=== PATIENT | female | born 1955 | race Caucasian/White ===

== ENCOUNTER → 2017-10-17 07:56 | Outpatient (CLI) | payer MEDICARE, SELFPAY ==
[2017-10-17 10:04] LABS: Absolute Lymphocyte Count 1.66 X10^3/ul (0.83-4.51); Basophil# 0.03 X10^3/uL; Basophil% 0.5 % (0-1); Eosinophil# 0.26 X10^3/uL; Eosinophils% 4.7 % (0-5); Hematocrit 38.5 % (37-47); Hemoglobin 12.4 g/dl (12.0-15.0); Lymphocyte # 1.66 X10^3/ul (4.0); Lymphocyte % 29.8 % (19-41); Mean Corp Hgb Conc 32.2 g/gl (32-36); Mean Corpuscular Hgb 28.8 pg (27.0-32.0); Mean Corpuscular Volume 89.3 fL (81-99); Mean Platelet Vol. 10.3 fl (6.2-12.0); Monocyte# 0.65 X10^3/uL; Monocyte% 11.7 % (0-10); Neutrophil # 2.96 X10^3/uL (2.7-7.7); Neutrophil % 53.1 % (47-70); Platelet Count 260 K/mm3 (150-450); RBC Distribution Width CV 13.6 % (11.6-14.6); RBC Distribution Width SD 43.3 fl (35.1-43.9); Red Blood Count 4.31 M/mm3 (4.2-5.4); White Blood Count 5.6 K/mm3 (4.4-11.0)
[2017-10-17 10:06] LABS: POSITIVE COUNT NO; POSITIVE DIFFERENTIAL NO; POSITIVE MORPHOLOGY NO
[2017-10-17 10:30] LABS: ALB/GLOB Ratio 0.7 RATIO (0.9-2.4); AST(SGOT) 23 U/L (15-37); Alanine Aminotransfer ALT/SGPT 29 U/L (13-56); Albumin, Serum 3.2 g/dL (3.2-5.0); Alkaline Phosphatase 82 U/L (45-117); Anion Gap 6 (5-15); BUN 16 mg/dL (7-18); BUN/Creat Ratio 20.6 RATIO (10-20); Calcium,Total 8.9 mg/dL (8.5-10.1); Chloride 108 mmol/L (98-107); Cholesterol 181 mg/dL (200); Creatinine, Serum 0.78 mg/dL (0.55-1.02); EST Glomerular Filtration Rate 80 mL/min (>60); Est Glom Filt Rate - Afr Amer 96 mL/min (>60); Globulin 4.5 g/dL (2.2-4.2); Glucose 78 mg/dL (74-106); High Density Lipoprotein 48 mg/dL; Potassium 4.3 mmol/L (3.5-5.1); Protein, Total 7.7 g/dL (6.4-8.2); Sodium Level 142 mmol/L (136-145); T4 Free Direct 1.19 ng/dL (0.76-1.46); Thyroid Stim Hormone (TSH) 1.05 uIU/mL (0.358-3.74); Triglycerides 152 mg/dL; Very Low Density Lipoprotein 30 mg/dL (5-40)
== END ==
PROVIDERS: Family Provider Family Medicine; PCP Family Medicine; Visit Provider Family Medicine
DX: I10 Essential (primary) hypertension (principal); E03.9 Hypothyroidism, unspecified; E78.5 Hyperlipidemia, unspecified
CPT/HCPCS: 36415; 80053; 80061; 84439; 84443; 85025

== ENCOUNTER → 2019-04-19 07:51 | Outpatient (CLI) | payer MEDICARE, SELFPAY ==
[2019-04-19 10:06] LABS: Erythrocyte Sedimentation Rate 29 mm/hr (0-30)
[2019-04-19 10:08] LABS: Absolute Lymphocyte Count 1.31 X10^3/uL (0.83-4.51); Absolute Neutrophil Count 3.2 X10^3/uL (2.0-7.7); Basophil# 0.04 X10^3/uL; Basophil% 0.8 % (0-1); Eosinophil# 0.15 X10^3/uL; Eosinophils% 2.9 % (0-5); Hematocrit 40.6 % (37-47); Lymphocyte # 1.31 X10^3/ul (4.0); Lymphocyte % 25.3 % (19-41); Mean Corpuscular Hgb 28.7 pg (27.0-32.0); Mean Corpuscular Volume 89.6 fL (81-99); Mean Platelet Vol. 10.2 fl (6.2-12.0); Monocyte% 9.7 % (0-10); NRBC Flagged by Analyzer 0 % (0-5); Neutrophil # 3.17 X10^3/uL (2.7-7.7); Neutrophil % 61.1 % (47-70); Platelet Count 218 K/mm3 (150-450); RBC Distribution Width CV 14.2 % (11.6-14.6); RBC Distribution Width SD 46.4 fl (35.1-43.9); Red Blood Count 4.53 M/mm3 (4.2-5.4); White Blood Count 5.2 K/mm3 (4.4-11.0)
[2019-04-19 10:29] LABS: Vitamin B12 554 pg/mL (211-911)
[2019-04-19 10:32] LABS: Hemoglobin A1c 5.7 % (4.2-6.3)
[2019-04-19 10:52] LABS: ALB/GLOB Ratio 0.8 RATIO (0.9-2.4); AST(SGOT) 19 U/L (15-37); Alanine Aminotransfer ALT/SGPT 28 U/L (13-56); Albumin, Serum 3.5 g/dL (3.2-5.0); Alkaline Phosphatase 79 U/L (45-117); Anion Gap 7 (5-15); BUN 17 mg/dL (7-18); BUN/Creat Ratio 21.1 RATIO (10-20); CPK Total, Creatine Kinase 163 U/L (26-192); Chloride 107 mmol/L (98-107); Cholesterol 210 mg/dL (200); EST Glomerular Filtration Rate 76 mL/min (>60); Est Glom Filt Rate - Afr Amer 92 mL/min (>60); Globulin 4.6 g/dL (2.2-4.2); Glucose 83 mg/dL (74-106); High Density Lipoprotein 55 mg/dL; Potassium 4.2 mmol/L (3.5-5.1); Protein, Total 8.1 g/dL (6.4-8.2); Rheumatoid Factor < 10.0 IU/mL (<15); Sodium Level 142 mmol/L (136-145); T4 Free Direct 1.32 ng/dL (0.76-1.46); Thyroid Stim Hormone (TSH) 0.49 uIU/mL (0.358-3.74); Triglycerides 157 mg/dL; Very Low Density Lipoprotein 31 mg/dL (5-40)
[2019-04-20 15:04] LABS: SJOGREN'S Anti-SS-A test < 0.2 AI (0.0-0.9); SJOGREN'S Anti-SS-B test < 0.2 AI (0.0-0.9)
[2019-04-20 15:08] LABS: ANTINUCLEAR ANTIBODIES DIRECT Negative (Negative)
[2019-04-21 17:36] LABS: Albumin 3.2 g/dL (2.9-4.4); Albumin, Ur 42.5 % (.); Alpha-1-Globulin, Ur 1.8 % (.); Alpha-1-Globulins 0.3 g/dL (0.0-0.4); Alpha-2-Globulins 0.8 g/dL (0.4-1.0); Alpha-2-Globulins, Ur 6.8 % (.); Beta Globulin, Ur 14.7 % (.); Cytoplasmic Ab (C-ANCA) <1:20 titer (Neg:<1:20); Gamma Globulin 1.7 g/dL (0.4-1.8); Gamma Globulin, Ur 34.1 % (.); Immunoglobulin A 367 mg/dL (87-352); Immunoglobulin G 1807 mg/dL (700-1600); Immunoglobulin M 93 mg/dL (26-217); M-Spike, Ur % Not Observed % (Not Observed); PROEL- TOTAL PROTEIN 7.2 g/dL (6.0-8.5); Total Protein, Ur 51.7 mg/dL (Not Estab.)
[2019-04-21 18:11] LABS: Perinuclear Ab (P-ANCA) <1:20 titer (Neg:<1:20)
== END ==
PROVIDERS: Family Provider Family Medicine; PCP Family Medicine; Referring Provider Psychiatry & Neurology Neurology; Visit Provider Psychiatry & Neurology Neurology
DX: E03.9 Hypothyroidism, unspecified (principal); G62.9 Polyneuropathy, unspecified; E78.5 Hyperlipidemia, unspecified; I10 Essential (primary) hypertension
CPT/HCPCS: 36415; 80053; 80061; 82550; 82607; 82784; 83036; 84165; 84166; 84439; 84443; 85025; 85652; 86038; 86235; 86256; 86334; 86335; 86431

== ENCOUNTER → 2019-05-10 | Outpatient (CLI) | payer MEDICARE, SELFPAY ==
[2015-02-27 10:19] VITALS: BMI 23.4
--- NOTE | 2019-05-10 12:20 | RAD_ITS ---
STUDY: X-RAY CHEST REASON FOR EXAM: Female, 63 years old. Scleritis, secondary iridocyclitis TECHNIQUE: PA and lateral views of the chest. COMPARISON: None. FINDINGS: There is no focal consolidation. The lungs are hyperinflated. Normal size heart. There is a moderate-sized hiatal hernia. Normal visualized pulmonary arteries. There is atherosclerotic calcification of the aortic arch with tortuosity. Normal visualized thoracic spine. Normal visualized ribs, clavicles, and shoulders. There are peripheral calcifications of the visualized abdominal aorta. RAD/Chest PA and Lateral IMPRESSION: Hiatal hernia. Hyperinflated lungs. Atherosclerosis. Electronically Signed: Latoya Sands MD at 17:37 EST Tel , Service support ,
[2019-05-10 14:40] LABS: Erythrocyte Sedimentation Rate 50 mm/hr (0-30)
[2019-05-10 14:58] LABS: CRP < 2.90 mg/L (0.0-3.0); Rheumatoid Factor < 10.0 IU/mL (<15)
[2019-05-10 15:27] LABS: Absolute Lymphocyte Count 1.94 X10^3/uL (0.83-4.51); Absolute Neutrophil Count 6.5 X10^3/uL (2.0-7.7); Basophil# 0.01 X10^3/uL; Basophil% 0.1 % (0-1); Hematocrit 36.7 % (37-47); Hemoglobin 11.6 g/dL (12.0-15.0); Lymphocyte # 1.94 X10^3/ul (4.0); Lymphocyte % 21.2 % (19-41); Mean Corp Hgb Conc 31.6 g/dL (32-36); Mean Corpuscular Hgb 28.2 pg (27.0-32.0); Mean Corpuscular Volume 89.1 fL (81-99); Mean Platelet Vol. 10.7 fl (6.2-12.0); Monocyte# 0.66 X10^3/uL; Monocyte% 7.2 % (0-10); NRBC Flagged by Analyzer 0 % (0-5); Neutrophil # 6.54 X10^3/uL (2.7-7.7); Neutrophil % 71.3 % (47-70); Platelet Count 254 K/mm3 (150-450); RBC Distribution Width CV 14.6 % (11.6-14.6); RBC Distribution Width SD 47.3 fl (35.1-43.9); Red Blood Count 4.12 M/mm3 (4.2-5.4); White Blood Count 9.2 K/mm3 (4.4-11.0)
[2019-05-13 02:46] LABS: Rapid Plasmin Reagin (RPR) NONREACTIVE (NONREACTIVE)
[2019-05-13 16:07] LABS: Cytoplasmic Ab (C-ANCA) <1:20 titer (Neg:<1:20); QNTFERON TB Mitogen Value > 10.00 IU/mL (.); QNTFERON TB Nil Value 0.08 IU/mL (.); QNTFERON TB2+ Ag Value 0.11 IU/mL (.)
[2019-05-13 18:50] LABS: Angiotensin Convert Enzyme < 15 U/L (14-82); Perinuclear Ab (P-ANCA) <1:20 titer (Neg:<1:20); QNTIFERON TB Positive Criteria Negative (Negative)
[2019-05-13 18:51] LABS: HLA B27 Negative (.)
== END | disposition home or self-care (01) ==
LOC: MTLAB 12:15
PROVIDERS: Family Provider Family Medicine; PCP Family Medicine; Referring Provider Ophthalmology; Visit Provider Ophthalmology
DX: H15.091 Other scleritis, right eye (principal); H20.041 Secondary noninfectious iridocyclitis, right eye
CPT/HCPCS: 36415; 71046; 81374; 82164; 85025; 85652; 86038; 86140; 86256; 86431; 86480; 86592

== ENCOUNTER 2019-05-12 07:39 | Day surgery (SDC) | payer MEDICARE, SELFPAY ==
[2015-02-27 10:19] VITALS: BMI 23.4
--- NOTE | 2019-05-12 07:46 | H&P.OPEN ---
History of Present Illness Date of Admission: 05/12/19 The patient is a 63 year old F for screening colonoscopy. Patient has never had a previous colonoscopy. Patient's siblings have had multiple polyps?sister had 3 brother had 5, sister has to go back in 3 years brother has go back in 1 year unsure of the sizes, no family history of colon cancer. Patient states she has bowel movements daily and occasionally had some darker blood. Patient denies any reflux symptoms she is on Celebrex currently to taper prednisone. Patient is not on any PPI or H2 inhibitors, but was recommended to be on them. Past Medical/Surgical History - Planned Operation Planned Operative Procedure/s: cscope Date of Operative Procedure: 05/12/19 Permit Signed: No S.O.S: No Is This Patient Having a Total Joint: No - Previous Hospitalizations/Surgeries HX Hospitalizations: No HX of Surgeries: TONSILLECTOMY. 5TH FINGER L HAND 1980. EXP LAP 1982-found that appendix previously ruptured only scar tissue left. 5TH FINGER L HAND 1995. BASAL CELL CANCER R SIDE TEMPAL AREA 2012. right tkr 2014 Any Problems With Anesthesia: Yes - 1982 slow to awaken You/Your Family Experience Fever (Hyperthermia) With Anes: No Cholinesterase deficiency: No - Cardiovascular Hx Chest Pain within Last 2 months: No Hx of Irregular Heartbeat and/or Afib: No Hx Heart Attack: No Hx Congestive Heart Failure: No Hx Rheumatic Fever: No Hx Hypertension: Yes - controlled with med Hx Internal Defibrillator: No Hx Pacemaker: No Hx Cardiac Catheterization: No Hx Cardiac Surgery/Stents/Etc.: No Hx Stress Test: No HX Edema: No Hx Pain in Legs when Walking/Leg Cramps: Yes - d/t hereditary neuropathy disorder (cmt) - Respiratory Chronic Cough: No HX of Shortness of Breath: Yes - slightly sob with 2 flights of stairs Hoarseness: No Hx Chronic Obstructive Pulmonary Disease (COPD): No Hx Asthma: No Hx Emphysema: No Hx Sleep Apnea: No CPAP: No BIPAP: No Hx Oxygen Use at Home: No Hx Respiratory Tract Infection/Cold (presently): No Do You Snore Loudly (louder than talking or can be heard): No Do You Often Feel Tired/ Fatigued/ Sleepy Dring Daytime?: No Has Anyone Observed You Stop Breathing During Sleep?: No Result (for STOP score): Negative Hx Smoking: No Smoking Status: Never smoker - Gastrointestinal Hx Gastroesophageal Reflux: Yes Controlled With Meds: No - diet controlled Hx Gastrointestinal Disorders: No Hx Gastrointestinal Bleed: No Hx Ulcer: Yes - 10 yrs ago Hx Hiatal Hernia: Yes - small Difficulty Chewing/Swallowing: No Recent Onset of Swallowing Problems: No Special diet followed at home: No - . Hx Unplanned Weight Loss of 20#: No HX Unplanned Weight Gain of 20#: No - Neurological Hx Seizures: No HX Syncope/Blackout Spells/Unconsciousness: Yes - syncope from side effects of gabapentin/fall risk/ Hx CVA/Stroke: No Hx Transient Ischemic Attacks (TIA): No Hx Multiple Sclerosis: No Hx Parkinson's Disease: No Hx Head/Neck Injury: No Hx Headaches: No Hx Back Injury/Pain: Yes - arthritis pain/patient had hereditary neuropathy disorder(cmt) Recent Onset of Speech Difficulty: No Restless Legs: Yes Does patient have nerve stimulator: No Patient instructed to have device shut off: No Rep notified?: No - Blood Disorder Hx Leukemia: No Bleeding Tendencies: No Hx Deep Vein Thrombosis: No Hx High Cholesterol: Yes - on med Blood Transmitted Disease: No Hx Hepatitis: No Hx Cirrhosis: No Hx Anemia: Yes - in the past Hx Blood Disorders: No - Reproduction : No Is Patient Lactating: No Hx Hysterectomy: No Hx Tubal Ligation: No Are You Post Menopause: Yes - Genitourinary Hx Renal Disease: No - Musculoskeletal Hx Arthritis: Yes Hx Rheumatoid Arthritis: No Hx Gout: No Recent Onset of an Orthopedic Problem: No - . - Endocrine Hx Diabetes: No Thyroid Disease: Yes - on med Hx Steroid Therapy: Yes - on prednisone currently for eye irritation - Psycho/Social Hx Substance Use: No Hx Alcohol Use: No Hx Anxiety: No Hx Depression: No Mental Illness: No Hx Dementia: No - Miscellaneous Hx Cancer: Yes - BASAL CELL R YARSANI Recent Exposure to Contagious Disease: No Active MRSA: No Hx of C-Diff: No Any Loose Teeth: No Additional information pertinent to anesthesia:: patient has a pessery Allergies acetaminophen [From Percocet] Allergy (Verified 05/10/19 13:34) Hives aloe vera Allergy (Verified 05/10/19 13:31) Hives coconut Allergy (Verified 05/10/19 13:34) Other cocanut milk lanolin Allergy (Verified 05/10/19 13:34) Hives miconazole nitrate [From Monistat 7] Allergy (Verified 05/10/19 13:31) Hives oxycodone [From Percocet] Allergy (Verified 05/10/19 13:34) Hives Penicillins Allergy (Verified 05/10/19 13:31) Hives Sulfa (Sulfonamide Antibiotics) Allergy (Verified 05/10/19 13:31) Hives tioconazole [From Monistat 1] Allergy (Verified 05/10/19 13:31) Hives erythromycin base [Erythromycin Base] Adverse Reaction (Verified 05/10/19 13:31) Upset Stomach gluten Adverse Reaction (Verified 05/10/19 13:31) Other hydromorphone Adverse Reaction (Verified 05/10/19 13:34) confusion oxytocin Adverse Reaction (Verified 05/10/19 13:34) syncope tramadol Adverse Reaction (Verified 05/10/19 13:34) Diarrhea VITAMIN B12 Allergy (Uncoded 05/10/19 13:31) Hives - Discharge Is Pt Admitted From a Shelter, or a Mcfp: No Who Could Help: family Special Equipment Used at Home: cane After D/C, Where Do you Plan to Go: Return Home - From the PAT History Number of Risk Factors: 6 - Physical Exam Vitals/I&O's: Body Mass Index (BMI) 23.4 General: Alert, Oriented x3, Cooperative, No apparent distress HEENT: Atraumatic Lungs: Normal air movement Cardiovascular: Regular rate Abdomen: Soft, Non Tender, Non-Distended Extremities: No clubbing, No cyanosis, No edema Neurological: Cranial nerves II-XII grossly intact Psych/Mental Status: Normal Affect Assessment/Plan 63-year-old female for screening for colon cancer Surgery Risks - Colonoscopy I discussed with the patient the risks of the procedure: Yes Risks Include but are not Limited To: Risks include but are not limited to: Bleeding, perforation requiring further surgery, inability to complete colonoscopy requiring barium enema.
[2019-05-12 08:10] VITALS: BP 151/91; PULSE 76; RESP 16; TEMP 36.7; O2SAT 94; BMI 28.1
[2019-05-12] MEDS: Lactated Ringers 1,000 ML 100 ML IV (08:18)
--- NOTE | 2019-05-12 08:45 | COLBX_PTH ---
PATIENT: ЕЛЕНА GOMEZ LOC: EN U#:[id number] AGE/SX: 63/F ROOM: RE05/12/[address]: Dr. Lisa Gant MD : 1955 BED: DIS: 05/12/2019 SPEC #: [id number] RECD: 05/12/19 10:29 STATUS: CORTNEY RERhoda #: [id number] ALEN: 05/12/19 08:[address]: Lisa Gant DEPT: SURGICAL PATHOLOGY RECD BY: Festus Perez ENTERED: 05/12/19 11:03 SP TYPE: COLON BX OTHR DR: Dr. Juan Pablo Araujo DO Tissues: Descending colon Procedures: Surgery Specimen Level IV HEADER OPERATION: Colonoscopy - open access (MAC) PRE-OP DIAGNOSIS: Screening TISSUE SUBMITTED: Descending colon polyp MICROSCOPIC DIAGNOSIS Descending colon polyp, biopsy: Fragments of tubular adenoma. SJ:prateek 05/13/19 MICROSCOPIC DESCRIPTION Slides are reviewed. GROSS DESCRIPTION Received in fixative is one container labeled with the patient's name and designated descending colon polyp. The specimen consists of multiple irregular fragments of light amor soft tissue that in aggregate measure 1 x 0.3 x 0.1 cm. The specimen is totally submitted in one cassette. / SJ:prateek 05/12/19 TC:5 CPT: 53486
[2019-05-12 09:17] VITALS: BP 136/88; BP 151/91; PULSE 62; RESP 16; TEMP 36.2; O2SAT 96
[2019-05-12 09:20] VITALS: BP 136/83; BP 151/91; PULSE 66; RESP 16; O2SAT 94
--- NOTE | 2019-05-12 09:20 | OP.COLON_ITS ---
Patient Name: Stacia Gamboa Procedure Date: 05/12/2019 8:43 AM Date of : 1955 Age: 63 Procedure: Colonoscopy Indications: Screening for colorectal malignant neoplasm, siblings with colon polyps unsure of size Providers: Lisa Gant MD Referring MD: Juan Pablo Araujo Medicines: Monitored Anesthesia Care Patient Profile: This is a 63 year old female. Last Colonoscopy: none. The patient's first colonoscopy is today. Complications: No immediate complications. Procedure: Pre-Anesthesia Assessment: - Prior to the procedure, a History and Physical was performed, and patient medications and allergies were reviewed. The patient's tolerance of previous anesthesia was also reviewed. The risks and benefits of the procedure and the sedation options and risks were discussed with the patient. All questions were answered, and informed consent was obtained. Prior Anticoagulants: The patient has taken no previous anticoagulant or antiplatelet agents. ASA Grade Assessment: II - A patient with mild systemic disease. After reviewing the risks and benefits, the patient was deemed in satisfactory condition to undergo the procedure. After I obtained informed consent, the scope was passed under direct vision. Throughout the procedure, the patient's blood pressure, pulse, and oxygen saturations were monitored continuously. The pediatric colonoscope was introduced through the anus and advanced to the cecum, identified by the ileocecal valve. The colonoscopy was performed without difficulty. The patient tolerated the procedure well. The quality of the bowel preparation was good. Scope In: 8:56:18 AM Scope Withdrawal Time 0 hours 13 minutes 23 seconds Scope Out: 9:13:37 AM Total Procedure Duration Time 0 hours 17 minutes 19 seconds Findings: The perianal and digital rectal examinations were normal. A less than 5 mm polyp was found in the descending colon. The polyp was sessile. The polyp was removed with a cold biopsy forceps. Resection and retrieval were complete. Multiple small-mouthed diverticula were found in the sigmoid colon. The entire examined colon appeared normal on direct and retroflexion views. Impression: - One less than 5 mm polyp in the descending colon, removed with a cold biopsy forceps. Resected and retrieved. - Diverticulosis in the sigmoid colon. - The entire examined colon is normal on direct and retroflexion views. Recommendation: - Discharge patient to home. - High fiber diet. - Continue present medications. - Await pathology results. - Repeat colonoscopy in 5 years for surveillance based on pathology results. Procedure Code(s): --- Professional --- 98067, Colonoscopy, flexible; with biopsy, single or multiple Diagnosis Code(s): --- Professional --- Z12.11, Encounter for screening for malignant neoplasm of colon D12.4, Benign neoplasm of descending colon K57.30, Diverticulosis of large intestine without perforation or abscess without bleeding CPT copyright 2017 [employer]. All rights reserved. The codes documented in this report are preliminary and upon logistics lead review may be revised to meet current compliance requirements. MD Lisa Blanton MD 05/12/2019 9:20:08 AM This report has been signed electronically. Number of Addenda: 0 Note Initiated On: 05/12/2019 8:43 AM
[2019-05-12 09:25] VITALS: BP 136/85; BP 151/91; PULSE 68; RESP 16; O2SAT 96
[2019-05-12 09:26] VITALS: BP 149/72; BP 151/91; PULSE 68; RESP 16; TEMP 36.2; O2SAT 96
[2019-05-12 10:05] VITALS: BP 151/91
== END 2019-05-12 10:31 | disposition home or self-care (01) ==
LOC: EN 07:40 → AC 07:42
PROVIDERS: Family Provider Family Medicine; PCP Family Medicine; Referring Provider Family Medicine; Visit Provider Surgery
PROC: 0DJD8ZZ Inspection of Lower Intestinal Tract, Via Natural or Artificial Opening Endoscopic (ICD-10-PCS; CPT 45378; principal; 2019-05-12 08:40)
DX: Z12.11 Encounter for screening for malignant neoplasm of colon (principal); D12.4 Benign neoplasm of descending colon; K57.30 Diverticulosis of large intestine without perforation or abscess without bleeding; I10 Essential (primary) hypertension; G60.9 Hereditary and idiopathic neuropathy, unspecified; K21.9 Gastro-esophageal reflux disease without esophagitis; E78.00 Pure hypercholesterolemia, unspecified; E07.9 Disorder of thyroid, unspecified; Z85.828 Personal history of other malignant neoplasm of skin; Z79.52 Long term (current) use of systemic steroids; Z79.899 Other long term (current) drug therapy
CPT/HCPCS: 45380; 88305; J7120

== ENCOUNTER → 2019-06-18 07:48 | Outpatient (CLI) | payer MEDICARE, SELFPAY ==
[2019-06-16 14:01] VITALS: BMI 28.1
--- NOTE | 2019-06-18 07:57 | RAD_ITS ---
STUDY: AIR-CONTRAST UPPER GI SERIES. REASON FOR EXAM: Female, 63 years old. Food getting stuck upper and distal since APR 2019 FLUOROSCOPY TIME (if supplied): ( 48 seconds ) minutes/seconds. 16 images were obtained. TECHNIQUE: The patient ingested barium. Multiple images of the esophagus, stomach and duodenum were obtained. COMPARISON: None. FINDINGS: There is evidence of a large sliding hiatal hernia with gastroesophageal reflux. The remainder of the stomach and duodenum is unremarkable. No evidence of ulceration. IMPRESSION: Large hiatal hernia with gastroesophageal reflux. Electronically Signed: Isaias Langley, at 10:35 EST , Service support , STUDY: X-RAY - ESOPHAGUS (BARIUM SWALLOW) WITH FLUOROSCOPY REASON FOR EXAM: Female, 63 years old. Food getting stuck upper and distal since APR 2019 TECHNIQUE: 11 view(s) of the esophagus were obtained following swallowing of barium. FLUOROSCOPY TIME (if supplied): (0:48) minutes/seconds COMPARISON: None. FINDINGS: There is no demonstrated esophageal foreign body. There is no demonstrated stricture or mucosal abnormality. There is a large hiatal hernia with intrathoracic herniation of the fundus of the stomach. Gastroesophageal reflux. The patient ingested a 12 mm tablet of barium without any difficulty. Normal visualized aortic arch and descending thoracic aorta. Normal visualized pulmonary parenchyma. Normal visualized osseous structures of the thorax. RAD/Upper GI w/BA Swallow IMPRESSION: Large hiatal hernia with gastroesophageal reflux. Electronically Signed: Isaias Langley, at 10:37 EST , Service support ,
== END ==
PROVIDERS: Family Provider Family Medicine; PCP Family Medicine; Referring Provider Surgery; Visit Provider Surgery
DX: R13.10 Dysphagia, unspecified (principal)
CPT/HCPCS: 74246

== ENCOUNTER 2019-06-25 08:24 | Day surgery (SDC) | payer MEDICARE, SELFPAY ==
[2019-06-16 14:01] VITALS: BMI 28.1
--- NOTE | 2019-06-17 08:32 | HP_ITS ---
Intake Vital Signs 06/14/19 BMI 28.1 Intake Visit Reasons: Gastrointestinal complaints Fuel Technician Required: No Is patient in pain?: No Allergies acetaminophen [From Percocet] Allergy (Verified 06/16/19 14:00) Hives aloe vera Allergy (Verified 06/16/19 14:00) Hives coconut Allergy (Verified 06/16/19 14:00) Other lanolin Allergy (Verified 06/16/19 14:00) Hives miconazole nitrate [From Monistat 7] Allergy (Verified 06/16/19 14:00) Hives oxycodone [From Percocet] Allergy (Verified 06/16/19 14:00) Hives Penicillins Allergy (Verified 06/16/19 14:00) Hives Sulfa (Sulfonamide Antibiotics) Allergy (Verified 06/16/19 14:00) Hives tioconazole [From Monistat 1] Allergy (Verified 06/16/19 14:00) Hives erythromycin base [Erythromycin Base] Adverse Reaction (Verified 06/16/19 14:00) Upset Stomach gluten Adverse Reaction (Verified 06/16/19 14:00) Other hydromorphone Adverse Reaction (Verified 06/16/19 14:00) confusion oxytocin Adverse Reaction (Verified 06/16/19 14:00) syncope tramadol Adverse Reaction (Verified 06/16/19 14:00) Diarrhea VITAMIN B12 Allergy (Uncoded 06/16/19 14:00) Hives Medications Levothyroxine Sodium [Levoxyl] 112 mcg PO DAILY 10/05/13 [History Confirmed 06/16/19] Multivitamins,Therapeutic [Multivitamin] 1 tab PO DAILY 10/05/13 [History Confirmed 06/16/19] Pravastatin [Pravachol] 40 mg PO QODAY 10/05/13 [History Confirmed 06/16/19] Dominique Allergy 1 tab PO DAILY 02/15/15 [History Confirmed 06/16/19] Celecoxib [Celebrex] 200 mg PO DAILY 05/10/19 [History Confirmed 06/16/19] Gabapentin [Neurontin] 600 mg PO TIDCM 05/10/19 [History Confirmed 06/16/19] Lisinopril [Zestril] 20 mg PO DAILY 05/10/19 [History Confirmed 06/16/19] Montelukast [Singulair] 10 mg PO DAILY 05/10/19 [History Confirmed 06/16/19] pantoprazole 40 mg tablet,delayed release 40 mg PO BID #60 tab 06/16/19 [Rx Confirmed 06/16/19] prednisone 10 mg tablet 10 mg PO BID tab 06/16/19 [History Confirmed 06/16/19] [facility] Medical History (Updated 06/16/19 @ 14:06 by Lisa Gant MD) Dysphagia (Acute) GERD (gastroesophageal reflux disease) (Acute) High cholesterol (Acute) Hypothyroid (Acute) HTN (hypertension) (Chronic) Social History (Updated 06/17/19 @ 08:32 by Lisa Gant MD) Smoking Status: Never smoker HPI HPI HPI: ЕЛЕНА GOMEZ, is a 63 F who presents to the office today for HPI HPI Surgical H&P: Yes HPI: ЕЛЕНА GOMEZ, is a 63 F who presents to the office today for dysphasia and reflux. Patient states that since her colonoscopy on 05/12/2019 patient did start the omeprazole 40 mg daily as she had previously been advised to be on a PPI. However patient states that she does still have the daily reflux with the PPI and also several days after colonoscopy started noticing that any solid food would get stuck in her upper throat and feel the same in her lower esophagus. Patient denies any issues with liquids. Patient is currently being worked up for possible autoimmune disease. Patient states about 20 years ago she did have an EGD which showed a small hiatal hernia and she was negative for celiac at that time, and patient was tested because other family members had celiac. ROS Gastro Gastrointestinal: No abdominal pain, No diarrhea, No constipation, No blood in stool, Yes acid reflux, No hemorrhoids, No gallbladder problem, No black,tarry stools Exam Const General: cooperative, comfortable, no acute distress Resp Effort & Inspection: normal respiratory effort Cardio Rate: regular rate GI Inspection: non-distended Palpation: soft, no guarding, nontender Assessment & Plan Problems 1. Gastroesophageal reflux disease K21.9 2. Dysphagia R13.10 Plan Will have patient get an upper GI study prior to doing the EGD. We will change patient from omeprazole to Protonix to see if that helps initially we will have her take it twice a day to see if the reflux symptoms or any with dysphasia may improve. I have discussed the above with the patient. I have offered the patient EGD for evaluation. I have explained the risks/benefits of the procedure and described the procedure. I have discussed the risks with the patient, including but not limited to: infection, bleeding, perforation of the GI tract requiring emergency surgery, inability to complete the procedure, injury to any internal organs, complications of anesthesia, etc. - the patient understands and agrees to proceed. I have answered all the patient's questions to the patient's satisfaction and the patient has no further questions. Lisa Gant M.D. Pager: [phone] [facility] [address] [place] [address], [facility], [address] [place] [address] Office: [phone] Orders Orders: EGD 06/16/19 Upper GI w/BA Swallow 06/16/19 R13.10 Medications New: pantoprazole 40 mg PO BID 60 tabs 1RF Discontinued: omeprazole Discontinued Reason: Order Changed 40 mg PO DAILY 30 caps 0RF Plan Detail Follow Up We will schedule upper GI and then will plan to schedule EGD Coding Level of Care Code Off vis,est,level 3 Diagnoses Gastroesophageal reflux disease K21.9 Dysphagia R13.10 06/17/19 0832 <Electronically signed by Lisa Galvan am, MD> Date _ Lisa Gant MD I have examined the patient the following changes are noted: Patient has been on Protonix 40 mg p.o. twice daily she states her GERD is much better she does not have symptoms at night anymore her dysphasia in her upper throat is gone, she still has occasional dysphasia lower in her chest. Patient had a upper GI which did show a large hiatal hernia about half of her stomach, no issues in her upper esophagus.
[2019-06-25 08:40] VITALS: BP 136/82; PULSE 72; RESP 15; TEMP 36.1; O2SAT 96
[2019-06-25] MEDS: Lactated Ringers 1,000 ML 100 ML IV (08:51)
[2019-06-25 09:28] VITALS: BP 125/77; BP 136/82; PULSE 87; RESP 16; TEMP 36.6; O2SAT 92
[2019-06-25 09:30] VITALS: BP 125/82; BP 136/82; PULSE 81; RESP 16; O2SAT 93
--- NOTE | 2019-06-25 09:30 | IMM_PTH ---
PATIENT: ЕЛЕНА GOMEZ LOC: EN U#:[id number] AGE/SX: 63/F ROOM: RE06/25/[address]: Dr. Lisa Gant MD : 1955 BED: DIS: 06/25/2019 SPEC #: [id number] RECD: 06/25/19 10:59 STATUS: CORTNEY REQ #: [id number] ALEN: 06/25/19 09:[address]: Lisa Gant DEPT: IMMUNOHISTOCHEMISTRY RECD BY: Shadia Ware ENTERED: 06/25/19 10:59 SP TYPE: IMMUNO OTHR DR: Dr. Juan Pablo Araujo, DO Tissues: A - Stomach, NOS Procedures: H Pylori (initial) PHYSICIAN & INSTITUTION [place] [id number] SPECIMEN INFORMATION: Tissue Source: A - Antral biopsy Clinical Info: Dysphagia, reflux Specimen Number: [id number] CPT code: 06948 METHODOLOGY: Deparaffinized sections of prefer/formalin-fixed tissue or PAP/DQ stained slides are incubated with monoclonal/polyclonal antibodies/oligonucleotide probes. Localization is made via biotin free immunoperoxidase method. Appropriate controls are performed and reacted as expected. Results on target cell population are indicated in the following table: RESULTS: ANTIBODY / CLONE RESULT Block A H Pylori (polyclonal) negative These tests were developed and their performance characteristics determined by [facility]. They may not have been cleared or approved by the U.S. Food and Drug Administration. The FDA has determined that such clearance or approval is not necessary. INTERPRETATION: A. Antral biopsy: Negative for Helicobacter pylori organisms. AM:prateek 06/29/19
--- NOTE | 2019-06-25 09:30 | EGD_PTH ---
PATIENT: ЕЛЕНА GOMEZ LOC: EN U#:[id number] AGE/SX: 63/F ROOM: RE06/25/[address]: Dr. Lisa Gant MD : 1955 BED: DIS: 06/25/2019 SPEC #: [id number] RECD: 06/25/19 10:04 STATUS: CORTNEY RERhoda #: [id number] ALEN: 06/25/19 09:[address]: Lisa Gant DEPT: SURGICAL PATHOLOGY RECD BY: Cipriano Caceres ENTERED: 06/25/19 10:49 SP TYPE: EGD BIOPSY OT DR: Dr. Juan Pablo Araujo DO Tissues: A - Gastric mucous membrane B - Gastric mucous membrane C - Esophageal mucous membrane Procedures: Special Stain Group I Surgery Specimen Level IV GMS Stain (control) HEADER OPERATION: EGD ([facility] [place]) PRE-OP DIAGNOSIS: Dysphagia, reflux TISSUE SUBMITTED: A. Antral biopsy for H. pylori and pathology, B. GE junction biopsy for reyes and pathology, C. Mid esophageal biopsy for reyes and pathology MICROSCOPIC DIAGNOSIS A. Gastric antrum, biopsy: Chronic gastritis with focal chronic active gastritis. See comment. B. Gastroesophageal junction, biopsy: Consistent with acute esophagitis. Organisms consistent with Reyes species. See comment. C. Mid esophagus, biopsy: Consistent with acute esophagitis. Organisms consistent with Reyes species. See comment. AM:prateek 06/28/19 COMMENT A. The results of immunohistochemistry for Helicobacter pylori will be reported separately ([id number]). B. GMS stain with matched control was used in the evaluation of this case. Glandular epithelium is not represented in the biopsy. Clinical correlation is suggested. C. GMS stain with matched control was used in the evaluation of this case. MICROSCOPIC DESCRIPTION Slides are reviewed. GROSS DESCRIPTION A - Received in fixative is one container labeled with the patient's name and designated antral biopsy. The specimen consists of one irregular fragment of light amor soft tissue that measures 0.5 x 0.3 x 0.1 cm. The specimen is totally submitted in one cassette. B - Received in fixative is one container labeled with the patient's name and designated GE junction biopsy. The specimen consists of two irregular fragments of light amor soft tissue that in aggregate measure 0.6 x 0.6 x 0.1 cm. The specimen is totally submitted in one cassette. C - Received in fixative is one container labeled with the patient's name and designated mid esophagus biopsy. The specimen consists of two irregular fragments of light amor soft tissue that in aggregate measure 0.7 x 0.3 x 0.1 cm. The specimen is totally submitted in one cassette. / AM:prateek 06/25/19 TC:2 CPT: 54498 x3, 16538 x2
[2019-06-25 09:35] VITALS: BP 123/83; BP 136/82; PULSE 77; RESP 16; O2SAT 94
[2019-06-25 09:38] VITALS: BP 129/89; BP 136/82; PULSE 74; RESP 16; TEMP 36.1; O2SAT 94
--- NOTE | 2019-06-25 09:38 | OP.EGD_ITS ---
Patient Name: Stacia Gamboa Procedure Date: 06/25/2019 8:58 AM Date of : 1955 Age: 63 Procedure: Upper GI endoscopy Indications: Dysphagia, Heartburn Providers: Lisa Gant MD Referring MD: Juan Pablo Araujo Medicines: Monitored Anesthesia Care Patient Profile: This is a 63 year old female. Complications: No immediate complications. Procedure: Pre-Anesthesia Assessment: - Prior to the procedure, a History and Physical was performed, and patient medications and allergies were reviewed. The patient's tolerance of previous anesthesia was also reviewed. The risks and benefits of the procedure and the sedation options and risks were discussed with the patient. All questions were answered, and informed consent was obtained. Prior Anticoagulants: The patient has taken no previous anticoagulant or antiplatelet agents. ASA Grade Assessment: II - A patient with mild systemic disease. After reviewing the risks and benefits, the patient was deemed in satisfactory condition to undergo the procedure. After obtaining informed consent, the endoscope was passed under direct vision. Throughout the procedure, the patient's blood pressure, pulse, and oxygen saturations were monitored continuously. The gastroscope was introduced through the mouth, and advanced to the second part of duodenum. The upper GI endoscopy was accomplished without difficulty. The patient tolerated the procedure well. Scope In: 9:18:11 AM Scope Out: 9:25:03 AM Total Procedure Duration Time 0 hours 6 minutes 52 seconds Findings: The Z-line was variable and was found 33 cm from the incisors. Biopsies were taken with a cold forceps for histology. A large hiatal hernia was present. Mild inflammation characterized by erythema was found in the gastric antrum. Biopsies were taken with a cold forceps for histology. Biopsies were taken with a cold forceps for Helicobacter pylori cultures. , white plaques were found in the upper third of the esophagus and in the middle third of the esophagus. Biopsies were taken with a cold forceps for histology. The examined duodenum was normal. Impression: - Z-line variable, 33 cm from the incisors. Biopsied. - Large hiatal hernia. - Gastritis. Biopsied. - Esophageal plaques were found, suspicious for candidiasis. Biopsied. - Normal examined duodenum. Recommendation: - Await pathology results. - Resume previous diet. - Continue present medications. - Diflucan (fluconazole) 400 mg PO x1 day then 200 mg PO daily for 2 weeks. - Await pathology results. Procedure Code(s): --- Professional --- 00642, Esophagogastroduodenoscopy, flexible, transoral; with biopsy, single or multiple Diagnosis Code(s): --- Professional --- K22.8, Other specified diseases of esophagus K44.9, Diaphragmatic hernia without obstruction or gangrene K29.70, Gastritis, unspecified, without bleeding K22.9, Disease of esophagus, unspecified R13.10, Dysphagia, unspecified R12, Heartburn CPT copyright 2017 [employer]. All rights reserved. The codes documented in this report are preliminary and upon melt house drag operator review may be revised to meet current compliance requirements. MD Lisa Blanton MD 06/25/2019 9:37:53 AM This report has been signed electronically. Number of Addenda: 0 Note Initiated On: 06/25/2019 8:58 AM
[2019-06-25 09:51] VITALS: BP 136/82
== END 2019-06-25 10:12 | disposition home or self-care (01) ==
LOC: EN 08:24 → AC 08:25
PROVIDERS: Family Provider Family Medicine; PCP Family Medicine; Referring Provider Family Medicine; Visit Provider Surgery
PROC: 0DJ08ZZ Inspection of Upper Intestinal Tract, Via Natural or Artificial Opening Endoscopic (ICD-10-PCS; CPT 43235; principal; 2019-06-25 09:25)
DX: K29.50 Unspecified chronic gastritis without bleeding (principal); K21.9 Gastro-esophageal reflux disease without esophagitis; K44.9 Diaphragmatic hernia without obstruction or gangrene; R12 Heartburn; E78.00 Pure hypercholesterolemia, unspecified; E03.9 Hypothyroidism, unspecified; I10 Essential (primary) hypertension; R13.10 Dysphagia, unspecified; Z79.899 Other long term (current) drug therapy; Z79.52 Long term (current) use of systemic steroids
CPT/HCPCS: 43239; 88305; 88312; 88342; J7120

== ENCOUNTER → 2019-07-20 10:22 | Outpatient (CLI) | payer MEDICARE, SELFPAY ==
[2019-07-20 11:29] LABS: EXAGEN MAILED SPECIMEN
[2019-07-20 12:14] LABS: Glucose, Dipstick Normal (Normal); Ketone-Dipstick Negative (Negative); Leukocyte Esterase-Dipstick 500 /ul (Negative); Nitrite-Dipstick Negative (Negative); Occult Blood-Urine 150 /ul (Negative); Protein-Dipstick 30 mg/dl (Negative); Specific Gravity, Urine 1.015 (1.002-1.030); Urine Bilirubin Dipstick Negative (Negative); Urine Urobilinogen Normal (Normal)
[2019-07-20 12:18] LABS: Color, Urine Yellow (Yellow); Urine Clarity Clear (Clear)
[2019-07-20 12:28] LABS: Absolute Lymphocyte Count 1.43 X10^3/uL (0.83-4.51); Basophil# 0.04 X10^3/uL; Basophil% 0.8 % (0-1); Eosinophil# 0.15 X10^3/uL; Eosinophils% 2.9 % (0-5); Hematocrit 38.1 % (37-47); Lymphocyte # 1.43 X10^3/ul (4.0); Lymphocyte % 27.3 % (19-41); Mean Corp Hgb Conc 31.5 g/dL (32-36); Mean Corpuscular Hgb 28.6 pg (27.0-32.0); Mean Corpuscular Volume 90.9 fL (81-99); Mean Platelet Vol. 10.5 fl (6.2-12.0); Monocyte% 11.5 % (0-10); NRBC Flagged by Analyzer 0 % (0-5); Neutrophil # 2.99 X10^3/uL (2.7-7.7); Neutrophil % 57.1 % (47-70); Platelet Count 240 K/mm3 (150-450); Protein, Urine (Random) 45.5 mg/dL (<11.9); Protein:Creat Ratio 250 mg/g CRE (0-200); RBC Distribution Width CV 14.8 % (11.6-14.6); RBC Distribution Width SD 49.2 fl (35.1-43.9); Red Blood Count 4.19 M/mm3 (4.2-5.4); White Blood Count 5.2 K/mm3 (4.4-11.0)
[2019-07-20 12:44] LABS: ALB/GLOB Ratio 0.8 RATIO (0.9-2.4); AST(SGOT) 24 U/L (15-37); Alanine Aminotransfer ALT/SGPT 39 U/L (13-56); Albumin, Serum 3.3 g/dL (3.2-5.0); Alkaline Phosphatase 64 U/L (45-117); Anion Gap 4 (5-15); BUN 17 mg/dL (7-18); Calcium,Total 9.3 mg/dL (8.5-10.1); Chloride 112 mmol/L (98-107); Creatinine, Serum 0.89 mg/dL (0.55-1.02); EST Glomerular Filtration Rate 67 mL/min (>60); Est Glom Filt Rate - Afr Amer 81 mL/min (>60); Globulin 4.3 g/dL (2.2-4.2); Glucose 83 mg/dL (74-106); Protein, Total 7.6 g/dL (6.4-8.2); Sodium Level 144 mmol/L (136-145)
[2019-07-20 13:27] LABS: Hepatitis B Surface Antibody Non-Reactive; Hepatitis B Surface Antigen Non-Reactive (Nonreactive); Hepatitis C Antibody Non-Reactive (Nonreactive)
[2019-07-21 20:24] LABS: Hepatitis B Core AB IgM Negative (Negative)
== END ==
PROVIDERS: PCP Family Medicine; Referring Provider Internal Medicine Rheumatology; Visit Provider Internal Medicine Rheumatology
DX: M06.4 Inflammatory polyarthropathy (principal); R76.8 Other specified abnormal immunological findings in serum; M79.7 Fibromyalgia; Q66.71 Congenital pes cavus, right foot; G60.0 Hereditary motor and sensory neuropathy; H15.091 Other scleritis, right eye; H20.9 Unspecified iridocyclitis; I10 Essential (primary) hypertension; E03.9 Hypothyroidism, unspecified; E78.5 Hyperlipidemia, unspecified; J30.9 Allergic rhinitis, unspecified
CPT/HCPCS: 36415; 80053; 81002; 82570; 84156; 85025; 86705; 86706; 86803; 87340

== ENCOUNTER → 2019-08-23 | Outpatient (CLI) | payer MEDICARE, SELFPAY ==
--- NOTE | 2019-08-23 09:50 | US_ITS ---
STUDY: ABDOMINAL ULTRASOUND - RIGHT UPPER QUADRANT REASON FOR VISIT: Female, 63 years old. Elevated liver function tests TECHNIQUE: Ultrasound evaluation of the right upper quadrant was performed with real-time and static jacobs-scale imaging. TECHNICAL QUALITY: Adequate. COMPARISON: None. FINDINGS: Liver: The liver measures 14.7 cm. There is increased hepatic echogenicity.. The bile ducts are within normal limits. There is hepatic color flow. The direction of portal flow is hepatopetal. There are 2 hyperechoic lesions in the right lobe measuring approximately 1 cm. Gallbladder: Normal distended gallbladder. The gallbladder wall measures 2.5 mm. There is a negative sonographic Enrique''s sign. There is no pericholecystic fluid. There are no gallstones. Common Bile Duct (C.B.D.): The common bile duct measures 4 mm. Pancreas: Normal size of the head, body and tail of the pancreas. There is normal echogenicity of the pancreas. There is no demonstrated pancreatic mass or cyst. Right Kidney: Normal size of the right kidney. The right kidney measures 9.9 x 4.3 x 3.5 cm. Normal renal cortex. The right cortex measures 1 cm. There is no demonstrated renal mass or cyst. There is no right hydronephrosis. US/Liver IMPRESSION: 1. Hepatic steatosis. 2. 2 small hepatic lesions, refer to definitive confirmatory imaging. Appearance is nonspecific and hemangioma is most probable diagnosis. Electronically Signed: Ryan Luu, at 19:55 EST Tel , Service support ,
== END | disposition home or self-care (01) ==
LOC: US 09:48
PROVIDERS: PCP Family Medicine; Referring Provider Internal Medicine Rheumatology; Visit Provider Internal Medicine Rheumatology
DX: M06.4 Inflammatory polyarthropathy (principal); R76.8 Other specified abnormal immunological findings in serum; M79.7 Fibromyalgia; Q66.71 Congenital pes cavus, right foot; G60.0 Hereditary motor and sensory neuropathy; H15.091 Other scleritis, right eye; H20.9 Unspecified iridocyclitis; I10 Essential (primary) hypertension; E03.9 Hypothyroidism, unspecified; E78.5 Hyperlipidemia, unspecified; J30.9 Allergic rhinitis, unspecified
CPT/HCPCS: 76705

== ENCOUNTER → 2019-11-02 | Outpatient (CLI) | payer MEDICARE, SELFPAY ==
[2019-11-02 09:51] LABS: Absolute Lymphocyte Count 1.55 X10^3/uL (0.83-4.51); Absolute Neutrophil Count 3.5 X10^3/uL (2.0-7.7); Basophil# 0.03 X10^3/uL; Basophil% 0.5 % (0-1); Eosinophil# 0.19 X10^3/uL; Eosinophils% 3.3 % (0-5); Hematocrit 38.8 % (37-47); Hemoglobin 12.3 g/dL (12.0-15.0); Lymphocyte # 1.55 X10^3/ul (4.0); Mean Corp Hgb Conc 31.7 g/dL (32-36); Mean Corpuscular Volume 91.5 fL (81-99); Mean Platelet Vol. 10.2 fl (6.2-12.0); Monocyte# 0.51 X10^3/uL; Monocyte% 8.9 % (0-10); NRBC Flagged by Analyzer 0 % (0-5); Neutrophil # 3.45 X10^3/uL (2.7-7.7); Neutrophil % 60.1 % (47-70); Platelet Count 220 K/mm3 (150-450); RBC Distribution Width CV 14.9 % (11.6-14.6); RBC Distribution Width SD 49.2 fl (35.1-43.9); Red Blood Count 4.24 M/mm3 (4.2-5.4); White Blood Count 5.7 K/mm3 (4.4-11.0)
[2019-11-02 10:29] LABS: HIV - WCH Non-Reactive (Nonreactive); Vitamin B12 730 pg/mL (211-911)
[2019-11-02 10:39] LABS: ALB/GLOB Ratio 0.8 RATIO (0.9-2.4); AST(SGOT) 27 U/L (15-37); Alanine Aminotransfer ALT/SGPT 37 U/L (13-56); Albumin, Serum 3.4 g/dL (3.2-5.0); Alkaline Phosphatase 64 U/L (45-117); Anion Gap 4 (5-15); BUN 18 mg/dL (7-18); BUN/Creat Ratio 21.6 RATIO (10-20); Calcium,Total 8.9 mg/dL (8.5-10.1); Chloride 108 mmol/L (98-107); Creatinine, Serum 0.83 mg/dL (0.55-1.02); EST Glomerular Filtration Rate 73 mL/min (>60); Est Glom Filt Rate - Afr Amer 88 mL/min (>60); Globulin 4.2 g/dL (2.2-4.2); Glucose 85 mg/dL (74-106); Potassium 3.9 mmol/L (3.5-5.1); Protein, Total 7.6 g/dL (6.4-8.2); Rheumatoid Factor < 10.0 IU/mL (<15); Sodium Level 140 mmol/L (136-145)
[2019-11-03 14:07] LABS: RNP Ab <0.2 AI (0.0-0.9)
[2019-11-03 16:12] LABS: Smith Ab 0.2 AI (0.0-0.9)
[2019-11-05 16:08] LABS: Arsenic, Urine 24 H 11 ug/24 hr (0-50)
[2019-11-06 03:29] LABS: ARSENIC (TOTAL), URINE 15 ug/L (0-50); Arsenic (Inorganic), Urine 0 ug/L (0-19); Creatinine, Urine 0.93 g/L (0.30-3.00); Lead, Urine 0 ug/L (0-49); Mercury, Urine 0 ug/L (0-19)
== END | disposition home or self-care (01) ==
LOC: MTLAB 07:36
PROVIDERS: PCP Family Medicine; Referring Provider Psychiatry & Neurology Neurology; Visit Provider Psychiatry & Neurology Neurology
DX: G60.3 Idiopathic progressive neuropathy (principal); M06.4 Inflammatory polyarthropathy; R76.8 Other specified abnormal immunological findings in serum; M79.7 Fibromyalgia; Q66.71 Congenital pes cavus, right foot; G60.0 Hereditary motor and sensory neuropathy; H15.091 Other scleritis, right eye; H20.9 Unspecified iridocyclitis; K76.0 Fatty (change of) liver, not elsewhere classified; I10 Essential (primary) hypertension; E03.9 Hypothyroidism, unspecified; E78.5 Hyperlipidemia, unspecified; J30.9 Allergic rhinitis, unspecified; Z79.899 Other long term (current) drug therapy
CPT/HCPCS: 36415; 80053; 82175; 82570; 82607; 82746; 83655; 83825; 85025; 86235; 86431; 86703

== ENCOUNTER → 2020-02-18 | Outpatient (CLI) | payer MEDICARE, SELFPAY | END | disposition home or self-care (01) | LOC: BFHLAB 13:18 | PROVIDERS: PCP Family Medicine; Visit Provider Family Medicine | DX: N39.0 Urinary tract infection, site not specified (principal) | CPT/HCPCS: 87086; 87088; 87186 ==

== ENCOUNTER → 2020-02-24 | Outpatient (CLI) | payer MEDICARE, SELFPAY ==
[2020-02-24 12:44] LABS: T4 Free Direct 1.31 ng/dL (0.76-1.46); Thyroid Stim Hormone (TSH) 0.09 uIU/mL (0.358-3.74)
== END | disposition home or self-care (01) ==
LOC: BFHLAB 10:30
PROVIDERS: PCP Family Medicine; Visit Provider Family Medicine
DX: E03.9 Hypothyroidism, unspecified (principal)
CPT/HCPCS: 36415; 84439; 84443

== ENCOUNTER → 2020-03-10 | Outpatient (CLI) | payer MEDICARE, SELFPAY ==
--- NOTE | 2020-03-10 14:54 | BI_ITS ---
MAMMOGRAPHY - BILATERAL SCREENING REASON FOR EXAM: Female, 64 years old. Routine annual screening examination. PERTINENT HISTORY: Non-contributory. TECHNIQUE: Digital bilateral breast owen (3D mammographic acquisition) in the CC and MLO projections. 2-D mediolateral oblique (MLO) and craniocaudad (CC) views of both breasts were obtained. CAD: Full Field Digital Mammography with Computer Added Detection was performed. COMPARISON: Comparison is made with prior examination dated 11/13/2012. FINDINGS: Breast Composition: The breasts are heterogeneously dense, which may obscure small masses. There are no dominant masses or suspicious calcifications. Stable benign-appearing bilateral axillary lymph nodes. No other significant abnormalities are identified. There has been no significant change since the prior study. BI/SCREEN MAMM (CAD) W/OWEN BILAT IMPRESSION: Stable bilateral screening mammogram. Yearly follow-up mammogram recommended. (A) ASSESSMENT CATEGORY: BIRADS Category 2: Benign. A letter regarding these results will be sent to the patient by the facility within 30 days. Approximately 10% of breast cancers are not detected by mammography. A normal mammogram should not delay biopsy of a clinically suspicious abnormality. [id number] Electronically Signed: Isaias Langley, at 8:24 EDT , Service support ,
== END | disposition home or self-care (01) ==
LOC: OPBI 14:52
PROVIDERS: PCP Family Medicine; Referring Provider Family Medicine; Visit Provider Family Medicine
DX: Z12.31 Encounter for screening mammogram for malignant neoplasm of breast (principal)
CPT/HCPCS: 77063; 77067

== ENCOUNTER → 2020-07-21 11:17 | Outpatient (CLI) | payer MEDICARE, SELFPAY ==
[2020-07-21 16:13] LABS: T4 Free Direct 1.19 ng/dL (0.76-1.46); Thyroid Stim Hormone (TSH) 0.82 uIU/mL (0.358-3.74)
== END ==
PROVIDERS: PCP Family Medicine; Visit Provider Family Medicine
DX: E03.9 Hypothyroidism, unspecified (principal)
CPT/HCPCS: 36415; 84439; 84443

== ENCOUNTER → 2021-04-18 08:02 | Outpatient (CLI) | payer MEDICARE, SELFPAY ==
--- NOTE | 2021-04-18 08:07 | CT_ITS ---
STUDY: CT LEFT LOWER EXTREMITY WITHOUT CONTRAST REASON FOR EXAM: Varus deformity and osteoarthritis of the left knee, surgical planning. TECHNIQUE: Transaxial CT imaging of the knee was performed. Coronal and sagittal images were reformatted. Individualized dose optimization techniques were used for this CT. COMPARISON: None. FINDINGS: Knee: There are marginal osteophytes, subchondral cystic change/eburnation of the medial tibial plateau and joint space narrowing of the medial femorotibial compartment (coronal reconstructions 26-28). There are marginal osteophytes with preservation of joint space of the lateral femorotibial compartment. There are marginal osteophytes, subchondral cystic change and severe joint space narrowing of the patellofemoral compartment and lateral tilt of the patella (axial image 294). Normal proximal tibiofibular articulation. There is a small joint effusion and very small pockets of gas in the suprapatellar recess (sagittal reconstructions 37, 39) suggestive of recent aspiration/injection. The quadriceps tendon is grossly normal. The patellar tendon is grossly normal. Normal Hoffa''s fat pad. There is atrophy with fat replacement of the medial gastrocnemius muscle (sagittal reconstruction 25) and atrophy with partial fat replacement of the lateral gastrocnemius muscle (sagittal reconstruction 36). There is atrophy with partial fat replacement of the soleus muscle (axial image 501). There is an intra-articular body adjacent to the medial tibial plateau (coronal reconstructions 29-32). Hip: Unremarkable left hip articulation. Ankle: Unremarkable tibiotalar, posterior subtalar, talonavicular and calcaneocuboid articulations. There is a small ossicle adjacent to the medial malleolus. CT/Extremity Lower without Contra IMPRESSION: Osteoarthritis of the left knee. Electronically Signed: Darryn Pérez MD at 14:59 EDT Tel , Service support ,
== END ==
PROVIDERS: Referring Provider Specialist; Visit Provider Specialist
DX: M21.162 Varus deformity, not elsewhere classified, left knee (principal)
CPT/HCPCS: 73700

== ENCOUNTER 2021-05-02 17:49 | Observation (INO) | payer MEDICARE, SELFPAY ==
--- NOTE | 2021-04-13 11:08 | EKG12_ITS ---
Test Reason : PREOP Blood Pressure : / mmHG Vent. Rate : 077 BPM Atrial Rate : 077 BPM P-R Int : 148 ms QRS Dur : 072 ms QT Int : 388 ms P-R-T Axes : 045 000 006 degrees QTc Int : 439 ms Normal sinus rhythm Normal ECG Confirmed by KENYA LAMA, ROMA ([id number]), editorial assistant CHARAN WILEY ([id number]) on 04/17/2021 7:49:24 AM Referred By: Francis Manning Confirmed By:ROMA ZAMBRANO MD
--- NOTE | 2021-04-13 11:15 | RAD_ITS ---
STUDY: XR Chest 2 Views 04/13/2021 11:20 AM REASON FOR EXAM: Female, 65 years old. CHEST PAIN PREOP COMPARISON: None TECHNIQUE: XR Chest 2 Views FINDINGS: There is no demonstrated pleural abnormality. Enlarged heart size. Normal mediastinum. Normal elena. Prominent appearing increased interstitial lung markings. Normal visualized pulmonary arteries. There is atherosclerotic calcification of the aortic arch with tortuosity. There are diffuse degenerative changes of the visualized thoracic spine. There is degenerative osteoarthritis of the bilateral shoulders. There is no demonstrated abnormality of the visualized soft tissue structures of the upper abdomen. RAD/Chest PA and Lateral IMPRESSION: There are no acute findings. Electronically Signed: King Og MD at 22:06 EDT , Service support ,
[2021-04-13 13:23] LABS: Absolute Lymphocyte Count 1.82 X10^3/uL (0.83-4.51); Absolute Neutrophil Count 2.8 X10^3/uL (2.0-7.7); Basophil# 0.04 X10^3/uL; Basophil% 0.7 % (0-1); Eosinophil# 0.17 X10^3/uL; Eosinophils% 3.1 % (0-5); Hematocrit 36.8 % (37-47); Hemoglobin 11.7 g/dL (12.0-15.0); Lymphocyte # 1.82 X10^3/ul (0.83-4.51); Lymphocyte % 33.3 % (19-41); Mean Corp Hgb Conc 31.8 g/dL (32-36); Mean Corpuscular Volume 91.3 fL (81-99); Mean Platelet Vol. 10.2 fl (6.2-12.0); NRBC Flagged by Analyzer 0 % (0-5); Neutrophil # 2.82 X10^3/uL (2.7-7.7); Neutrophil % 51.5 % (47-70); Platelet Count 258 K/mm3 (150-450); RBC Distribution Width CV 13.7 % (11.6-14.6); RBC Distribution Width SD 46.6 fl (35.1-43.9); Red Blood Count 4.03 M/mm3 (4.2-5.4); White Blood Count 5.5 K/mm3 (4.4-11.0)
[2021-04-13 13:32] LABS: International Normalized Ratio 0.9
[2021-04-13 13:33] LABS: Partial Thromboplast Time 28.4 Seconds (24.1-36.2)
[2021-04-13 13:54] LABS: Anion Gap 5 (5-15); BUN 26 mg/dL (7-18); BUN/Creat Ratio 28.1 RATIO (10-20); Calcium,Total 8.9 mg/dL (8.5-10.1); Chloride 108 mmol/L (98-107); Creatinine, Serum 0.93 mg/dL (0.55-1.02); EST Glomerular Filtration Rate 64 mL/min (>60); Est Glom Filt Rate - Afr Amer 78 mL/min (>60); Glucose 77 mg/dL (74-106); Potassium 4.1 mmol/L (3.5-5.1); Sodium Level 140 mmol/L (136-145)
[2021-04-13 13:56] LABS: AST(SGOT) 18 U/L (15-37); Alanine Aminotransfer ALT/SGPT 29 U/L (13-56); Albumin, Serum 3.4 g/dL (3.2-5.0); Alkaline Phosphatase 68 U/L (45-117); Bilirubin, Direct 0.08 mg/dL (0.00-0.30); Globulin 4.2 g/dL (2.2-4.2); Magnesium 2.2 mg/dL (1.6-2.6); Protein, Total 7.6 g/dL (6.4-8.2); Thyroid Stim Hormone (TSH) 1.37 uIU/mL (0.358-3.74)
[2021-05-02] VITALS (15 sets, daily range): BP systolic 118–156; BP diastolic 64–95; PULSE 66–85; RESP 16–18; TEMP 36.1–36.6; O2SAT 94–100; BMI 27.1
--- NOTE | 2021-05-02 06:49 | PCM.OPRPT ---
Report of Operation Date of Procedure: 05/02/21 Pre-Operative Diagnosis: Left knee primary osteoarthritis Post-Operative Diagnosis: Left knee primary osteoarthritis Surgery/Procedure Performed:: Left knee minimally invasive robotic assisted total knee replacement Description of Surgical Findings:: Stable knee with good patella tracking Surgeon: Francis Manning international banker: Phoebe Sahu Type of Anesthesia: Spinal Anesthesiologist: Garrick Torres Special Medications: 2 g Ancef, 1 g TXA at incision, 1 g TXA closure, 10 mg Decadron, joint cocktail (5 mg Duramorph, 30 mL of 0.5% Ropivicaine, 1000 units of epinephrine, 30 mg of Toradol) Specimen's removed: Bony cuts Estimated Blood Loss (mL): 50 Fluids Replaced: 1500 mL crystalloid Description of Procedure: Implants used: 1. [place] size 2 triathlon cruciate retaining distal femoral press-fit component 2. Trice size 2 press-fit tritanium tibial baseplate 3. [place] X3 12 mm CS polyethylene 4. Trice X3 27 mm asymmetric patella Brief history operative indications: 65-year-old f with history of left knee osteoarthritis with radiographic findings with loss of joint space, osteophyte formation and subchondral sclerosis. Failed conservative measures as mentioned in the H&P. Discussion of total knee arthroplasty as well as risk and benefits were discussed the patient including but not limited to blood loss, DVTs, PEs, neurovascular damage, general risk of anesthesia including loss of life, and stiffness or instability were discussed with patient. Patient demonstrated understanding and was able to sign informed consent. Procedure: On the date of procedure patient's left lower extremity was marked in the preoperative area. The patient was then taken back to the operating room where the patient was placed on the table in the supine position. All bony prominences were identified a well-padded. Anesthesia assumed control of the C-spine and airway and remained controlled throughout the remainder of the procedure. A tourniquet was placed on the left upper thigh and the leg was prepped in a sterile fashion. The surgeon then scrubbed at this time .Upon reentering the room left lower extremity was draped in a standard orthopedic fashion. A timeout was then called and everyone agreed upon the side, the site, the procedure to be performed, patient's identity and antibiotics given. Esmarch bandage was used to exsanguinate the extremity and the tourniquet was placed up to 250 mmHg with the knee in flexion. A midline skin incision was made and sharp dissection was taken down through skin subcutaneous tissue and fat. The standard medial parapatellar incision was made and the patella was subluxed laterally. An Appropriate deep MCL release was done and the fat pad was resected. Our attention was then directed to the patella. The patella was everted and a flat resection was made. The knee was then flexed up in 2 femoral pins were placed inside the incision and 2 tibial pins were placed outside the incision in the medial tibia bicortically. Once this was completed the 2 checkpoints in the femur and tibia were placed. Knee was then flexed up and the bony landmarks were registered. Once this was completed knee was taken through range of motion and manually stressed allowing us to a plan for an appropriate tibial cut. The robotic arm was brought into the field sterilely and checkpoint and saw were registered. Based on the patient's deformity the tibial cut was made in 1 degree of varus. At this time the tensioner was then placed in the joint and ligament tension was checked at 90 degrees and full extension. Based on the patient's ligamentous tension appropriate adjustments were made to the operative plan and ligament releases were done. Once we were happy with our operative plan with balanced flexion and extension gaps our attention was directed to the femur. The robot was brought into the field sterilely and registered. Posterior condylar cuts, anterior chamfer cuts and anterior cuts were appropriately made for a size 2 femur. When these were completed the saws were switched out in the distal femoral and posterior chamfer cuts were made. Protecting the soft tissue throughout this time. A size 2 tibial base plate was selected. the knee was flexed to 90 degrees and the soft tissues and posterior osteophytes were removed from the joint. 40 cc of the periarticular injection was injected into the posterior medial corner of the joint. The appropriate trials were then placed on the femur and tibia. A trial polyethylene was trialed to ensure proper balancing and stability of the knee. The appropriate tibial internal rotation was then marked with a bovie. Our attention was then directed to the patella. The lug holes were drilled and the patella trial was placed. Patellar tracking was checked and deemed appropriate. Once we were happy lug holes were drilled for the femur and trial components were removed. the tibia was subluxed and pinned into place and the keel was punched and drilled appropriately. Final components were verified and opened, and cement was mixed in a vacuum. [employer] Simplex cement was used. The wound was copiously irrigated with normal saline. When the cement was ready the components were impacted into place starting with the tibia, femur and finally cementing the patella. The trial poly component was placed and the knee was placed in full extension. All excess cement was removed in the process. Once the cement had cured the tracking, alignment and balance were verified and a size 12 mm CS polyethylene component was placed. Once the final components were placed a 3-minute dilute Betadine lavage was performed followed by an Irrisept lavage was performed and the wound was copiously irrigated with normal saline solution and the periarticular injection was given. The wound was closed in a layer garner fashion using #1 vicryl interrupted sutures for the arthrotomy, 2-0 interrupted Vicryl suture for the subcuticular layer and cathy for final skin closure. A sterile compressive dressing was then placed. The patient was then awakened from anesthesia, [place] and transferred to the PACU for recovery. Post op plan DVT ppx: ASA 81mg BID, thigh high compression stockings Follow up: in office in 2 weeks for wound check PT: to start POD #0 at hospital, outpatient PT should be arranged. My physician assistant tennis professional was a vital part of this case. He was important in appropriate retraction during the case, and protection of soft tissues during bony cuts. His intimate knowledge of the case and my steps aided in safe and expedient completion of the procedure as well as appropriate position of the leg during the case. He was also vital in assisting with closure under my direct supervision. Due to the complexity of this case robotic arm was used to assist in the surgery to improve accuracy and clinical outcomes. Complications No intraoperative complications Admit VTE Documentation VTE Present on Admission: No VTE Mechan Device Prophylaxis: SCD's and Thigh High NELLY Hose VTE Pharm Prophylaxis ordered?: Yes
[2021-05-02] MEDS: Celecoxib 200 MG Capsule 400 MG PO (11:29)
[2021-05-02] MEDS: Gabapentin 600 MG Tablet PO ×2 (11:29→22:38)
[2021-05-02] MEDS: Acetaminophen 500 MG Tablet 1000 MG PO ×2 (11:29→22:43)
[2021-05-02 12:06] LABS: Bedside Glucose 77 mg/dL (70-110)
[2021-05-02] MEDS: Cefazolin 2 GM in 0.9% Normal Saline 100 ML IV (13:45)
[2021-05-02] MEDS: dexAMETHasone 10 MG/ML Vial IV (14:02)
[2021-05-02] MEDS: Lactated Ringers 1,000 ML 125 ML IV (15:00)
--- NOTE | 2021-05-02 15:58 | RAD_ITS ---
STUDY: X-RAY - LEFT KNEE REASON FOR EXAM: Female, 65 years old. post op -- AP and Lateral xray of operative knee in PACU TECHNIQUE: 2 view(s) of the knee. COMPARISON: None. FINDINGS: Newly placed tricompartmental hardware is present demonstrating good bony contact and alignment. The tibial stem is noncemented. Tract sidhu are seen in the undersurface of the patella due to placement of a radiolucent prosthetic component. There are expected postoperative changes in the soft tissues and joint including gas, fluid, and swelling. Multiple overlying skin cathy are present. RAD/Knee 1 or 2 Views IMPRESSION: Status post left knee prosthesis. Electronically Signed: Vaughn Rg MD at 17:09 EDT , Service support ,
[2021-05-02] MEDS: Lactated Ringers 1,000 ML 999 ML IV (16:00)
--- NOTE | 2021-05-02 19:14 | PCM.PN.HOSP ---
Subjective Subjective Patient presents today for postop after left total knee arthroplasty. Feels fine at present. Objective Data Objective Data Vital Signs: Vital Signs Temp Pulse Resp BP Pulse Ox 36.5 C L 66 18 146/80 H 94 05/02/21 18:58 05/02/21 18:58 05/02/21 18:58 05/02/21 18:58 05/02/21 18:58 Oxygen Flow Rate (L/min) 4 Oxygen Delivery Method Room Air Weight: 71.9 kg Body Mass Index (BMI) 27.1 Intake & Output: Intake and Output for Last 24 Hours 04/30/21 05/01/21 05/02/21 23:59 23:59 23:59 Intake Total 1434.5 / 1434.5 Balance 1434.5 / 1434.5 Lab / Micro Data Result Diagrams: 04/13/21 11:28 04/13/21 11:28 Labs: Laboratory Results - last 24 hr 05/02/21 11:50: POC Glucose 77 Micro: Microbiology 05/01/21 09:00 Interface Orders SARS-CoV-2 Antigen (Rapid) - Final 04/13/21 11:28 Swab (Method) Nasal Screen MRSA/MSSA - Final 04/13/21 11:15 Interface Orders SARS-CoV-2 Antigen (Rapid) - Final Radiography Diagnostic Testing: Radiology Impression Knee X-Ray 05/02/21 15:58 IMPRESSION: Status post left knee prosthesis. Electronically Signed: Vaughn Rg MD at 17:09 EDT , Service support , Physical Exam Const alert and no apparent distress Resp normal respiratory effort, no retractions, no use of accessory muscles and clear to auscultation bilaterally Cardio regular rate, regular rhythm, S1 normal heart sound and S2 normal heart sound GI normal to inspection, nondistended, normoactive bowel sounds, soft to palpation, non-tender, non-distended and hepatosplenomegaly Extremity normal to inspection Assessment & Plan Assessment/Plan (1) Status post total left knee replacement: PLAN: 1. Status post left total knee arthroplasty Management per orthopedics 2. Hypothyroidism Continue with Synthroid 3. Qojbfzm-Mldwk-Gvlcn On gabapentin 4. VTE prophylaxis Per orthopedics Twice daily aspirin Thank you for the consult. Patient medically stable. The hospital service will follow peripherally. Please do not hesitate to call for questions. Charges/Coding Visit Charges Inpatient E&M: 57759 Subs Hosp L2
[2021-05-02] MEDS: Senna/Docusate Sodium 1 Tablet 2 TABLET PO (22:38)
[2021-05-02] MEDS: Aspirin 81 MG TAB.CHEW PO (22:38)
[2021-05-02] MEDS: Pantoprazole Sodium 40 MG Tablet PO (22:39)
--- NOTE | 2021-05-02 22:59 | NURSING ---
pandemic documentation
[2021-05-03 00:20] VITALS: BP 124/70; PULSE 69; RESP 16; TEMP 36.6; O2SAT 98
[2021-05-03 06:00] VITALS: BP 122/74; PULSE 60; RESP 16; TEMP 36.3; O2SAT 97
[2021-05-03] MEDS: Acetaminophen 500 MG Tablet 1000 MG PO ×2 (06:03→14:46)
[2021-05-03] MEDS: Levothyroxine 112 MCG Tablet PO (06:03)
[2021-05-03 06:06] LABS: Hematocrit 29.9 % (37-47); Mean Corp Hgb Conc 33.4 g/dL (32-36); Mean Corpuscular Hgb 29.9 pg (27.0-32.0); Mean Corpuscular Volume 89.5 fL (81-99); Mean Platelet Vol. 9.6 fl (6.2-12.0); Platelet Count 202 K/mm3 (150-450); RBC Distribution Width CV 13.8 % (11.6-14.6); RBC Distribution Width SD 45.1 fl (35.1-43.9); Red Blood Count 3.34 M/mm3 (4.2-5.4); White Blood Count 10.1 K/mm3 (4.4-11.0)
[2021-05-03 06:44] LABS: Anion Gap 3 (5-15); BUN 17 mg/dL (7-18); BUN/Creat Ratio 22.5 RATIO (10-20); Calcium,Total 8.6 mg/dL (8.5-10.1); Chloride 111 mmol/L (98-107); Creatinine, Serum 0.76 mg/dL (0.55-1.02); EST Glomerular Filtration Rate 81 mL/min (>60); Est Glom Filt Rate - Afr Amer 98 mL/min (>60); Estimated Creatinine Clearance 47.14 ml/min; Glucose 111 mg/dL (74-106); Potassium 4.3 mmol/L (3.5-5.1); Sodium Level 140 mmol/L (136-145)
--- NOTE | 2021-05-03 07:15 | PCM.PN.HOSP ---
Subjective Subjective Patient denies cardiac or pulmonary disease. Has hypertension, hypothyroidism, short course moderate disease, dyslipidemia, restless leg syndrome and fibromyalgia. Objective Data Objective Data Vital Signs: Vital Signs Temp Pulse Resp BP Pulse Ox 97.4 F L 60 16 122/74 H 97 05/03/21 06:00 05/03/21 06:00 05/03/21 06:00 05/03/21 06:00 05/03/21 06:00 Oxygen Flow Rate (L/min) 2 Oxygen Delivery Method Room Air Weight: 158 lb Body Mass Index (BMI) 27.1 Intake & Output: Intake and Output for Last 24 Hours 05/01/21 05/02/21 05/03/21 23:59 23:59 23:59 Intake Total 1434.5 / 1434.5 1000 / 1000 Balance 1434.5 / 1434.5 1000 / 1000 Lab / Micro Data Result Diagrams: 05/03/21 05:50 05/03/21 05:50 Labs: Laboratory Results - last 24 hr 05/02/21 11:50: POC Glucose 77 05/03/21 05:50: WBC 10.1, RBC 3.34 L, Hgb 10.0 L, Hct 29.9 L, MCV 89.5, MCH 29.9, MCHC 33.4, RDW Std Deviation 45.1 H, RDW Coeff of Myra 13.8, Plt Count 202, MPV 9.6 05/03/21 05:50: Sodium 140, Potassium 4.3, Chloride 111 H, Carbon Dioxide 26.0, Anion Gap 3 L, BUN 17, Creatinine 0.76, Estim Creat Clear Calc 47.14, Est GFR (MDRD) Af Amer 98, Est GFR (MDRD) Non-Af 81, BUN/Creatinine Ratio 22.5 H, Glucose 111 H, Calcium 8.6 Micro: Microbiology 05/01/21 09:00 Interface Orders SARS-CoV-2 Antigen (Rapid) - Final 04/13/21 11:28 Swab (Method) Nasal Screen MRSA/MSSA - Final 04/13/21 11:15 Interface Orders SARS-CoV-2 Antigen (Rapid) - Final Radiography Diagnostic Testing: Radiology Impression Knee X-Ray 05/02/21 15:58 IMPRESSION: Status post left knee prosthesis. Electronically Signed: Vaughn Rg MD at 17:09 EDT , Service support , Physical Exam Narrative Had right TKR in the past. This time had left TKR. Surgical dressing is dry. No personal or family history of DVT or PE General: Alert, Oriented x3, Cooperative HEENT: Atraumatic, PERRLA, EOMI, Normocephalic Oral: No Gingival or Mucosal Lesions/ Ulcerations Neck: Supple, No JVD, Negative Carotid Bruits Lungs: Air entry equal in bilateral lung bases. No crepitation/rhonchi Cardiovascular: Regular rate, Regular Rhythm, Normal S1, Normal S2, No murmurs Abdomen: Bowel Sounds Present, Soft, Non Tender, Non-Distended : No renal angle tenderness. No suprapubic tenderness. Extremities: No edema, Capillary Refill Less than 3 Seconds Skin: No rashes, No breakdown Musculoskeletal: Left TKR. No hematoma. Mild postsurgical inflammatory swelling. Neurological: Cranial nerves II-XII grossly intact, DTR 2+/4 and Symmetrical, Neuro grossly intact Psych/Mental Status: Normal Affect, Appropriate. Assessment & Plan Assessment/Plan (1) Status post total left knee replacement: PLAN: 1. Status post left total knee arthroplasty Management per orthopedics. PT and OT. Patient medically stable for discharge. 2. Hypothyroidism Continue with Synthroid 3. Udghkwz-Yfrkz-Mytbp On gabapentin 4. VTE prophylaxis Per orthopedics. Twice daily aspirin. Recommends NOAC for 35 days as post TKR DVT prophylaxis. Thank you for the consult Charges/Coding Visit Charges Inpatient E&M: 81271 Subs Hosp L2
[2021-05-03] MEDS: Ensure Surgery 237 ML LIQUID PO (08:30)
[2021-05-03 09:14] VITALS: BP 128/68; PULSE 68; RESP 18; TEMP 36.3; O2SAT 96
[2021-05-03] MEDS: oxyCODONE 5 MG Tablet 2.5 MG PO (09:44)
[2021-05-03] MEDS: Aspirin 81 MG TAB.CHEW PO (09:44)
[2021-05-03] MEDS: Montelukast 10 MG Tablet PO (09:45)
[2021-05-03] MEDS: Pantoprazole Sodium 40 MG Tablet PO (09:45)
[2021-05-03] MEDS: Senna/Docusate Sodium 1 Tablet 2 TABLET PO (09:45)
[2021-05-03] MEDS: Gabapentin 600 MG Tablet PO (09:45)
[2021-05-03] MEDS: Cholecalciferol (VIT D3) 25 MCG TABLET (1,000 UNITS) 125 MCG PO (09:45)
[2021-05-03] MEDS: Multivitamins,Ther W-Minerals Tablet 1 TABLET PO (09:45)
[2021-05-03] MEDS: Famotidine 20 MG Tablet PO (09:45)
--- NOTE | 2021-05-03 09:45 | NURSING ---
see EMAR pain assessment
[2021-05-03] MEDS: Lisinopril 20 MG Tablet PO (09:46)
--- NOTE | 2021-05-03 11:00 | CHAPLAIN ---
Type of Pastoral Visit _x__ Initial Visit ___ Follow-up Visit ___ On-call Visit ___ General Patient Visit ___ Spiritual Assessment ___ Family Conference ___ Bereavement ___ Rapid Response ___ Code Blue ___ Other (describe below) Pastoral Care Referral From _x__ Patient ___ Family ___ Nurse ___ Physician ___ Laundry Folder ___ Fuels Sales Representative ___ Other (describe below) Sacrament/Intervention _x__ Active listening ___ Anointing ___ Yarsani ___ Bereavement ___ Communion ___ Kae exploration ___ _x__ Life review _x__ Prayer ___ Reconciliation ___ Sacrament of Sick ___ Supportive presence ___ Wedding ___ Other (describe below) Pastoral Comments
--- NOTE | 2021-05-03 11:20 | CASEMGMT ---
RN CM BRINE WELL OPERATOR CM to room to meet with patient for initial transition planning/care coordination assessment. SHARON ROSALES introduced self and role at [facility]. Pt voices understanding and consents to assessment at this time. Pt sitting up in chair in room in no distress at this time. Pt is A/O at this time and answers all questions appropriately. Care providers, pharmacy, and demographics verified/updated at this time. PCP: HAILE Singh @ [facility] Specialists:Dr Manning--ortho, Dr Merrill--Construction Worker @ [facility]. Dr Cevallos--neurology @ [facility] Preferred Pharmacy: [facility] Retail Insurance: MCR A, B Prescription Benefit: None Living Will/HPOA: States does not have LW or HCPOA . Interested in more information and would like to talk with SW to complete paperwork. Provided information on advanced directives and given Social Service rac card with number to call if chooses in the future to utilize [facility] social work for advanced directive completion if SW unable to meet w/her prior to being discharged. Lyudmila CASTRO, made aware pt would like to do AD, if available prior to pt being discharged. LNOK: , Vikas. Sister, Sara Living Arrangements: Lives w/her in one-story home w/2-steps to enter. Independent w/ADL's and IADL's prior to surgery. supportive and able to help. Transportation: Pt states drives self and states no transportation concerns at this time. also drives and will be taking pt home @ d/c. DME: States has the following DME: toilet rails, shower chair, cane, walker. Pt states no need for further DME at this time. HHC/SNF: No hx of either. Pt states plans to go to OP therapy @ [facility]. 1st appt is already scheduled for 05/08. Pt's sister or holiness friends will assist w/taking her to appts. Pt states she had an appt scheduled @ [facility], but is calling to cancel it today, as [facility] is closer for her. Pt wishes to return home w/OP therapy and states has no concerns with going home at time of discharge. CM to follow for any discharge planning/needs. Pt voices no further concerns/needs at this time. Advised pt to ask for CM if any further questions/concerns/needs arise. Voices understanding. NAVA form explained re: Observation status for treatment of left total knee replacement. Explained hospitalization will be paid per her insurance policy for Outpatient billing and condition will continue to be evaluated for Inpt necessity. Also let pt know that [facility] sends paper in the billing packet with their phone number if questions arise. Discussed Pharmacy section of NAVA form and self administered medication guideline. Pt verbalizes understanding and does not have further questions. Form signed, copy made and placed in chart, and original given to pt. PLAN: Home w/family support, OP PT @ [facility], and discharge plans in place. Noah FORD RN CM
--- NOTE | 2021-05-03 12:27 | PCM.PN.ORT ---
Subjective Subjective Patient is s/p left sided total knee arthroplasty with Dr. Manning. Patient resting comfortably in bed. Rates pain 3/ 10 at rest. With movement 7/10. States taking Tylenol and ice help to relieve pain. Patient has been up with therapy. Walking with the assit of a walker. Afebrile, no chest pain, shortness of breath, negative calf pain/ erythema, and no other signs of DVT. Dressing intact X3 since surgery Objective Data Objective Data Vital Signs: Vital Signs Temp Pulse Resp BP Pulse Ox 97.3 F L 68 18 128/68 H 96 05/03/21 09:14 05/03/21 09:14 05/03/21 09:14 05/03/21 09:14 05/03/21 09:14 Oxygen Flow Rate (L/min) 2 Oxygen Delivery Method Room Air Weight: 71.668 kg Body Mass Index (BMI) 27.1 Intake & Output: Intake and Output for Last 24 Hours 05/01/21 05/02/21 05/03/21 23:59 23:59 23:59 Intake Total 1434.5 / 1434.5 1000 / 1000 Balance 1434.5 / 1434.5 1000 / 1000 Lab / Micro Data Result Diagrams: 05/03/21 05:50 05/03/21 05:50 Labs: Laboratory Results - last 24 hr 05/03/21 05:50: WBC 10.1, RBC 3.34 L, Hgb 10.0 L, Hct 29.9 L, MCV 89.5, MCH 29.9, MCHC 33.4, RDW Std Deviation 45.1 H, RDW Coeff of Myra 13.8, Plt Count 202, MPV 9.6 05/03/21 05:50: Sodium 140, Potassium 4.3, Chloride 111 H, Carbon Dioxide 26.0, Anion Gap 3 L, BUN 17, Creatinine 0.76, Estim Creat Clear Calc 47.14, Est GFR (MDRD) Af Amer 98, Est GFR (MDRD) Non-Af 81, BUN/Creatinine Ratio 22.5 H, Glucose 111 H, Calcium 8.6 Micro: Microbiology 05/01/21 09:00 Interface Orders SARS-CoV-2 Antigen (Rapid) - Final 04/13/21 11:28 Swab (Method) Nasal Screen MRSA/MSSA - Final 04/13/21 11:15 Interface Orders SARS-CoV-2 Antigen (Rapid) - Final Radiography Diagnostic Testing: Radiology Impression Knee X-Ray 05/02/21 15:58 IMPRESSION: Status post left knee prosthesis. Electronically Signed: Vaughn Rg MD at 17:09 EDT , Service support , Physical Exam Narrative Patient resting comfortably sitting in chair No signs of acute distress Satting well on room air Limb is warm to touch, Sensation intact throughout entire left lower extremity, including saphenous, sural, superficial and deep peroneal, and tibial distribution. DP/PT pulses bounding. Dorsiflexion plantarflexion 5/5. Patient able to wiggle toes. Dressing has been changed x3 times since surgery. Drainage is sanguinous at the most inferior aspect of the incision. On my examination there is a clear dry dressing intact to the midline incision without any drainage. She was just up with the physical therapy and walking around the unit. Calf nontender to palpation, no erythema, no edema. Negative Homans Assessment & Plan Assessment/Plan (1) Status post total left knee replacement: PLAN: Patient is status post left total knee arthroplasty with Dr. Manning on 05/02/2021 1. Will continue PT today . Patient is weightbearing as tolerated 2. plan for discharge this afternoon following PT 3. Patient will follow up for post op appointment on 05/18 4. Patient has outpatient PT appointment on 05/04 6. H/H 04/27.9: post operavtive anemia secondary to acute blood loss intraoperatively. Patient is asymptomatic at this time. No intraoperative complications. will continue to monitor. no acute interventions. 7. DVT prophylaxis : ASA 81 twice daily x4 weeks 8. Pain control: patient instructed to take tylenol 500mg 2 tablets TID. and ibuprofen every 4-6 hours only as needed for pain control. 9. Patient does not want postoperative narcotics or meloxicam as it gives her significant GI upset. She was agreeable to Tylenol and ibuprofen postoperatively for pain control. 10. On my evaluation patient's dressing over midline incision is clear without drainage. It was changed x3 times since surgery. Patient was walking around the unit prior to my examination. And continue to change dressing as needed. Overall the drainage is slowing down.
--- NOTE | 2021-05-03 12:35 | PCM.DC ---
Discharge Instructions Diet Discharge Diet: No restrictions Dressing / Incision Call your doctor if your incision/area has: Continuous Slow Oozing, Sudden Increased Bleeding, Increased Pain/ Swelling, Increased Redness, Foul Smelling Discharge and Swelling at the incision site Call your doctor if you observe: Fever of 101 or Higher, Numbness or Tingling, Shortness of breath, Dizziness, Chest pain and Calf discomfort Remove Dressing in: 5 days Cleanse incision/area with: Soap & Water Follow Up Care Test Results: Test results from this visit will be discussed in further detail at your follow-up appointment, if applicable. Discharge Plan Admission Admit Date/Time: 05/02/21 17:49 Attending Provider: Francis Manning Consulting Providers: Manolo Samayoa Discharge Orders/Prescriptions Prescriptions: New acetaminophen 500 mg Tablet 1,000 mg PO Q8 Qty: 90 RF: 0 aspirin 81 mg Tablet,Chewable 81 mg PO BIDCM 28 Days Qty: 56 RF: 0 Continued pantoprazole 40 mg tablet,delayed release (DR/EC) 40 mg PO BID Qty: 60 RF: 1 pravastatin 40 MG tablet 40 mg PO QODAY RF: 0 levothyroxine 112 MCG tablet 112 mcg PO DAILY RF: 0 multivitamin with folic acid 1 TABLET tablet 1 tab PO DAILY RF: 0 Dominique Allergy 1 tab PO DAILY RF: 0 lisinopril 20 MG tablet 20 mg PO DAILY RF: 0 gabapentin 300 MG capsule 600 mg PO BID RF: 0 montelukast 10 MG tablet 10 mg PO DAILY RF: 0 selenium 200 mcg Tablet 400 mcg PO DAILY RF: 0 prednisolone acetate 1 % Drops,Suspension 1 drp EACH EYE PRN PRN (Reason: EYES) RF: 0 ibuprofen 200 mg Tablet 200 mg PO DAILY RF: 0 zinc 50 mg Tablet 50 mg PO DAILY RF: 0 coenzyme Q10 [CoQ-10] 100 mg Capsule 100 mg PO DAILY RF: 0 cholecalciferol (vitamin D3) [Vitamin D3] 125 mcg (5,000 unit) Tablet 125 mcg PO DAILY RF: 0 Sathish-Mag 200 mg calcium- 100 mg Tablet,Chewable 2 tab PO DAILY RF: 0 naproxen sodium [Aleve] 220 mg Capsule 440 mg PO DAILY RF: 0 duloxetine 60 mg Capsule,Delayed Release(Dr/Ec) 60 mg PO DAILY RF: 0 Held celecoxib 200 MG capsule 200 mg PO DAILY RF: 0 Hold Instructions: Resume on 05/24/21. Referrals / Follow Up: [facility] [Other]
[2021-05-03 13:30] VITALS: BP 125/66; PULSE 67; RESP 18; TEMP 36.4; O2SAT 97
--- NOTE | 2021-05-03 13:36 | PCS.PANDOC ---
PANDEMIC DOCUMENTATION INITIATED: Date: 02/12/2021 Time: 190
--- NOTE | 2021-05-03 15:15 | CASEMGMT ---
Social Work SW assisted pt in completing living will and health care POA. Pt naming her Vikas Gamboa as HCPOA. Originals given to pt and copys placed on pt chart. YOLANDA Harvey
== END 2021-05-03 15:19 | disposition home or self-care (01) ==
LOC: SDC 17:52 → MS2 17:52
PROVIDERS: Anesthesiology; Admitting Provider Specialist; Referring Provider Specialist; Visit Provider Specialist
PROC: 0SRD0JZ Replacement of Left Knee Joint with Synthetic Substitute, Open Approach (ICD-10-PCS; CPT 27447; principal; 2021-05-02 13:00)
DX: M17.12 Unilateral primary osteoarthritis, left knee (principal); G60.0 Hereditary motor and sensory neuropathy; I10 Essential (primary) hypertension; K21.9 Gastro-esophageal reflux disease without esophagitis; E78.5 Hyperlipidemia, unspecified; E06.3 Autoimmune thyroiditis; G25.81 Restless legs syndrome; R23.8 Other skin changes; R13.10 Dysphagia, unspecified; R07.9 Chest pain, unspecified; M79.7 Fibromyalgia; Z79.899 Other long term (current) drug therapy; Z79.890 Hormone replacement therapy; Z87.898 Personal history of other specified conditions
CPT/HCPCS: 01402; 27447; 64447; S2900; 36415; 71046; 73560; 80048; 80076; 82962; 83735; 84443; 85025; 85027; 85610; 85730; 87081; 87426; 93005; 97162; 97166; 97530; 99218; 99251; C1776; C9803; J7120; G0378; G0463

== ENCOUNTER 2021-08-16 13:31 | Outpatient (CLI) | payer MEDICARE, OTHER, SELFPAY ==
--- NOTE | 2021-08-16 13:37 | RAD_ITS ---
STUDY: BONE LENGTH STUDIES. REASON FOR EXAM: Female, 65 years old. UNEQUAL LIMB LENGTH TECHNIQUE: Multiple frontal images of the lower extremities were obtained. COMPARISON: None. FINDINGS: The patient is status post bilateral total knee replacements. Healed fracture of the proximal tibial shaft. There is no evidence of leg length discrepancy. RAD/Bone Length IMPRESSION: No evidence of leg length discrepancy. Electronically Signed: Isaias Langley MD at 14:26 EST ,
== END 2021-08-16 23:59 | disposition home or self-care (01) ==
LOC: RAD 13:34
PROVIDERS: Referring Provider Specialist; Visit Provider Specialist
DX: M21.752 Unequal limb length (acquired), left femur (principal)
CPT/HCPCS: 77073

== ENCOUNTER → 2022-02-22 | Outpatient (CLI) | payer MEDICARE, OTHER, SELFPAY ==
--- NOTE | 2022-02-22 13:55 | CT_ITS ---
CT of the right knee without contrast INDICATION: Knee pain. COMPARISON: X-ray 02/16/2014 TECHNIQUE: Multiple thin section axial CT images the right knee were obtained without the administration intravenous contrast and filmed in soft tissue and bone windows. Furthermore, multiple sagittal and coronal reconstructions were performed. Dose limiting techniques were utilized. FINDINGS: No abnormal soft tissue mass, lymphadenopathy, fluid collection. Severe atrophy of the gastrocnemius muscle. No acute fracture or dislocation. No lytic or blastic lesions. The status post total knee arthroplasty. The prosthesis appears located. No ostial lysis to suggest loosening. Small joint effusion. CT/Extremity Lower without Contra IMPRESSION: Normal CT the right knee after total knee arthroplasty. Electronically Signed: Car Mon MD at 23:17 EDT ,
== END | disposition home or self-care (01) ==
LOC: CT 13:51
PROVIDERS: Referring Provider Specialist; Visit Provider Specialist
DX: M25.561 Pain in right knee (principal); Z96.651 Presence of right artificial knee joint
CPT/HCPCS: 73700

== ENCOUNTER → 2022-03-19 | Outpatient (CLI) | payer MEDICARE, OTHER, SELFPAY ==
[2022-03-19 10:12] LABS: Absolute Lymphocyte Count 1.35 X10^3/uL (0.83-4.51); Absolute Neutrophil Count 2.1 X10^3/uL (2.0-7.7); Basophil# 0.02 X10^3/uL; Basophil% 0.5 % (0-1); Eosinophil# 0.22 X10^3/uL; Eosinophils% 5.3 % (0-5); Hematocrit 34.4 % (37-47); Hemoglobin 10.9 g/dL (12.0-15.0); Lymphocyte # 1.35 X10^3/ul (0.83-4.51); Lymphocyte % 32.5 % (19-41); Mean Corp Hgb Conc 31.7 g/dL (32-36); Mean Corpuscular Hgb 26.6 pg (27.0-32.0); Mean Corpuscular Volume 83.9 fL (81-99); Mean Platelet Vol. 11.3 fl (6.2-12.0); Monocyte# 0.43 X10^3/uL; Monocyte% 10.3 % (0-10); NRBC Flagged by Analyzer 0 % (0-5); Neutrophil # 2.13 X10^3/uL (2.7-7.7); Neutrophil % 51.2 % (47-70); Platelet Count 191 K/mm3 (150-450); RBC Distribution Width SD 51.8 fl (35.1-43.9); White Blood Count 4.2 K/mm3 (4.4-11.0)
[2022-03-19 10:14] LABS: Erythrocyte Sedimentation Rate 25 mm/hr (0-30)
== END | disposition home or self-care (01) ==
LOC: MTLAB 07:57
PROVIDERS: Referring Provider Specialist; Visit Provider Specialist
DX: Z96.651 Presence of right artificial knee joint (principal)
CPT/HCPCS: 36415; 85025; 85652; 86140

== ENCOUNTER → 2022-03-22 | Outpatient (CLI) | payer MEDICARE, OTHER, SELFPAY ==
[2022-03-22 12:44] LABS: RBC /Synovial Fluid 0.094 10^6/uL (0); Synovial Fld Mononuclear WBC # 0.189 10^3/ul; Synovial Fld Mononuclear WBC % 65.8 %; Synovial Fld Polynuclear WBC # 0.098 10^3/uL; Synovial Fld Polynuclear WBC % 34.2 %
[2022-03-22 12:49] LABS: AUTO B FLUID DILUENT BKGD CT WBC <0.1 RBC <0.01 (W<.1,R<.01); Source / Synovial Fluid RIGHT KNEE
[2022-03-22 12:50] LABS: Appearance /Synovial Fluid Cloudy (CLEAR); Color / Synovial Fluid Red (Pale Yellow)
[2022-03-22 13:18] LABS: Body Fluid QC Type(s) BF1Q; Lymph 50 %; Monocyte /Synovial Fluid 22 %; Neutrophil 22 % (0-25); Other Cell /Synovial Fluid 6 %
[2022-03-25 12:32] LABS: Pathologist Comment Reviewed
== END | disposition home or self-care (01) ==
LOC: LABSPEC 12:30
PROVIDERS: Referring Provider Specialist; Visit Provider Specialist
DX: T84.022A Instability of internal right knee prosthesis, initial encounter (principal); M25.461 Effusion, right knee; Z96.651 Presence of right artificial knee joint
CPT/HCPCS: 87015; 87070; 87075; 87101; 87116; 87205; 87206; 89050; 89051

== ENCOUNTER → 2022-07-05 | Outpatient (CLI) | payer MEDICARE, OTHER, SELFPAY ==
[2022-07-05 12:26] LABS: Absolute Lymphocyte Count 1.47 X10^3/uL (0.83-4.51); Basophil# 0.03 X10^3/uL; Basophil% 0.6 % (0-1); Eosinophil# 0.19 X10^3/uL; Eosinophils% 3.6 % (0-5); Hematocrit 34.8 % (37-47); Lymphocyte # 1.47 X10^3/ul (0.83-4.51); Lymphocyte % 27.5 % (19-41); Mean Corp Hgb Conc 31.6 g/dL (32-36); Mean Corpuscular Hgb 28.1 pg (27.0-32.0); Mean Corpuscular Volume 88.8 fL (81-99); Mean Platelet Vol. 10.5 fl (6.2-12.0); Monocyte# 0.62 X10^3/uL; Monocyte% 11.6 % (0-10); NRBC Flagged by Analyzer 0 % (0-5); Neutrophil # 3.03 X10^3/uL (2.7-7.7); Neutrophil % 56.5 % (47-70); Platelet Count 256 K/mm3 (150-450); RBC Distribution Width CV 16.8 % (11.6-14.6); RBC Distribution Width SD 54.9 fl (35.1-43.9); Red Blood Count 3.92 M/mm3 (4.2-5.4); White Blood Count 5.4 K/mm3 (4.4-11.0)
== END | disposition home or self-care (01) ==
LOC: MTLAB 10:05
DX: I10 Essential (primary) hypertension (principal); A41.9 Sepsis, unspecified organism
CPT/HCPCS: 36415; 85025; 87040

== ENCOUNTER → 2023-07-14 | Outpatient (CLI) | payer MEDICARE, OTHER, SELFPAY ==
--- OUTSIDE RECORDS SUMMARY | 2023-07-14 15:42 | XMS RPT_ITS | CCD ---
Author Name Unknown Address [address] [facility] [address] [place] [address] Organization [facility] Care Team Providers Care Fixing Carpenter Name Role Phone Unavailable Primary Care Provider Unavailabl e Singh INVESTIGATOR FRAUD.Nadine CHAMPAGNE Primary Care Provider [phone] NADINE SINGH APRN Primary Care Physician Angelina Fischer PT Unavailable Unavailable Singh INVESTIGATOR FRAUD.Nadine CHAMPAGNE Primary Care Provider [phone] JOAQUIM COLE MD Attending Unavailable SINGH INVESTIGATOR FRAUD, NADINE Primary Care Unavailable ALIX VAUGHN Attending Unavailable SINGH INVESTIGATOR FRAUD, NADINE Primary Care Unavailable ALIX VAUGHN Referring Unavailable JOAQUIM COLE MD Attending Unavailable SINGH INVESTIGATOR FRAUD, NADINE Primary Care Unavailable JOAQUIM COLE MD Admitting Unavailable SINGH NADINE LEAL Consulting Unavailable ANGELINA BURK Consulting Unavailable SINGH, NADNIE Referring Unavailable SINGH, NADINE Primary Care Unavailable SINGH, NADINE Referring Unavailable SINGH, NADINE Primary Care Unavailable SINGH, NADINE Referring Unavailable SINGH, NADINE Primary Care Unavailable SINGH, NADINE Referring Unavailable SINGH, NADINE Primary Care Unavailable NELDA CARLOS Referring Unavailabl e SINGH, NADINE Primary Care Unavailable TERRANCENELDA Referring Unavailabl e SINGH, NADINE Primary Care Unavailable Allergies Allergy Classification Reported Allergen(s) Allergy Type Date of Onset Reaction(s) Facility (5 sources) Acetaminophen; Translations: [ACETAMINOPHEN] Drug Allergy 9 [facility] (5 sources) Aloe vera preparation; Translations: [ALOE VERA] Drug Allergy 5 [facility] (8 sources) Coconut extract; Translations: [COCONUT] Drug Allergy 5 Other: See Comments, Shortness of Breath [facility] (8 sources) Erythromycin; Translations: [erythromycin] Drug Allergy 5 GI Upset [facility] (8 sources) HYDROmorphone; Translations: [hydromorphone] Drug Allergy 9 Mental Status Change [facility] (8 sources) Lanolin; Translations: [lanolin topical] Drug Allergy 9 [facility] (5 sources) Miconazole; Translations: [MICONAZOLE NITRATE] Drug Allergy 5 [facility] (8 sources) oxyCODONE; Translations: [oxycodone] Drug Allergy 9 [facility] (5 sources) Oxytocin; Translations: [OXYTOCIN] Drug Allergy 9 Other: See Comments [facility] (5 sources) Penicillins; Translations: [PENICILLINS] Drug Allergy 5 [facility] (8 sources) Sulfonamides (Antibiotic); Translations: [sulfa drugs] Drug Allergy 5 [facility] (5 sources) tioconazole; Translations: [TIOCONAZOLE] Drug Allergy 5 [facility] (8 sources) traMADol; Translations: [tramadol] Drug Allergy 9 Diarrhea [facility] (8 sources) vitamin B12; Translations: [cyanocobalamin] Drug Allergy 5 [facility] (5 sources) Wheat gluten extract; Translations: [GLUTEN] Drug Allergy 5 Other: See Comments [facility] (3 sources) Acetaminophen / oxyCODONE; Translations: [acetaminophen-ox ycodone] Drug Allergy Constipation, Dizziness, Confusion [facility] (3 sources) Gluten Food allergy constipation [facility] (3 sources) Miconazole; Translations: [miconazole topical] Drug Allergy [facility] (3 sources) Penicillin; Translations: [penicillins] Drug Allergy [facility] (3 sources) predniSONE; Translations: [prednisone] Drug Allergy Candidiasis (disorder) [facility] (3 sources) aloe vera topical; Translations: [aloe vera topical] Drug allergy hives [facility] Medications Current Medications Medication Drug Class(es) Dates Sig (Normalized) Sig (Original) acetaminophen 300 mg / codeine phosphate 30 mg oral tablet (1 source) Opioid Agonist Start: 05-08-2022 End: 05-15-2022 take 1-2 tablets by mouth every six hours as needed for pain acetaminophen-code ine 300 mg-30 mg oral tablet See Instructions, PRN as needed for pain, 1-2 tab(s) Oral q6hr, # 48 tab(s), 0 Refill(s), [facility]acy: [facility], Status post revision of total replacement of right knee, 162.6, cm, 05/07/22 14:11:00 EST, Height, 75.5 Start Date: 05/08/22 Stop Date: 05/15/22 Status: Ordered amitriptyline hydrochloride 25 mg oral tablet (6 sources) Tricyclic Antidepressant Start: 03-01-2022 End: 08-28-2022 amitriptyline 25 mg oral tablet Dose : 25 mg = 1 tab(s), Oral, qHS, 0 Refill(s) Start Date: 05/07/22 Status: Ordered Completed/Discontinued Medications Medication Drug Class(es) Dates Sig (Normalized) Sig (Original) aspirin 81 mg delayed release oral tablet (2 sources) Platelet Aggregation Inhibitor, Nonsteroidal Anti-inflammatory Drug Start: 05-08-2022 End: 06-07-2022 take 1 tablet by mouth twice daily aspirin 81 mg oral delayed release tablet Dose : 81 mg = 1 tab(s), Oral, BID, Take 81 mg aspirin twice daily with food for 4 weeks postoperatively for DVT prophylaxis, # 60 tab(s), 0 Refill(s), [facility]: [facility], 162.6, cm, 05/07/22 14:11:00 EST, Height Start Date: 05/08/22 Stop Date: 06/07/22 Status: Ordered gabapentin 300 mg oral capsule (4 sources) Anti-epileptic Agent Start: 05-10-2019 take 2 capsules by mouth twice daily gabapentin (NEURONTIN) 300 mg capsule Take 600 mg by mouth twice daily. 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; Translations: [Instability of internal right knee prosthesis, subsequent encounter] Episodic Disorders of lipid metabolism (1 source) Hyperlipidemia; Translations: [Hyperlipidemia, unspecified] Onset: 05-07-2022 Chronic Essential hypertension (1 source) Essential hypertension; Translations: [Essential (primary) hypertension] Onset: 05-07-2022 Chronic Immunizations and screening for infectious disease (1 source) Encounter for screening for other viral diseases; Translations: [Screening examination for poliomyelitis] Onset: 01-30-2023 Episodic Osteoarthritis (1 source) Osteoarthritis of first carpometacarpal joint of left hand; Translations: [Unilateral primary osteoarthritis of first carpometacarpal joint, left hand] Chronic Other connective tissue disease (2 sources) Artificial knee joint present; Translations: [Presence of right artificial knee joint] Onset: 05-07-2022 Chronic Other connective tissue disease (2 sources) Fibromyalgia; Translations: [Fibromyalgia] Onset: 05-07-2022 Episodic Other lower respiratory disease (1 source) Interstitial pulmonary disease, unspecified; Translations: [Interstitial pulmonary disease, unspecified] Onset: 01-30-2023 Chronic Other nervous system disorders (4 sources) Hereditary motor and sensory neuropathy; Translations: [Hereditary motor and sensory neuropathy] Onset: 04-19-2021 04-19-2021 Chronic Rheumatoid arthritis and related disease (2 sources) Rheumatoid arthritis without rheumatoid factor, multiple sites; Translations: [Rheumatoid arthritis without rheumatoid factor, multiple sites] Onset: 01-30-2023 Chronic Thyroid disorders (2 sources) Hypothyroidism; Translations: [Hypothyroidism, unspecified] Onset: 05-07-2022 Chronic Unclassified (2 sources) History of revision of right total knee arthroplasty 05-07-2022 Unclassified (1 source) post menopausal Onset: 03-31-2023 Results Test Name Value Interpretation Reference Range Facil ity Vital Signs Date Time Vital Sign Value Performing Clinician Facility 05-08-2022 12:30-0500 Body temperature 98.06 [degF] DR JOAQUIM COLE MD [facility] 05-08-2022 12:30-0500 Diastolic Blood Pressure Non-Invasive [address] JOAQUIM COLE MD [facility] 05-08-2022 12:30-0500 Heart rate 81 /min DR JOAQUIM COLE MD [facility] 05-08-2022 12:30-0500 Reason For Taking VItal Signs DR JOAQUIM COLE MD [facility] 05-08-2022 12:30-0500 Respiratory rate 16 /min DR JOAQUIM COLE MD [facility] 05-08-2022 12:30-0500 Systolic Blood Pressure Non-Invasive [address] JOAQUIM COLE MD [facility] 05-08-2022 07:38-0500 Body temperature 97.7 [degF] DR JOAQUIM COLE MD [facility] 05-08-2022 07:38-0500 Diastolic blood pressure 75 mm[Hg] DR JOAQUIM COLE MD [facility] 05-08-2022 07:38-0500 Heart rate 65 /min DR JOAQUIM COLE MD [facility] 05-08-2022 07:38-0500 Reason For Taking VItal Signs DR JOAQUIM COLE MD [facility] 05-08-2022 07:38-0500 Respiratory rate 16 /min DR JOAQUIM COLE MD [facility] 05-08-2022 07:38-0500 Systolic blood pressure 123 mm[Hg] DR JOAQUIM COLE MD [facility] 05-08-2022 05:45-0500 Body temperature 97.88 [degF] DR JOAQUIM COLE MD [facility] 05-08-2022 05:45-0500 Diastolic blood pressure 87 mm[Hg] DR JOAQUIM COLE MD [facility] 05-08-2022 05:45-0500 Heart rate 70 /min DR JOAQUIM COLE MD [facility] 05-08-2022 05:45-0500 Respiratory rate 16 /min DR JOAQUIM COLE MD [facility] 05-08-2022 05:45-0500 Systolic blood pressure 114 mm[Hg] DR JOAQUIM COLE MD [facility] 05-08-2022 03:31-0500 Diastolic blood pressure 74 mm[Hg] DR JOAQUIM COLE MD [facility] 05-08-2022 03:31-0500 Heart rate 78 /min DR JOAQUIM COLE MD [facility] 05-08-2022 03:31-0500 Mean blood pressure 88 mm[Hg] DR JOAQUIM COLE MD [facility] 05-08-2022 03:31-0500 Reason For Taking VItal Signs DR JOAQUIM COLE MD [facility] 05-08-2022 03:31-0500 Systolic blood pressure 117 mm[Hg] DR JOAQUIM COLE MD [facility] 05-07-2022 23:16-0500 Mean blood pressure 88 mm[Hg] DR JOAQUIM COLE MD [facility] 05-07-2022 19:35-0500 Mean blood pressure 91 mm[Hg] DR JOAQUIM COLE MD [facility] 05-07-2022 14:32-0500 Body temperature 96.98 [degF] DR JOAQUIM COLE MD [facility] 05-07-2022 14:32-0500 Heart rate 74 /min DR JOAQUIM COLE MD [facility] 05-07-2022 14:11-0500 Body height 162.[address] JOAQUIM COLE MD [facility] 05-07-2022 14:11-0500 Body weight 75.[address] JOAQUIM COLE MD [facility] 05-07-2022 14:11-0500 Body weight 28.56 kg/m2 DR JOAQUIM COLE MD [facility] 05-07-2022 13:48-0500 Heart rate 75 /min DR JOAQUIM COLE MD [facility] 05-07-2022 13:30-0500 Body temperature 96.8 [degF] DR JOAQUIM COLE MD [facility] 05-07-2022 13:08-0500 Body temperature 96.44 [degF] DR JOAQUIM COLE MD [facility] 05-07-2022 13:00-0500 Diastolic Blood Pressure Non-Invasive [address] JOAQUIM COLE MD [facility] 05-07-2022 13:00-0500 Systolic Blood Pressure Non-Invasive [address] JOAQUIM COLE MD [facility] 05-07-2022 12:55-0500 Diastolic Blood Pressure Non-Invasive [address] OJAQUIM COLE MD [facility] 05-07-2022 12:55-0500 Systolic Blood Pressure Non-Invasive [address] JOAQUIM COLE MD [facility] 05-07-2022 08:12-0500 Body height 162.[address] JOAQUIM COLE MD [facility] 05-07-2022 08:12-0500 Body weight 75.[address] JOAQUIM COLE MD [facility] 05-07-2022 08:12-0500 Heart rate 78 /min DR JOAQUIM COLE MD [facility] 04-29-2022 10:20-0400 Body height 162.[address] JOAQUIM COLE MD [facility] 04-29-2022 10:20-0400 Body weight 75.[address] JOAQUIM COLE MD [facility] 04-29-2022 10:20-0400 Body weight 28.56 kg/m2 DR JOAQUIM COLE MD [facility] 04-29-2022 10:20-0400 diastolic 64 mm[Hg] DR JOAQUIM COLE MD [facility] 04-29-2022 10:20-0400 Heart rate 88 /min DR JOAQUIM COLE MD [facility] 04-29-2022 10:20-0400 Respiratory rate 16 /min DR JOAQUIM COLE MD [facility] 04-29-2022 10:20-0400 systolic 122 mm[Hg] DR JOAQUIM COLE MD [facility] 03-01-2022 13:43-0400 Body height 162.6 cm Brandt Spolter MD Work Phone: [facility] 03-01-2022 13:43-0400 Body temperature 98.49 [degF] Brandt Josue MD Work Phone: [facility] 03-01-2022 13:43-0400 Body weight 75.3 kg Brandt Josue MD Work Phone: [facility] 03-01-2022 13:43-0400 Diastolic blood pressure 79 mm[Hg] Brandt Josue MD Work Phone: [facility] 03-01-2022 13:43-0400 Heart rate 75 /min Brandt Josue MD Work Phone: [facility] 03-01-2022 13:43-0400 Respiratory rate 16 /min Brandt Josue MD Work Phone: [facility] 03-01-2022 13:43-0400 SaO2% (BldA) [Mass fraction] 97 % Brandt oJsue MD Work Phone: [facility] 03-01-2022 13:43-0400 Systolic blood pressure 131 mm[Hg] Brandt Josue MD Work Phone: [facility] Encounters Encounter Date Encounter Type Care Provider Facility Start: 03-31-2023 ambulatory NADINE SINGH Facility:1 [id number] Start: 01-30-2023 End: 01-31-2023 ambulatory NELDA CARLOS Facility:[id number] Start: 01-09-2023 ambulatory NADINE SINGH Facility:1 [id number] Start: 06-25-2022 ambulatory NADINE SINGH Facility:1 [id number] Start: 06-25-2022 End: 06-25-2022 Subsequent hospital visit by physician [facility] Procedures Date Procedure Procedure Detail Performing Clinician Start: 06-25-2022 EPI WEAVER RT Mary Singh INVESTIGATOR FRAUD.PLASTER CASTER Work Phone: Start: 03-27-2022 Mammography Us 3 Start: 06-30-[address] JOAQUIM COLE MD Plan of Treatment Date Care Activity Detail Author Start: 09-30-2024 DIABETES SCREEN DIABETES SCREEN [facility] Start: 03-27-2023 Mammography MAMMOGRAM [facility] Start: 02-28-2022 Influenza vaccination INFLUENZA (#1) [facility] Start: 06-30-2021 ADVANCE DIRECTIVE DISCUSSION ADVANCE DIRECTIVE DISCUSSION [facility] Start: 06-30-2021 DEPRESSION ASSESSMENT DEPRESSION ASS ESSMENT [facility] Start: 05-12-2020 Colonoscopy COLONOSCOPY [facility] Start: 05-12-2020 COLORECTAL CANCER SCREENING COLORECTAL CANCER SCREENING [facility] Start: 2018 PNEUMOCOCCAL: 65+ (1 - PCV) PNEUMOCOCCAL: 65+ (1 - PCV) [facility] Start: 11-09-2003 SHINGRIX VACCINE (1 of 2) SHINGRIX V ACCINE (1 of 2) [facility] Start: 1998 COLOGUARD (FIT-DNA) COLOGUARD (FIT-D NA) [facility] Start: 1998 Colonoscopy COLONOSCOPY [facility] Start: 1998 COLORECTAL CANCER SCREENING COLORECTAL CANCER SCREENING [facility] Start: [address] COLONOGRAPHY [facility] Start: 1998 FECAL OCCULT BLOOD FECAL OCCULT BLOO D [facility] Start: 1998 LIPID SCREEN LIPID SCREEN [facility] Start: 1998 SIGMOIDOSCOPY SIGMOIDOSCOPY [facility] Start: 1993 Mammography MAMMOGRAM [facility] Start: 1972 Urine microalbumin profile DTAP,TDAP ,TD (1 - Tdap) [facility] Start: 11-09-1971 HEPATITIS C SCREENING HEPATITIS C SC REENING [facility] Start: 1965 Adult depression scr eening assessment DEPRESSION SCREENING [facility] Start: 05-11-1954 COVID-19 VACCINE (#1) COVID-19 VACCI NE (#1) [facility] Payers Date Payer Category Payer Unknown MMO MMO MEDICARE SUPPLEMENT [id number] 2021-Present [phone] [address] [place] [address] Indemnity [id number] 2021 Unknown [id number] 2017 Medicare MEDICARE MEDICAR E A AND B [id number] 2017-Present [phone] [place] [address] Medicare [id number] 2017 Medicare [id number] 1955 Unknown [id number] 1955 Unknown [id number] 1955 Unknown [id number] Social History Date Type Detail Facility Start: 06-22-2019 End: 03-01-2022 Tobacco smoking status UTIS Never smoked tobacco [facility] Start: 03-01-2022 Tobacco use and exposure Smoke less tobacco non-user [facility] Start: 03-01-2022 Alcohol intake Ex-drinker (finding) [facility] Start: 1955 Sex Assigned At Not on file [facility] Start: 02-19-2022 End: 03-27-2022 Exposure to SARS-CoV-2 (event) Not sure [facility] Sex Assigned At Sex [facility] Functional Status Date Assessment Result Facility 05-08-2022 Functional Status Independent [facility] 05-08-2022 Functional Status Room check performed [facility] 05-08-2022 Functional Status 2 [facility] 05-08-2022 Functional Status 1st floor bedr oom, 1st floor bathroom [facility] 05-07-2022 Functional Status [facility] 05-07-2022 Functional Status [facility] 05-07-2022 Functional Status None [facility] 05-07-2022 Functional Status Abduction pill ow, ice on [facility] 05-07-2022 Functional Status Maintained [facility] 04-29-2022 Functional Status Sensory Deficits None [facility] Mental Status Date Assessment Result Facility 05-08-2022 Mental Status Oriented x 4 [facility] 05-08-2022 Mental Status Orientation Oriented x 4 [facility] 05-08-2022 Mental Status [facility] 05-07-2022 Mental Status [facility] 05-07-2022 Mental Status [facility] Clinical Notes 04-20-2021 to 01-30-2023 Brandt Josue MD - 03/01/2022 2:17 PM EDT Note Date & Type Note Facility 01-30-2023 Note HNO ID: [id number] Author: Jason Sheth, RT(R) Service: ? Author Type: Technologist Type: Progress Notes Filed: 01/30/2023 12:19 PM Note Text: Radiology Service Progress Note PATIENT NAME: Stacia Gomez DATE OF SERVICE: January 30, 2023 TIME: 12:17 PM PATIENT IDENTITY VERIFICATION COMPLETED USING TWO (2) IDENTIFIERS: Name and Date of confirmed by patient verbally. FALL SCREENING: Has the patient had 2 falls in the last year or 1 fall with injury or currently using an Ambulatory Assistive Device (Walker, Cane, Wheelchair, Crutches, etc.)? Yes, Patient High Risk for Falls What interventions were put in place to prevent falls during this visit? Offered Assistance with Transfers/Clothing, Instructed Patient to Remain Seated (Not on Exam Table) Until Exam, and Increased Observations by Caregivers PATIENT GENDER DATA: Female. status: : No status: NO. PATIENT RELEVANT IMPLANT DATA REVIEWED: Not Applicable RADIOLOGY DEPARTMENT: General X-ray: Exam(s) Completed: Chest X-Ray Lower Extremity X-Ray(s): Feet, Bilateral Upper Extremity X-Ray(s): Wrist, bilateral and Hand, bilateral PERIPHERAL IV DATA: Not applicable SIGNED BY: Jason Sheth, RT(R) January 30, 2023 12:[address] [facility] 07-04-2022 Note . MICRO - Microbiology PROCEDURE: Acid Fast Bacilli Culture w Stain if Ind [*1] SOURCE: Tissue BODY SITE: Knee R COLLECTED DATE/TIME: 05/07/2022 10:17 EST RECEIVED DATE/TIME: 05/07/2022 20:40 EST START DATE/TIME: 05/07/2022 20:40 EST FREE TEXT SOURCE: 1. SUPRAPATELLAR POUCH FINAL REPORTS Final Report [] Verified Date/Time/Personnel: 07/04/2022 09:54 EST No growth of Acid Fast Bacilli PRELIMINARY REPORTS Preliminary Report [] Verified Date/Time/Personnel: 06/21/2022 16:59 EST No growth of Acid Fast Bacilli to date. Final report to follow at 8 weeks. STAINS AFS [] Verified Date/Time/Personnel: 05/08/2022 12:50 EST Acid Fast Smear from Concentrated Specimen: Negative Performing Locations *1: This test was performed at: [facility], [address] [place] [address], [facility] , [facility] ([place]) 07-04-2022 Note . MICRO - Microbiology PROCEDURE: Acid Fast Bacilli Culture w Stain if Ind [*1] SOURCE: Tissue BODY SITE: Knee R COLLECTED DATE/TIME: 05/07/2022 10:17 EST RECEIVED DATE/TIME: 05/07/2022 20:42 EST START DATE/TIME: 05/07/2022 20:42 EST FREE TEXT SOURCE: 3. FEMORAL MEMBRANE FINAL REPORTS Final Report [] Verified Date/Time/Personnel: 07/04/2022 09:54 EST No growth of Acid Fast Bacilli PRELIMINARY REPORTS Preliminary Report [] Verified Date/Time/Personnel: 06/21/2022 16:59 EST No growth of Acid Fast Bacilli to date. Final report to follow at 8 weeks. STAINS AFS [] Verified Date/Time/Personnel: 05/08/2022 12:50 EST Acid Fast Smear from Concentrated Specimen: Negative Performing Locations *1: This test was performed at: [address], [address] , [facility] ([place]) 07-04-2022 Note . MICRO - Microbiology PROCEDURE: Acid Fast Bacilli Culture w Stain if Ind [*1] SOURCE: Tissue BODY SITE: Knee R COLLECTED DATE/TIME: 05/07/2022 10:17 EST RECEIVED DATE/TIME: 05/07/2022 20:41 EST START DATE/TIME: 05/07/2022 20:41 EST FREE TEXT SOURCE: 2. TIBIAL MEMBRANE FINAL REPORTS Final Report [] Verified Date/Time/Personnel: 07/04/2022 09:54 EST No growth of Acid Fast Bacilli PRELIMINARY REPORTS Preliminary Report [] Verified Date/Time/Personnel: 06/21/2022 16:59 EST No growth of Acid Fast Bacilli to date. Final report to follow at 8 weeks. STAINS AFS [] Verified Date/Time/Personnel: 05/08/2022 12:50 EST Acid Fast Smear from Concentrated Specimen: Negative Performing Locations *1: This test was performed at: [address], [id number] , [facility] ([place]) 06-12-2022 Note . MICRO - Microbiology PROCEDURE: Fungal Culture with Stain if Ind [*1] SOURCE: Tissue BODY SITE: Knee R COLLECTED DATE/TIME: 05/07/2022 10:17 EST RECEIVED DATE/TIME: 05/07/2022 20:40 EST START DATE/TIME: 05/07/2022 20:40 EST FREE TEXT SOURCE: 2. TIBIAL MEMBRANE FINAL REPORTS Final Report [] Verified Date/Time/Personnel: 06/12/2022 12:51 EST No fungus isolated in 4 weeks. PRELIMINARY REPORTS Preliminary Report [] Verified Date/Time/Personnel: 05/10/2022 07:20 EST No fungus isolated to date. Final report to follow. STAINS FUNSM [] Verified Date/Time/Personnel: 05/08/2022 12:49 EST No fungal elements observed by calcofluor white stain. Performing Locations *1: This test was performed at: [address], [address] , [facility] ([place]) 06-12-2022 Note . MICRO - Microbiology PROCEDURE: Fungal Culture with Stain if Ind [*1] SOURCE: Tissue BODY SITE: Knee R COLLECTED DATE/TIME: 05/07/2022 10:17 EST RECEIVED DATE/TIME: 05/07/2022 20:41 EST START DATE/TIME: 05/07/2022 20:41 EST FREE TEXT SOURCE: 3. FEMORAL MEMBRANE FINAL REPORTS Final Report [] Verified Date/Time/Personnel: 06/12/2022 12:51 EST No fungus isolated in 4 weeks. PRELIMINARY REPORTS Preliminary Report [] Verified Date/Time/Personnel: 05/10/2022 07:20 EST No fungus isolated to date. Final report to follow. STAINS FUNSM [] Verified Date/Time/Personnel: 05/08/2022 12:49 EST No fungal elements observed by calcofluor white stain. Performing Locations *1: This test was performed at: [address], [address] , [facility] ([place]) 06-12-2022 Note . MICRO - Microbiology PROCEDURE: Fungal Culture with Stain if Ind [*1] SOURCE: Tissue BODY SITE: Knee R COLLECTED DATE/TIME: 05/07/2022 10:17 EST RECEIVED DATE/TIME: 05/07/2022 20:42 EST START DATE/TIME: 05/07/2022 20:42 EST FREE TEXT SOURCE: 1. SUPRAPATELLAR POUCH FINAL REPORTS Final Report [] Verified Date/Time/Personnel: 06/12/2022 12:51 EST No fungus isolated in 4 weeks. PRELIMINARY REPORTS Preliminary Report [] Verified Date/Time/Personnel: 05/10/2022 07:20 EST No fungus isolated to date. Final report to follow. STAINS FUNSM [] Verified Date/Time/Personnel: 05/08/2022 12:49 EST No fungal elements observed by calcofluor white stain. Performing Locations *1: This test was performed at: [address], [id number]- , [facility] ([place]) 05-14-2022 Note . MICRO - Microbiology PROCEDURE: Culture Tissue [*1] SOURCE: Tissue BODY SITE: Knee R COLLECTED DATE/TIME: 05/07/2022 10:17 EST RECEIVED DATE/TIME: 05/07/2022 20:42 EST START DATE/TIME: 05/07/2022 20:42 EST FREE TEXT SOURCE: 1. SUPRAPATELLAR POUCH FINAL REPORTS Final Report [] Verified Date/Time/Personnel: 05/14/2022 07:17 EST No growth at 7 days. PRELIMINARY REPORTS Preliminary Report [] Verified Date/Time/Personnel: 05/09/2022 08:02 EST No growth to date STAINS GS [] Verified Date/Time/Personnel: 05/07/2022 23:19 EST 3+ Mononuclear cells No organisms seen. Performing Locations *1: This test was performed at: [address], [id number]- , [facility] ([place]) 05-14-2022 Note . MICRO - Microbiology PROCEDURE: Culture Tissue [*1] SOURCE: Tissue BODY SITE: Knee R COLLECTED DATE/TIME: 05/07/2022 10:17 EST RECEIVED DATE/TIME: 05/07/2022 20:41 EST START DATE/TIME: 05/07/2022 20:41 EST FREE TEXT SOURCE: 3. FEMORAL MEMBRANE FINAL REPORTS Final Report [] Verified Date/Time/Personnel: 05/14/2022 07:17 EST 1 colony Staphylococcus epidermidis Sensitivity testing is not routinely performed. Plates will be held 48 hours. Contact Microbiology if further testing is indicated. No Anaerobes isolated at 7 days. PRELIMINARY REPORTS Preliminary Report [] Verified Date/Time/Personnel: 05/10/2022 10:50 EST 1 colony Staphylococcus epidermidis Sensitivity testing is not routinely performed. Plates will be held 48 hours. Contact Microbiology if further testing is indicated. No anaerobes isolated to date. Preliminary Report [] Verified Date/Time/Personnel: 05/08/2022 11:13 EST No growth to date STAINS GS [] Verified Date/Time/Personnel: 05/07/2022 23:06 EST 3+ Mononuclear cells 3+ Red Blood Cells No organisms seen. Performing Locations *1: This test was performed at: [address], [facility]- , [facility] ([place]) 05-14-2022 Note . MICRO - Microbiology PROCEDURE: Culture Tissue [*1] SOURCE: Tissue BODY SITE: Knee R COLLECTED DATE/TIME: 05/07/2022 10:17 EST RECEIVED DATE/TIME: 05/07/2022 20:40 EST START DATE/TIME: 05/07/2022 20:40 EST FREE TEXT SOURCE: 2. TIBIAL MEMBRANE FINAL REPORTS Final Report [] Verified Date/Time/Personnel: 05/14/2022 07:16 EST No growth at 7 days. PRELIMINARY REPORTS Preliminary Report [] Verified Date/Time/Personnel: 05/08/2022 11:13 EST No growth to date STAINS GS [] Verified Date/Time/Personnel: 05/07/2022 23:22 EST 3+ Mononuclear cells No organisms seen. Performing Locations *1: This test was performed at: [address], [facility] , [facility] ([place]) 05-08-2022 Note Discharge Instructions Thank you for allowing [facility] to assist you with your healthcare needs. The following is important discharge information regarding your hospital visit. Your Care Team NADINE SINGH APRN Your Diagnosis Anemia Hypertension Hyperlipemia Hypothyroidism Fibromyalgia Status post revision of total replacement of right knee What to do next Scheduled Follow-Up Appointments Appointment Type When Where Contact InformationPT Outpatient Evaluation 05/10/2022 08:30 AM EST [facility] Follow Up Appointments Follow Up with NADINE SINGH APRN When 05/21/2022 12:40 PM EST Why: This is your follow-up with you PCP to discuss your labwork results after surgery. Where: [address] [place] [address] [phone] Follow Up with JESSICA OLGUIN PA-C, Orthopedic When 05/20/2022 03:30 PM EST Why: This is your post-op appointment for staple removal. Where: [address] [facility] [address] [facility], [place] [address] [phone] Follow Up with [facility] When 05/10/2022 08:30 AM EST Why: This is your first physical therapy appointment. Follow-up as scheduled. Where: [address] [place] [phone] The Following Activity and Diet Have Been Ordered for You No qualifying data available. No qualifying data available. The Following Equipment Has Been Ordered for You No qualifying data available. The Following Treatments Have Been Ordered for You Discharge Labs Discharge Outpatient Labwork - Ordered -- cbc, anemia, follow-up within: 1-2 weeks, Results Notify to: NADINE SINGH APRN, 05/08/22 8:41:00 EST Discharge Radiology No qualifying data available. Other Therapies No qualifying data available. Post Acute Orders No qualifying data available. Someone Will Contact You Regarding These Home Health Referrals No home referrals have been ordered for you. No one will call you. Allergies Glutens (constipation) HYDROmorphone (Constipation, Dizziness, Confusion) Lanolin (Hives) Monistat Derm (hives) OxyCONTIN (Constipation, Dizziness, Confusion) Percocet 5/325 (Constipation, Dizziness, Confusion) Vitamin B12 (Methylcobalamin) (hives) aloe vera topical (hives) coconut (Anaphylaxis) erythromycin (Hives) penicillin (hives) predniSONE (Candidosis) sulfa drug (hives) traMADol (Constipation) Medications Please ask your primary doctor or pharmacist before taking any other medication not listed, including over the counter drugs, herbal medications, vitamins and or supplements as they may interact with your home medications. What How Much When Why Instructions Last Dose New acetaminophen-codeine (acetaminophen-codeine 300 mg-30 mg oral tablet) See instructions Status post revision of total replacement of right knee 1-2 tab(s) Oral q6hr Pickup at [place] [address] New aspirin (aspirin 81 mg oral delayed release tablet) 1 tab(s) by mouth Two (2) times a day Duration: 30 Days Take 81 mg aspirin twice daily with food for 4 weeks postoperatively for DVT prophylaxis Pickup at [place] [address] New docusate-senna (Senokot S 50 mg-8.6 mg oral tablet) 2 tab(s) by mouth Two (2) times a day Take until first bowel movement, then as needed Pickup at [place] [address] New doxycycline (doxycycline hyclate 100 mg oral capsule) 1 cap by mouth Every 12 hours Duration: 14 Days Pickup at [place] [address] New ferrous sulfate (ferrous sulfate 325 mg (65 mg elemental iron) oral tablet) 1 tab(s) by mouth Two (2) times a day New folic acid (folic acid 1 mg oral tablet) 1 tab(s) by mouth Once a day New ibuprofen (ibuprofen 600 mg oral tablet) 1 tab(s) by mouth Every 6 hours as needed for as needed for pain Pickup at [place] [address] Changed amitriptyline (amitriptyline 25 mg oral tablet) 1 tab(s) by mouth Daily at bedtime Changed fexofenadine (Dominique 24 Hour Allergy oral tablet) 180 Milligram by mouth Every day Changed pravastatin (pravastatin 40 mg oral tablet) 1 tab(s) by mouth Once a day (in the morning) Unchanged cholecalciferol (Vitamin D3 25 mcg (1000 intl units) oral tablet) 1 tab(s) by mouth Once a day Unchanged levothyroxine (Synthroid 112 mcg (0.112 mg) oral tablet) 1 tab(s) by mouth Once a day before a meal Unchanged lisinopril (lisinopril 30 mg oral tablet) 1 tab(s) by mouth Every day Unchanged montelukast (montelukast 10 mg oral tablet) 1 tab(s) by mouth Once a day Unchanged multivitamin with minerals (Calcium and Magnesium oral tablet) by mouth Once a day Unchanged multivitamin with minerals (Centrum oral tablet) 1 tab(s) by mouth Every day Unchanged pantoprazole (pantoprazole 40 mg oral enteric coated tablet) 1 tab(s) by mouth Once a day before a meal Unchanged pregabalin (pregabalin 150 mg oral capsule) 1 cap by mouth Once a day Unchanged pregabalin (pregabalin 225 mg oral capsule) 1 cap by mouth Daily at bedtime Unchanged zinc sulfate (Zinc) 1 tab(s) by mouth Once a day Pharmacy Information [place] [address]: [address] [place], [place] [phone] What How Much When Comments Stop Taking herbal/ nutritional product 2 cap by mouth Once a day (in the morning) Calm Please take this list to your next doctor s visit. Bring all medications you take, including over the counter medications, herbals and other supplements with you to your doctor s visit. Patients and families are reminded to discard old lists and to update any records with all medication providers or retail pharmacies. Medication Leaflets acetaminophen and codeine (a SEET jaron alfonso and SUPRIYA keller) Tylenol with Codeine #3, Tylenol with Codeine #4 What is the most important information I should know about acetaminophen and codeine? MISUSE OF OPIOID MEDICINE CAN CAUSE ADDICTION, OVERDOSE, OR . Keep the medication in a place where others cannot get to it. Do not give this medicine to anyone younger than 12 years old, or anyone under 18 who recently had surgery to remove the tonsils or adenoids. Taking opioid medicine during may cause life-threatening withdrawal symptoms in the . Fatal side effects can occur if you use opioid medicine with alcohol, or with other drugs that cause drowsiness or slow your breathing. Stop taking this medicine and call your doctor right away if you have skin redness or a rash that spreads and causes blistering and peeling. What is acetaminophen and codeine? Acetaminophen and codeine is a combination medicine used to relieve moderate to severe pain. Acetaminophen and codeine may also be used for purposes not listed in this medication guide. What should I discuss with my healthcare provider before taking acetaminophen and codeine? You should not use this medicine if you are allergic to acetaminophen or codeine, or if you have: severe asthma or breathing problems; or a blockage in your stomach or intestines. In some people, codeine breaks down rapidly in the liver and reaches higher than normal levels in the body. This can cause dangerously slow breathing and may cause . Codeine is not approved for use by anyone younger than 12 years old. Do not give this medicine to anyone younger than 18 years old who recently had surgery to remove the tonsils or adenoids. Tell your doctor if you have ever had: breathing problems, sleep apnea; liver disease; alcoholism or drug addiction; urination problems; kidney disease; or problems with your pancreas, thyroid, or gallbladder. If you use opioid medicine while you are , your baby could become dependent on the drug. This can cause life-threatening withdrawal symptoms in the baby after it is born. Babies born dependent on opioids may need medical treatment for several weeks. Do not breastfeed. Codeine can pass into breast milk and cause drowsiness, breathing problems, or in a nursing baby. How should I take acetaminophen and codeine? Follow the directions on your prescription label and read all medication guides. Never use this medicine in larger amounts, or for longer than prescribed. An overdose can damage your liver or cause . Tell your doctor if you feel an increased urge to use more of this medicine. Never share opioid medicine with another person, especially someone with a history of drug abuse or addiction. MISUSE CAN CAUSE ADDICTION, OVERDOSE, OR . Keep the medication in a place where others cannot get to it. Selling or giving away opioid medicine is against the law. If you need surgery or medical tests, tell the surgeon or doctor ahead of time that you are using this medicine. Do not stop using acetaminophen and codeine suddenly after long-term use, or you could have unpleasant withdrawal symptoms. Ask your doctor how to safely stop using this medicine. Store at room temperature away from moisture and heat. Keep track of your medicine. You should be aware if anyone is using it improperly or without a prescription. Do not keep leftover opioid medication. Just one dose can cause in someone using this medicine accidentally or improperly. Ask your pharmacist where to locate a drug take-back disposal program. If there is no take-back program, flush the unused medicine down the toilet. What happens if I miss a dose? Since this medicine is used for pain, you are not likely to miss a dose. Skip any missed dose if it is almost time for your next dose. Do not use two doses at one time. What happens if I overdose? Seek emergency medical attention or call the Poison Help line at . An opioid overdose can be fatal, especially in a child or other person using the medicine without a prescription. Overdose symptoms may include severe drowsiness, pinpoint pupils, slow breathing, or no breathing. Your doctor may recommend you get naloxone (a medicine to reverse an opioid overdose) and keep it with you at all times. A person caring for you can give the naloxone if you stop breathing or don't wake up. Your caregiver must still get emergency medical help and may need to perform CPR (cardiopulmonary resuscitation) on you while waiting for help to arrive. Anyone can buy naloxone from a pharmacy or local health department. Make sure any person caring for you knows where you keep naloxone and how to use it. What should I avoid while taking acetaminophen and codeine? Avoid driving or operating machinery until you know how this medicine will affect you. Dizziness or drowsiness can cause falls, accidents, or severe injuries. Do not drink alcohol. Dangerous side effects or could occur. Ask a doctor or pharmacist before using any other medicine that may contain acetaminophen (sometimes abbreviated as APAP). Taking certain medications together can lead to a fatal overdose. What are the possible side effects of acetaminophen and codeine? Get emergency medical help if you have signs of an allergic reaction: hives; difficulty breathing; swelling of your face, lips, tongue, or throat. Opioid medicine can slow or stop your breathing, and may occur. A person caring for you should give naloxone and/or seek emergency medical attention if you have slow breathing with long pauses, blue colored lips, or if you are hard to wake up. In rare cases, acetaminophen may cause a severe skin reaction that can be fatal. This could occur even if you have taken acetaminophen in the past and had no reaction. Stop taking this medicine and call your doctor right away if you have skin redness or a rash that spreads and causes blistering and peeling. Call your doctor at once if you have: noisy breathing, sighing, shallow breathing, breathing that stops; a light-headed feeling, like you might pass out; confusion, severe drowsiness; liver problems--nausea, upper stomach pain, itching, loss of appetite, dark urine, alex-colored stools, jaundice (yellowing of the skin or eyes); or high levels of serotonin in the body--agitation, hallucinations, fever, sweating, shivering, fast heart rate, muscle stiffness, twitching, loss of coordination, nausea, vomiting, diarrhea. Serious breathing problems may be more likely in older adults and in those who are debilitated or have wasting syndrome or chronic breathing disorders. Common side effects include: drowsiness, dizziness, feeling tired; nausea, vomiting, stomach pain; constipation; or headache. This is not a complete list of side effects and others may occur. Call your doctor for medical advice about side effects. You may report side effects to FDA at 8-286-VHC-7552. What other drugs will affect acetaminophen and codeine? You may have breathing problems or withdrawal symptoms if you start or stop taking certain other medicines. Tell your doctor if you also use an antibiotic, antifungal medication, heart or blood pressure medication, seizure medication, or medicine to treat HIV or hepatitis C. Opioid medication can interact with many other drugs and cause dangerous side effects or . Be sure your doctor knows if you also use: cold or allergy medicines, bronchodilator asthma/COPD medication, or a diuretic ('water pill'); medicines for motion sickness, irritable bowel syndrome, or overactive bladder; other opioids--opioid pain medicine or prescription cough medicine; a sedative like Valium--diazepam, alprazolam, lorazepam, Xanax, Klonopin, Versed, and others; drugs that make you sleepy or slow your breathing--a sleeping pill, muscle relaxer, medicine to treat mood disorders or mental illness; drugs that affect serotonin levels in your body--a stimulant, or medicine for depression, Parkinson's disease, migraine headaches, serious infections, or nausea and vomiting. This list is not complete. Other drugs may affect acetaminophen and codeine, including prescription and [id number] medicines, vitamins, and herbal products. Not all possible interactions are listed here. Where can I get more information? Your doctor or pharmacist can provide more information about acetaminophen and codeine. Remember, keep this and all other medicines out of the reach of children, never share your medicines with others, and use this medication only for the indication prescribed. Every effort has been made to ensure that the information provided by [employer]. ('[employer]') is accurate, up-to-date, and complete, but no guarantee is made to that effect. Drug information contained herein may be time sensitive. [employer] information has been compiled for use by healthcare practitioners and consumers in the [place] and therefore [employer] does not warrant that uses outside of the [place] are appropriate, unless specifically indicated otherwise. [employer]'s drug information does not endorse drugs, diagnose patients or recommend therapy. [employer] drug information is an informational resource designed to assist licensed healthcare practitioners in caring for their patients and/or to serve consumers viewing this service as a supplement to, and not a substitute for, the expertise, skill, knowledge and judgment of healthcare practitioners. The absence of a warning for a given drug or drug combination in no way should be construed to indicate that the drug or drug combination is safe, effective or appropriate for any given patient. [facility] does not assume any responsibility for any aspect of healthcare administered with the aid of information [facility] provides. The information contained herein is not intended to cover all possible uses, directions, precautions, warnings, drug interactions, allergic reactions, or adverse effects. If you have questions about the drugs you are taking, check with your doctor, nurse or pharmacist. Copyright 9017-3386 [email or web address][facility]. Version: 18.. Revision Date: 08/04/2020. doxycycline (oral/injection) (DOX delfino black) Acticlate, Adoxa, Alodox, Avidoxy, Doryx, Mondoxyne NL, Monodox, Morgidox, Okebo, Oracea, Oraxyl, Targadox, Vibramycin What is the most important information I should know about doxycycline? You should not take this medicine if you are allergic to any tetracycline antibiotic. Children younger than 8 years old should use doxycycline only in cases of severe or life-threatening conditions. This medicine can cause permanent yellowing or graying of the teeth in children Using doxycycline during could harm the unborn baby or cause permanent tooth discoloration later in the baby's life. What is doxycycline? Doxycycline is a tetracycline antibiotic that Doxycycline is used to treat many different bacterial infections, such as acne, urinary tract infections, intestinal infections, eye infections, gonorrhea, chlamydia, periodontitis (gum disease), and others. Doxycycline is also used to treat blemishes, bumps, and acne-like lesions caused by rosacea. Doxycycline will not treat facial redness caused by rosacea. Some forms of doxycycline are used to prevent malaria, to treat anthrax, or to treat infections caused by mites, ticks, or lice. Doxycycline may also be used for purposes not listed in this medication guide. What should I discuss with my healthcare provider before taking doxycycline? You should not take this medicine if you are allergic to doxycycline or other tetracycline antibiotics such as demeclocycline, minocycline, tetracycline, or tigecycline. Tell your doctor if you have ever had: liver disease; kidney disease; asthma or sulfite allergy; increased pressure inside your skull; or if you also take isotretinoin, seizure medicine, or a blood thinner such as warfarin (Coumadin). If you are using doxycycline to treat gonorrhea, your doctor may test you to make sure you do not also have syphilis, another sexually transmitted disease. Taking this medicine during may affect tooth and bone development in the unborn baby. Taking doxycycline during the last half of can cause permanent tooth discoloration later in the baby's life. Tell your doctor if you are or if you become . Doxycycline can make control pills less effective. Ask your doctor about using a non-hormonal control (condom, diaphragm with spermicide) to prevent . Doxycycline can pass into breast milk and may affect bone and tooth development in a nursing . Do not breastfeed while you are taking doxycycline. Doxycycline can cause permanent yellowing or graying of the teeth in children younger than 8 years old. Children should use doxycycline only in cases of severe or life-threatening conditions such as anthrax or [place] spotted fever. The benefit of treating a serious condition may outweigh any risks to the child's tooth development. How should I take doxycycline? Follow all directions on your prescription label and read all medication guides or instruction sheets. Use the medicine exactly as directed. Take doxycycline with a full glass of water. Drink plenty of liquids while you are taking doxycycline. Read and carefully follow any Instructions for Use provided with your medicine. Ask your doctor or pharmacist if you do not understand these instructions. Most brands of doxycyline may be taken with food or milk if the medicine upsets your stomach. Different brands of doxycycline may have different instructions about taking them with or without food. Take Oracea on an empty stomach, at least 1 hour before or 2 hours after a meal. You may need to split a doxycycline tablet to get the correct dose. Follow your doctor's instructions. Swallow a delayed-release capsule or tablet whole. Do not crush, chew, break, or open it. Measure liquid medicine with the dosing syringe provided, or with a special dose-measuring spoon or medicine cup. If you do not have a dose-measuring device, ask your pharmacist for one. If you take doxycycline to prevent malaria: Start taking the medicine 1 or 2 days before entering an area where malaria is common. Continue taking the medicine every day during your stay and for at least 4 weeks after you leave the area. Doxycycline is usually given by injection only if you are unable to take the medicine by mouth. A healthcare provider will give you this injection as an infusion into a vein. Use this medicine for the full prescribed length of time, even if your symptoms quickly improve. Skipping doses can increase your risk of infection that is resistant to medication. Doxycycline will not treat a viral infection such as the flu or a common cold. Store at room temperature away from moisture, heat, and light. Throw away any unused medicine after the expiration date on the label has passed. Using doxycycline can cause damage to your kidneys. What happens if I miss a dose? Take the medicine as soon as you can, but skip the missed dose if it is almost time for your next dose. Do not take two doses at one time. What happens if I overdose? Seek emergency medical attention or call the Poison Help line at . What should I avoid while taking doxycycline? Do not take iron supplements, multivitamins, calcium supplements, antacids, or laxatives within 2 hours before or after taking doxycycline. Avoid taking any other antibiotics with doxycycline unless your doctor has told you to. Doxycycline could make you sunburn more easily. Avoid sunlight or tanning beds. Wear protective clothing and use sunscreen (SPF 30 or higher) when you are outdoors. Antibiotic medicines can cause diarrhea, which may be a sign of a new infection. If you have diarrhea that is watery or bloody, call your doctor. Do not use anti-diarrhea medicine unless your doctor tells you to. What are the possible side effects of doxycycline? Get emergency medical help if you have signs of an allergic reaction (hives, difficult breathing, swelling in your face or throat) or a severe skin reaction (fever, sore throat, burning in your eyes, skin pain, red or purple skin rash that spreads and causes blistering and peeling). Seek medical treatment if you have a serious drug reaction that can affect many parts of your body. Symptoms may include: skin rash, fever, swollen glands, flu-like symptoms, muscle aches, severe weakness, unusual bruising, or yellowing of your skin or eyes. This reaction may occur several weeks after you began using doxycycline. Call your doctor at once if you have: severe stomach pain, diarrhea that is watery or bloody; throat irritation, trouble swallowing; chest pain, irregular heart rhythm, feeling short of breath; little or no urination; low white blood cell counts--fever, chills, swollen glands, body aches, weakness, pale skin, easy bruising or bleeding; increased pressure inside the skull--severe headaches, ringing in your ears, dizziness, nausea, vision problems, pain behind your eyes; or signs of liver or pancreas problems--loss of appetite, upper stomach pain (that may spread to your back), tiredness, nausea or vomiting, fast heart rate, dark urine, jaundice (yellowing of the skin or eyes). Common side effects may include: nausea, vomiting, upset stomach, loss of appetite; mild diarrhea; skin rash or itching; darkened skin color; or vaginal itching or discharge. This is not a complete list of side effects and others may occur. Call your doctor for medical advice about side effects. You may report side effects to FDA at 5-163-CAD-2753. What other drugs will affect doxycycline? Sometimes it is not safe to use certain medications at the same time. Some drugs can affect your blood levels of other drugs you take, which may increase side effects or make the medications less effective. Other drugs may affect doxycycline, including prescription and qsap-squ-chchfee medicines, vitamins, and herbal products. Tell your doctor about all your current medicines and any medicine you start or stop using. Where can I get more information? Your pharmacist can provide more information about doxycycline. Remember, keep this and all other medicines out of the reach of children, never share your medicines with others, and use this medication only for the indication prescribed. Every effort has been made to ensure that the information provided by [employer]') is accurate, up-to-date, and complete, but no guarantee is made to that effect. Drug information contained herein may be time sensitive. [employer] information has been compiled for use by healthcare practitioners and consumers in the [place] and therefore [employer] does not warrant that uses outside of the [place] are appropriate, unless specifically indicated otherwise. [employer] drug information does not endorse drugs, diagnose patients or recommend therapy. [employer] drug information is an informational resource designed to assist licensed healthcare practitioners in caring for their patients and/or to serve consumers viewing this service as a supplement to, and not a substitute for, the expertise, skill, knowledge and judgment of healthcare practitioners. The absence of a warning for a given drug or drug combination in no way should be construed to indicate that the drug or drug combination is safe, effective or appropriate for any given patient. [facility] does not assume any responsibility for any aspect of healthcare administered with the aid of information [facility] provides. The information contained herein is not intended to cover all possible uses, directions, precautions, warnings, drug interactions, allergic reactions, or adverse effects. If you have questions about the drugs you are taking, check with your doctor, nurse or pharmacist. Copyright 8183-3679 [facility]. Version: 21.04. Revision Date: 05/03/2020. Education Materials [facility] Post-operative Instructions PLEASE FOLLOW [facility] POST-OP INSTRUCTIONS GIVEN WATCH FOR SIGNS OF INFECTION: call the office ([phone]) if experencing any of the following: (Usually appears 36-48 hours after surgery) Increased temperature (101 degrees Fahrenheit or higher) Redness or swelling Increased uncontrolled pain Foul odor or drainage Calf discomfort Significant swelling Or if having any chest pain, shortness of breath, or difficulty breathing or swallowing call the office or go the nearest Emergency Room. If you have any questions, please call your doctor at the number listed on your follow up instructions. Form: 338A (29793) R: 11/03 Additional Information VACCINATE! IT SAVES LIVES! Members of the community who have not yet received the COVID-19 vaccine and would like to receive it can visit one of [facility] vaccine clinics. There are many vaccine clinic locations within the [facility]. For locations and available times, please visit [email or web address].o wio.gov/. It is important to note that some COVID mobile vaccine clinics are held outdoors and may be canceled in rainy or stormy conditions. To learn more about pediatric vaccinations (ages 5-11), we invite you to visit the [facility] webpage. [email or web address] [email or web address] To learn more about the COVID-19 vaccine, we invite you to visit the [employer] website for a list of frequently asked questions. [email or web address] [facility] Patient Portal Access Instructions: Stay connected with your healthcare team and access your personal medical information anytime with the [facility] Patient Portal.If you would like a full copy of your medical records, please contact the [facility] Medical Records Department, Friday through Friday between 8a.m. and 4:30p.m. Please follow the directions below to access the portal: 1.Access the email account you provided upon registration to the [facility].2.Look for an invitation email from [facility].3.Open the email and access the invitation link: Accept Invitation to [facility].Fill in the required garcia to create your account. Sign into www.[facility] with your username and password that you created in the above steps to stay up to date. You can then view a summary of results, a summary of your visits, and the ability to download your summaries to your computer or send the information securely to a physician. Remember that your healthcare information is confidential, so carefully consider who you will allow to register on the [facility] Patient Portal for access to your information. You can also access the [facility] Patient Portal on the [employer] abe. Simply click on Health Records under Health Data and then click on the [employer] logo. HOW TO SAFELY DISPOSE OF PRESCRIPTION MEDICATIONS Please use one of the following methods to safely dispose of your unused medications. 1.Use a drug disposal kit: the drug disposal pouch allows you to safely discard your old and unused drugs. Ask your nurse to give you one when you are discharged.2.Visit a local take-back location: Many local pharmacies and police departments have programs that collect old and unwanted prescription drugs. Call your local pharmacy or go to http://bit.LgDb.com/4N3Jh8b to find one close to you.3.Make use of household items: Use cat litter or old coffee grounds to dispose medications if other options are not available. Mix your drugs with these household products, seal them in an airtight container and throw it into the garbage. Call [facility]: [phone] to be sure your drugs can be disposed of in this way. Some medicines may require a different approach.4.Never flush your medications down the toilet. IF YOU HAVE BEEN PRESCRIBED AN OPIOID FOR PAIN If you have been prescribed an opioid (such as hydrocodone, oxycodone or morphine), it is critical to understand the possible side effects and risks of opioid pain medications. Even when taken as directed, opioids can have several side effects including: Tolerance, meaning you might need to take more of a medication for the same pain relief. Nausea, vomiting and/or constipation. Sleepiness, dizziness, dry mouth, confusion, depression or itching. Physical dependence, meaning you have withdrawal symptoms when a medication is stopped, can develop within a few days. KNOW YOUR RESPONSIBILITIES It is important to know exactly how much and how often to take the opioid pain medications you are prescribed. Never take opioids in higher amounts or more often than prescribed. Do not combine opioids with alcohol or other drugs that cause drowsiness, such as benzodiazepines, also known as benzos, including diazepam and alprazolam, muscle relaxants or sleep aids. Never sell or share prescription opioids. This is illegal. Store opioids in a secure place and out of reach of others (including children, family, friends and visitors). The last page of this document has been signed and retained as a CHART COPY. Signatures Patient Education Materials [address] [place] [address] Post-op Instruction 01/2017 (05731) Medication Leaflets acetaminophen and codeine, doxycycline (oral/injection) My discharge plan and instructions have been reviewed and explained to me and I,STACIA GOMEZ understand my current condition and have read and understand these discharge instructions. I have received a written copy of the plan/instructions. If I have questions, I am aware that I should contact my doctor. Patient/Automation Analyst Signature: Date/Time: Relationship to Patient: Witness Name/Signature: Date/Time: [facility] 05-08-2022 Hospital Discharg e instructions Patient Education 05/08/2022 08:35:59 5 - [facility] Post-op Instruction 01/2017 (74407) [facility] Post-operative Instructions PLEASE FOLLOW [facility] POST-OP INSTRUCTIONS GIVEN WATCH FOR SIGNS OF INFECTION: call the office ([phone]) if experencing any of the following: (Usually appears 36-48 hours after surgery) Increased temperature (101 degrees Fahrenheit or higher) Redness or swelling Increased uncontrolled pain Foul odor or drainage Calf discomfort Significant swelling Or if having any chest pain, shortness of breath, or difficulty breathing or swallowing call the office or go the nearest Emergency Room. If you have any questions, please call your doctor at the number listed on your follow up instructions. Form: 338A (51721) R: 11/03 Follow Up Care 03/22/2022 10:55:07 With:[facility] Address: [address] [place] [address] [phone] When:05/10/2022 08:30:00 Comments:This is your first physical therapy appointment. Follow-up as scheduled. With:JESSICA OLGUIN PA-C, Orthopedic Address: [facility] [address] [facility], [place] [address] [phone] When:05/20/2022 15:30:00 Comments:This is your post-op appointment for staple removal. With:NADINE SINGH APRN Address: [address] [facility] [address] [place] [address] [phone] When:05/21/2022 12:40:00 Comments:This is your follow-up with you PCP to discuss your labwork results after surgery. [facility] 05-08-2022 Note Date of Service 05/08/2022 Chief Complaint Revision of right knee replacement Subjective Patient seen and evaluated while resting in bed. She states that she is doing well and denies any problems or concerns today. She is currently on oxygen but states that she is not short of breath. We will have to check her oxygen when she gets up and moves around to make sure it does not drop. She is 98% right now on 1.5 liters. She denies any fever, chills, cough, shortness of breath, chest pain, abdominal pain, nausea or dysuria. All questions answered. Objective Vitals and Measurements T: 36.5 C (Oral) TMIN: 35.8 C (Temporal Artery) TMAX: 36.7 C (Oral) HR: 65(Monitored) RR: 16 BP: 123/75 SpO2: 98% HT: 162.6 cm WT: 75.5 kg BMI: 28.56 Intake and Output 7AM Yesterday to 7AM Today Intake and Output (Last 24 hours) Intake Administration Information 1421.56 Supplement Intake 240.00 Output Intra-Op EBL 250.00 Total Summary Total Intake 1661.56 Total Output 250.00 Fluid Balance 1411.56 Physical Exam General: No acute distress. Patient is alert and appropriate. Skin: No rash. Skin is warm, dry and intact. HEENT: Head is normocephalic, atraumatic. Pupils are equal, round and reactive. Neck: Supple. No lymphadenopathy, thyromegaly. Lungs: Bilaterally clear but diminished without crepitation or wheeze. Unlabored. Heart: Heart is regular rhythm, S1, S2. No murmurs, gallops or rubs. Abdomen: Abdomen is soft, nontender. Bowels sounds present in all quadrants. Extremities: No clubbing, cyanosis, or edema. Peripheral pulses palpable. No calf tenderness. Right knee surgical dressing dry and intact. Neurological: Patient is awake and alert to person, place and time. Following simple commands, moving all extremities. Weight Dosing Weight: 75.5 kg (05/07/22) Dosing Weight: 75.5 kg (05/07/22) Medications Medications (31) Active Scheduled: (18) aspirin 81 mg Chewable 81 mg 1 tab(s), Oral, BIDM atorvastatin 10 mg tablet 10 mg 1 tab(s), Oral, qDay docusate sodium 100 mg Capsule 100 mg 1 cap(s), Oral, BID docusate-senna (Senokot S) 50 mg-8.6 mg Tablet 2 tab(s), Oral, BID doxycycline hyclate 100 mg Capsule 100 mg 1 cap(s), Oral, q12h famotidine 20 mg tablet 20 mg 1 tab(s), Oral, qDay ferrous sulfate 325 mg Tablet 325 mg 1 tab(s), Oral, BID folic acid 1 mg tablet 1 mg 1 tab(s), Oral, qDay levothyroxine 112 mcg tablet 112 mcg 1 tab(s), Oral, qDayAC lisinopril 20 mg tablet 30 mg 1.5 tab(s), Oral, Daily loratadine 10 mg Tablet 10 mg 1 tab(s), Oral, qDay magnesium hydroxide 8% Suspension 30 mL UD 30 mL, Oral, Daily montelukast 10 mg Tablet 10 mg 1 tab(s), Oral, qDay multivitamin (Myadec) with minerals Therapeutic Multiple Vitamins with Minerals Tablet 1 tab(s), Oral, qDayM ondansetron 2 mg/ 1 mL 2 mL INJ 4 mg 2 mL, IV Push, q8h pantoprazole 20 mg EC tablet 40 mg 2 tab(s), Oral, qDayAC pregabalin 25 mg capsule + pregabalin 50 mg capsule 225 mg, Oral, qHS pregabalin 50 mg capsule 150 mg 3 cap(s), Oral, qDay Continuous: (2) Lactated Ringers 1,000 mL 1,000 mL, Intravenous, 100 mL/hr Lactated Ringers 1000 mL 1,000 mL, Intravenous, 20 mL/hr PRN: (11) acetaminophen 325 mg Tablet 650 mg 2 tab(s), Oral, q4h acetaminophen-codeine 300mg-30 mg tablet 2 tab(s), Oral, q6hr acetaminophen-codeine 300mg-30 mg tablet 1 tab(s), Oral, q6hr diphenhydramine 25 mg tablet 25 mg 1 tab(s), Oral, q6h diphenhyDRAMINE 50 mg/mL (1 mL) INJ 25 mg 0.5 mL, IV Push, q6h ibuprofen 600 mg tablet 600 mg 1 tab(s), Oral, q6h ketorolac 30 mg/mL (1 mL) vial 15 mg 0.5 mL, IV Push, q6h morphine 2 mg/mL 1 mL syringe 2 mg 1 mL, IV Push, q1h ondansetron 2 mg/ 1 mL 2 mL INJ 4 mg 2 mL, IV Push, q8h prochlorperazine 10 mg/2 mL vial 5 mg 1 mL, IV Push, q6h sodium biphosphate-sodium phosphate 19 gm-7 gm Enema 133 mL, Rectal, qDay Lab Results 05/08 05:22 WBC: 10.0 Hgb: 9.5 L Hct: 28.1 L Platelet: 187 Neutrophil %: 78.8 Glucose Level: 107 Sodium Level: 144 Potassium Level: 5.0 BUN: 27 H Creatinine Lvl (s): 0.82 Imaging Results and Diagnostics XR Knee 1 or 2 Views Right Result Date: May 07, 2022 Verified By: RAJ DALTON MD CLINICAL STATEMENT: IMPRESSION: Expected postsurgical changes status post total knee arthroplasty. EKG No qualifying data available. Assessment/Plan 1. Anemia Acute, secondary to blood loss from surgery *Hemoglobin was 11.2 on 04/29, down to 9.5 this am. *Patient started on ferrous sulfate 325 mg PO BID. *Follow-up with PCP for recheck in next 1-2 weeks. 2. Hypertension Chronic, controlled *SBP goal of 140 or less - meeting goal. *Continue current home medication. 3. Hyperlipemia Chronic *Continue statin at current dose. 4. Hypothyroidism Chronic *Continue Synthroid at current dose. 5. Fibromyalgia Chronic *Continue Lyrica at current dose. 6. Status post revision of total replacement of right knee Management per primary team. *POD #1. Patient is medically stable from hospitalist perspective as long as she meets goals of primary team and therapy. We will check ambulatory pulse ox to make sure patient does not need oxygen. DVT prophylaxis with aspirin 81 mg PO BID, SCDs. Code status: Full Code. Labs, diagnostic test and progress notes reviewed as noted in HPI. Plan of care discussed with patient. All questions answered. Patient verbalizes understanding and is agreeable with plan of care. This case was discussed with collaborating physician, Dr. Opal Rendon. Time Spent 35 minutes. Digitally Signed by ANGELINA BURK on 05/08/2022 11:05 AM [facility] 05-08-2022 Note Date of Service May 08, 2022 Subjective The patient was sitting in bed upon examination. Patient denies any chest pain, shortness of breath, dizziness, lightheadedness, nausea or vomiting, or calf pain. No adverse overnight events. Pain has been controlled on medications. Patient overall is doing very well this morning. She states she has very little pain. She has been on nasal O2 1.5 L. She denies any shortness of breath. She has been using ferrous sulfate and folic acid at home. She did have some preoperative anemia. Patient was a complete revision and she had cultures which have been with no growth or organisms. She is currently on doxycycline. She has significant allergies and cannot take other narcotics. She tolerates Tylenol with codeine and ibuprofen. Objective Vitals and Measurements T: 36.5 C (Oral) TMIN: 35.8 C (Temporal Artery) TMAX: 36.7 C (Oral) HR: 65(Monitored) RR: 16 BP: 123/75 SpO2: 98% HT: 162.6 cm WT: 75.5 kg BMI: 28.56 Intake and Output 7AM Yesterday to 7AM Today Intake and Output (Last 24 hours) Intake Administration Information 1421.56 Supplement Intake 240.00 Output Intra-Op EBL 250.00 Total Summary Total Intake 1661.56 Total Output 250.00 Fluid Balance 1411.56 Physical Exam Vital signs stable, afebrile: Currently on 1.5 L nasal O2. SCDs and NELLY hose are in place bilaterally Patient is able to plantarflex and dorsiflex actively Sensation is intact to saphenous, sural, superficial and deep peroneal, and tibial distribution Dressing is clean dry and intact Negative signs and symptoms of DVT, negative Homans bilaterally Weight Dosing Weight: 75.5 kg (05/07/22) Dosing Weight: 75.5 kg (05/07/22) Medications Medications (32) Active Scheduled: (19) aspirin 81 mg Chewable 81 mg 1 tab(s), Oral, BIDM atorvastatin 10 mg tablet 10 mg 1 tab(s), Oral, qDay bisacodyl 5 mg EC tablet 10 mg 2 tab(s), Oral, Once docusate sodium 100 mg Capsule 100 mg 1 cap(s), Oral, BID docusate-senna (Senokot S) 50 mg-8.6 mg Tablet 2 tab(s), Oral, BID doxycycline hyclate 100 mg Capsule 100 mg 1 cap(s), Oral, q12h famotidine 20 mg tablet 20 mg 1 tab(s), Oral, qDay ferrous sulfate 325 mg Tablet 325 mg 1 tab(s), Oral, BID folic acid 1 mg tablet 1 mg 1 tab(s), Oral, qDay levothyroxine 112 mcg tablet 112 mcg 1 tab(s), Oral, qDayAC lisinopril 20 mg tablet 30 mg 1.5 tab(s), Oral, Daily loratadine 10 mg Tablet 10 mg 1 tab(s), Oral, qDay magnesium hydroxide 8% Suspension 30 mL UD 30 mL, Oral, Daily montelukast 10 mg Tablet 10 mg 1 tab(s), Oral, qDay multivitamin (Myadec) with minerals Therapeutic Multiple Vitamins with Minerals Tablet 1 tab(s), Oral, qDayM ondansetron 2 mg/ 1 mL 2 mL INJ 4 mg 2 mL, IV Push, q8h pantoprazole 20 mg EC tablet 40 mg 2 tab(s), Oral, qDayAC pregabalin 25 mg capsule + pregabalin 50 mg capsule 225 mg, Oral, qHS pregabalin 50 mg capsule 150 mg 3 cap(s), Oral, qDay Continuous: (2) Lactated Ringers 1,000 mL 1,000 mL, Intravenous, 100 mL/hr Lactated Ringers 1000 mL 1,000 mL, Intravenous, 20 mL/hr PRN: (11) acetaminophen 325 mg Tablet 650 mg 2 tab(s), Oral, q4h acetaminophen-codeine 300mg-30 mg tablet 2 tab(s), Oral, q6hr acetaminophen-codeine 300mg-30 mg tablet 1 tab(s), Oral, q6hr diphenhydramine 25 mg tablet 25 mg 1 tab(s), Oral, q6h diphenhyDRAMINE 50 mg/mL (1 mL) INJ 25 mg 0.5 mL, IV Push, q6h ibuprofen 600 mg tablet 600 mg 1 tab(s), Oral, q6h ketorolac 30 mg/mL (1 mL) vial 15 mg 0.5 mL, IV Push, q6h morphine 2 mg/mL 1 mL syringe 2 mg 1 mL, IV Push, q1h ondansetron 2 mg/ 1 mL 2 mL INJ 4 mg 2 mL, IV Push, q8h prochlorperazine 10 mg/2 mL vial 5 mg 1 mL, IV Push, q6h sodium biphosphate-sodium phosphate 19 gm-7 gm Enema 133 mL, Rectal, qDay Lab Results 05/08 05:22 WBC: 10.0 Hgb: 9.5 L Hct: 28.1 L Platelet: 187 Neutrophil %: 78.8 Glucose Level: 107 Sodium Level: 144 Potassium Level: 5.0 BUN: 27 H Creatinine Lvl (s): 0.82 EKG No qualifying data available. Assessment/Plan 1. Hypertension 2. Hyperlipemia 3. Hypothyroidism 4. Fibromyalgia 5. Status post revision of total replacement of right knee 1. Status post right revision total knee arthroplasty postop day #1 2. Continue pain medications: Tylenol with codeine and ibuprofen 3. DVT prophylaxis: Take 81 mg aspirin twice daily with food for 4 weeks postoperatively for DVT prophylaxis. Patient will continue with her pantoprazole and we did discuss potential for stomach irritation with both the ibuprofen and aspirin. I did recommend she take those separate from one another. If she does have stomach irritation I would like her to stop the ibuprofen. She voiced understanding agreement. 4. Physical therapy: Weightbearing as tolerated with walker 5. H & H: 9.5/28.1, asymptomatic. Postoperative anemia secondary to acute blood loss from surgery without intraoperative complications. Preoperatively patient was at 11.2 with her hemoglobin on April 29, 2022. She takes at home ferrous sulfate and folic acid. This was placed for orders to begin in the hospital and she will continue with this medication on discharge. I also recommend postoperative follow-up with primary care physician with repeat lab work and continued follow with her anemia. 6. Continue antibiotics for 2 weeks postoperatively while following cultures: Currently no organisms or growth on cultures. She will be on doxycycline for 2 weeks postoperatively. Discussed with the patient side effects including increased sensitivity to sunlight and must take appropriate precautions. Also recommend probiotics while taking the antibiotic. She voiced understanding agreement. 7. Encouraged incentive spirometry 8. Continue postoperative medical management per medicine 9. Disposition: Plan will be for possible discharge home today if she is doing overall well and tolerates therapy, pain is well controlled and medically stable. She was a complete revision and I would like assessment by physical therapy for appropriate discharge planning. She does have outpatient physical therapy established. She will follow-up with her primary care physician with outpatient lab work. We will need to change her postoperative follow-up with [facility] from Tuesday May 17, 2022 to Friday. Case management involved with postoperative appointments. Patient will follow-up per postoperative worksheet. She would like her prescriptions E scribbree Rincon in [facility]. Patient states she has the ferrous sulfate and folic acid at home that she will continue. I have reviewed the [place] Automated Rx Reporting System (OARRS) report for this patient for refill pattern and other prescriber involvement as part of the appropriate surveillance for the provision of acute and chronic controlled medications. The report was requested and reviewed on the date of this entry, and was considered in the prescribing process This dictation was created using voice recognition software. Phonetic and/or grammatical errors may exist. Orders: ferrous sulfate, Start: 05/08/22 12:00:00 EST, Dose = 325 mg, = 1 tab(s), Oral, BID, 05/08/22 8:28:00 EST folic acid, Start: 05/08/22 9:00:00 EST, Dose = 1 mg, = 1 tab(s), Oral, qDay, 05/08/22 8:28:00 EST Digitally Signed by ALIX FONSECA PA-C on 05/08/2022 08:35 AM [facility] 05-08-2022 Note Date of Service May 08, 2022 Subjective The patient was sitting in bed upon examination. Patient denies any chest pain, shortness of breath, dizziness, lightheadedness, nausea or vomiting, or calf pain. No adverse overnight events. Pain has been controlled on medications. Patient overall is doing very well this morning. She states she has very little pain. She has been on nasal O2 1.5 L. She denies any shortness of breath. She has been using ferrous sulfate and folic acid at home. She did have some preoperative anemia. Patient was a complete revision and she had cultures which have been with no growth or organisms. She is currently on doxycycline. She has significant allergies and cannot take other narcotics. She tolerates Tylenol with codeine and ibuprofen. Objective Vitals and Measurements T: 36.5 C (Oral) TMIN: 35.8 C (Temporal Artery) TMAX: 36.7 C (Oral) HR: 65(Monitored) RR: 16 BP: 123/75 SpO2: 98% HT: 162.6 cm WT: 75.5 kg BMI: 28.56 Intake and Output 7AM Yesterday to 7AM Today Intake and Output (Last 24 hours) Intake Administration Information 1421.56 Supplement Intake 240.00 Output Intra-Op EBL 250.00 Total Summary Total Intake 1661.56 Total Output 250.00 Fluid Balance 1411.56 Physical Exam Vital signs stable, afebrile: Currently on 1.5 L nasal O2. SCDs and NELLY hose are in place bilaterally Patient is able to plantarflex and dorsiflex actively Sensation is intact to saphenous, sural, superficial and deep peroneal, and tibial distribution Dressing is clean dry and intact Negative signs and symptoms of DVT, negative Homans bilaterally Weight Dosing Weight: 75.5 kg (05/07/22) Dosing Weight: 75.5 kg (05/07/22) Medications Medications (32) Active Scheduled: (19) aspirin 81 mg Chewable 81 mg 1 tab(s), Oral, BIDM atorvastatin 10 mg tablet 10 mg 1 tab(s), Oral, qDay bisacodyl 5 mg EC tablet 10 mg 2 tab(s), Oral, Once docusate sodium 100 mg Capsule 100 mg 1 cap(s), Oral, BID docusate-senna (Senokot S) 50 mg-8.6 mg Tablet 2 tab(s), Oral, BID doxycycline hyclate 100 mg Capsule 100 mg 1 cap(s), Oral, q12h famotidine 20 mg tablet 20 mg 1 tab(s), Oral, qDay ferrous sulfate 325 mg Tablet 325 mg 1 tab(s), Oral, BID folic acid 1 mg tablet 1 mg 1 tab(s), Oral, qDay levothyroxine 112 mcg tablet 112 mcg 1 tab(s), Oral, qDayAC lisinopril 20 mg tablet 30 mg 1.5 tab(s), Oral, Daily loratadine 10 mg Tablet 10 mg 1 tab(s), Oral, qDay magnesium hydroxide 8% Suspension 30 mL UD 30 mL, Oral, Daily montelukast 10 mg Tablet 10 mg 1 tab(s), Oral, qDay multivitamin (Myadec) with minerals Therapeutic Multiple Vitamins with Minerals Tablet 1 tab(s), Oral, qDayM ondansetron 2 mg/ 1 mL 2 mL INJ 4 mg 2 mL, IV Push, q8h pantoprazole 20 mg EC tablet 40 mg 2 tab(s), Oral, qDayAC pregabalin 25 mg capsule + pregabalin 50 mg capsule 225 mg, Oral, qHS pregabalin 50 mg capsule 150 mg 3 cap(s), Oral, qDay Continuous: (2) Lactated Ringers 1,000 mL 1,000 mL, Intravenous, 100 mL/hr Lactated Ringers 1000 mL 1,000 mL, Intravenous, 20 mL/hr PRN: (11) acetaminophen 325 mg Tablet 650 mg 2 tab(s), Oral, q4h acetaminophen-codeine 300mg-30 mg tablet 2 tab(s), Oral, q6hr acetaminophen-codeine 300mg-30 mg tablet 1 tab(s), Oral, q6hr diphenhydramine 25 mg tablet 25 mg 1 tab(s), Oral, q6h diphenhyDRAMINE 50 mg/mL (1 mL) INJ 25 mg 0.5 mL, IV Push, q6h ibuprofen 600 mg tablet 600 mg 1 tab(s), Oral, q6h ketorolac 30 mg/mL (1 mL) vial 15 mg 0.5 mL, IV Push, q6h morphine 2 mg/mL 1 mL syringe 2 mg 1 mL, IV Push, q1h ondansetron 2 mg/ 1 mL 2 mL INJ 4 mg 2 mL, IV Push, q8h prochlorperazine 10 mg/2 mL vial 5 mg 1 mL, IV Push, q6h sodium biphosphate-sodium phosphate 19 gm-7 gm Enema 133 mL, Rectal, qDay Lab Results 05/08 05:22 WBC: 10.0 Hgb: 9.5 L Hct: 28.1 L Platelet: 187 Neutrophil %: 78.8 Glucose Level: 107 Sodium Level: 144 Potassium Level: 5.0 BUN: 27 H Creatinine Lvl (s): 0.82 EKG No qualifying data available. Assessment/Plan 1. Hypertension 2. Hyperlipemia 3. Hypothyroidism 4. Fibromyalgia 5. Status post revision of total replacement of right knee 1. Status post right revision total knee arthroplasty postop day #1 2. Continue pain medications: Tylenol with codeine and ibuprofen 3. DVT prophylaxis: Take 81 mg aspirin twice daily with food for 4 weeks postoperatively for DVT prophylaxis. Patient will continue with her pantoprazole and we did discuss potential for stomach irritation with both the ibuprofen and aspirin. I did recommend she take those separate from one another. If she does have stomach irritation I would like her to stop the ibuprofen. She voiced understanding agreement. 4. Physical therapy: Weightbearing as tolerated with walker 5. H & H: 9.5/28.1, asymptomatic. Postoperative anemia secondary to acute blood loss from surgery without intraoperative complications. Preoperatively patient was at 11.2 with her hemoglobin on April 29, 2022. She takes at home ferrous sulfate and folic acid. This was placed for orders to begin in the hospital and she will continue with this medication on discharge. I also recommend postoperative follow-up with primary care physician with repeat lab work and continued follow with her anemia. 6. Continue antibiotics for 2 weeks postoperatively while following cultures: Currently no organisms or growth on cultures. She will be on doxycycline for 2 weeks postoperatively. Discussed with the patient side effects including increased sensitivity to sunlight and must take appropriate precautions. Also recommend probiotics while taking the antibiotic. She voiced understanding agreement. 7. Encouraged incentive spirometry 8. Continue postoperative medical management per medicine 9. Disposition: Plan will be for possible discharge home today if she is doing overall well and tolerates therapy, pain is well controlled and medically stable. She was a complete revision and I would like assessment by physical therapy for appropriate discharge planning. She does have outpatient physical therapy established. She will follow-up with her primary care physician with outpatient lab work. We will need to change her postoperative follow-up with [facility] [place] from Tuesday May 17, 2022 to Friday. Case management involved with postoperative appointments. Patient will follow-up per postoperative worksheet. She would like her prescriptions E nanette Rincon in [facility]. Patient states she has the ferrous sulfate and folic acid at home that she will continue. I have reviewed the [place] Automated Rx Reporting System (OARRS) report for this patient for refill pattern and other prescriber involvement as part of the appropriate surveillance for the provision of acute and chronic controlled medications. The report was requested and reviewed on the date of this entry, and was considered in the prescribing process This dictation was created using voice recognition software. Phonetic and/or grammatical errors may exist. Orders: ferrous sulfate, Start: 05/08/22 12:00:00 EST, Dose = 325 mg, = 1 tab(s), Oral, BID, 05/08/22 8:28:00 EST folic acid, Start: 05/08/22 9:00:00 EST, Dose = 1 mg, = 1 tab(s), Oral, qDay, 05/08/22 8:28:00 EST Digitally Signed by ALIX FONSECA PA-C on 05/08/2022 08:35 AM [facility] 05-07-2022 Note ORIGINAL EXAMINATION: TWO XRAY VIEWS OF THE RIGHT KNEE 05/07/2022 1:22 pm COMPARISON: None at our institution. HISTORY: ORDERING SYSTEM PROVIDED HISTORY: Reason for Exam: Status Post Arthroplasty FINDINGS: Postsurgical changes status post total knee arthroplasty are noted without evidence of an acute fracture, dislocation, or hardware failure. Is soft tissue swelling and subcutaneous emphysema is seen and expected in the postsurgical setting. No unexpected radiopaque foreign body is identified. IMPRESSION: Expected postsurgical changes status post total knee arthroplasty. Interpreted by: Raj Dalton MD Preliminary Report By: Raj Dalton MD Electronically signed By Raj Dalton MD Dictated Date: 05/07/2022 1:36:53 PM Prelim Date: 05/07/2022 1:37:39 PM Sign Date: 05/07/2022 1:37:39 PM Ordering Provider: [facility] 05-07-2022 Note ORIGINAL EXAMINATION: TWO XRAY VIEWS OF THE RIGHT KNEE 05/07/2022 1:22 pm COMPARISON: None at our institution. HISTORY: ORDERING SYSTEM PROVIDED HISTORY: Reason for Exam: Status Post Arthroplasty FINDINGS: Postsurgical changes status post total knee arthroplasty are noted without evidence of an acute fracture, dislocation, or hardware failure. Is soft tissue swelling and subcutaneous emphysema is seen and expected in the postsurgical setting. No unexpected radiopaque foreign body is identified. IMPRESSION: Expected postsurgical changes status post total knee arthroplasty. Interpreted by: Raj Dalton MD Preliminary Report By: Raj Dalton MD Electronically signed By Raj Dalton MD Dictated Date: 05/07/2022 1:36:53 PM Prelim Date: 05/07/2022 1:37:39 PM Sign Date: 05/07/2022 1:37:39 PM Ordering Provider: [facility] 05-07-2022 Anesthesiology Consult note Patient: STACIA GOMEZ Age: 66 years Sex: Female : 1955 Associated Diagnoses: None Author: CYRUS GUADARRAMA APRN-SERVICING REP Preoperative Information Anesthesia history Patient's history: negative. Family's history: negative. Health Status Allergies: Allergic Reactions (Selected) Severity Not Documented Aloe vera topical- No reactions were documented. Coconut- No reactions were documented. Glutens- Constipation. HYDROmorphone- No reactions were documented. Lanolin- No reactions were documented. Monistat Derm- Hives. OxyCONTIN- No reactions were documented. Penicillin- Hives. Percocet 5/325- No reactions were documented. Sulfa drug- Hives. TraMADol- No reactions were documented. Vitamin B12 (Methylcobalamin)- Hives. Nonallergic Reactions (Selected) Severity Not Documented Erythromycin- No reactions were documented. PredniSONE- Candidosis., Allergies (14) ActiveReaction aloe vera topicalNone Documented coconutNone Documented erythromycinNone Documented Glutensconstipation HYDROmorphoneNone Documented LanolinNone Documented Monistat Dermhives OxyCONTINNone Documented penicillinhives Percocet 5/325None Documented predniSONECandidosis sulfa drughives traMADolNone Documented Vitamin B12 (Methylcobalamin)hives Current medications: (Selected) Inpatient Medications Ordered Betadine 10% topical solution: 17.5 mL, mL/hr, Topical (INT), PREOP pharm Decadron: 10 mg, 1 mL, IV Push, AsDirected Kefzol: 2 gram(s), 200 mL/hr, IV Piggyback, PREOP pharm LR 1000 mL: 20 mL/hr, Intravenous, Stop: 05/08/22 17:59:00 EST Naropin 25 mg + Toradol 15 mg + EPINEPHrine 1 mg/mL injectable solution 0.3 m mg, 5 mL, 0 mL/hr, Other, PREOP pharm Naropin 25 mg + Toradol 15 mg + EPINEPHrine 1 mg/mL injectable solution 0.3 m mg, 5 mL, 0 mL/hr, Other, PREOP pharm tranexamic acid 1 g / 100 mL 0.7% NaCl PMX: 1 gram(s), 100 mL, 300 mL/hr, IV Piggyback, AsDirected tranexamic acid 1 g / 100 mL 0.7% NaCl PMX: 1 gram(s), 100 mL, 300 mL/hr, IV Piggyback, AsDirected Documented Medications Documented Dominique OTC: 30 mg, Oral, qDay, 0 Refill(s) Centrum oral tablet: 1 tab(s), Oral, Daily Synthroid 112 mcg (0.112 mg) oral tablet: 112 mcg, 1 tab(s), Oral, qDayAC amitriptyline 25 mg oral tablet: 0 Refill(s) lisinopril 30 mg oral tablet: 30 mg, 1 tab(s), Oral, Daily, 90 tab(s), 0 Refill(s) montelukast 10 mg oral tablet: 10 mg, 1 tab(s), Oral, qDay, 0 Refill(s) pantoprazole 40 mg oral enteric coated tablet: 40 mg, 1 tab(s), Oral, qDayAC, 90 tab(s), 0 Refill(s) pravastatin 40 mg oral tablet: 40 mg, 1 tab(s), Oral, qHS, 90 tab(s), 0 Refill(s) pregabalin 150 mg oral capsule: 150 mg, 1 cap(s), Oral, qDay, 0 Refill(s) pregabalin 225 mg oral capsule: 225 mg, 1 cap(s), Oral, qHS, 180 cap(s), 0 Refill(s), Medications (8) Active Scheduled: (7) ceFAZolin 2 gram(s), IV Piggyback, PREOP pharm dexamethasone 10 mg/mL (1mL) SDV 10 mg 1 mL, IV Push, AsDirected povidone iodine topical 17.5 mL, Topical (INT), PREOP pharm ropivacaine 25 mg + ketorolac 15 mg + epinephrine 0.3 mg 25 mg 5 mL, Other, PREOP pharm ropivacaine 25 mg + ketorolac 15 mg + epinephrine 0.3 mg 25 mg 5 mL, Other, PREOP pharm tranexamic acid PMX 1 gram(s) 100 mL, IV Piggyback, AsDirected tranexamic acid PMX 1 gram(s) 100 mL, IV Piggyback, AsDirected Continuous: (1) Lactated Ringers 1000 mL 1,000 mL, Intravenous, 20 mL/hr PRN: (0) Problem list: Active Problems (8) Charcot Eva Tooth muscular atrophy Fibromyalgia GERD (gastroesophageal reflux disease) Daniel's disease Hyperlipemia Hypertension Hypothyroidism Osteoarthritis Histories Past Medical History: No active or resolved past medical history items have been selected or recorded. Family History: Cancer Sister Mother Cardiac pacemaker Brother Hypertension Mother Father Stroke Father Heart attack Brother Procedure history: Total knee arthroplasty ([id number]) in 2020 at 65 Years. Comments: 04/29/2022 10:51 SHARON Mclain LEFT Total knee arthroplasty ([id number]) in 2014 at 59 Years. Comments: 04/29/2022 10:52 SHARON Mclain RIGHT Laparoscope ([id number]). Tonsillectomy and adenoidectomy (341729744). Extremity (172153407). Social History Social & Psychosocial Habits Alcohol 06/22/2019 Use: Never Substance Abuse 06/22/2019 Use: Never Tobacco 06/22/2019 Tobacco Use: Never (less than 100 in l Home/Environment 04/29/2022 Domestic Concerns None Lives In Single level home Spouse Name RACHAEL Marital Status of Patient if Patient Independent Adult: Nutrition/Health 04/29/2022 Type of diet: Regular Eating Difficulties None . Physical Examination Vital Signs 05/07/2022 9:13 EST Apical Heart Rate 66 bpm Respiratory Rate 13 br/min LOW Systolic Blood Pressure 123 mmHg Diastolic Blood Pressure 74 mmHg 05/07/2022 8:12 EST Temperature Temporal Artery 36.3 DegC Peripheral Pulse Rate 78 bpm Respiratory Rate 15 br/min Systolic Blood Pressure NBP 129 mmHg Diastolic Blood Pressure NBP 78 mmHg Vital Signs(last 24 hrs) Last Charted Resp Rate L 13br/min (MAY 07 09:13) [id number] mmHg (MAY 07 08:12) DBP78 mmHg (MAY 07 08:12) Measurements from flowsheet : Measurements 05/07/2022 8:12 EST Height 162.6 cm Admission Weight 75.5 kg [place] Body Weight 54.74 kg Admission Body Mass Index 28.56 m2 05/07/2022 8:11 EST Body Mass Index In Error kg/m2 (In Error) Pain assessment: Pain Assessment 05/07/2022 8:12 EST Primary Pain Location Knee Primary Pain Laterality Right Primary Pain Intensity 10 Pain Scale Type 0-10 Pain scale . General: Alert and oriented. Airway: Mallampati classification: II (soft palate, fauces, uvula visible). Dentition Evaluation: Denies loose/chipped teeth. Respiratory: Lungs are clear to auscultation, Respirations are non-labored. Cardiovascular: Normal rate, Regular rhythm. Neurologic: Alert, Oriented. Review / Management Results review: No qualifying data available , Lab results 05/07/2022 9:13 EST Apical Heart Rate 66 bpm Respiratory Rate 13 br/min LOW Systolic Blood Pressure 123 mmHg Diastolic Blood Pressure 74 mmHg Time Out Procedure Verified Time Out Procedure Site Verified Yes Time Out Procedure Site Marked Yes Oxygen Therapy Nasal cannula 0L-6L Oxygen Saturation 99 % Oxygen Flow Rate 3 Consent Form Signed Yes Bedside Procedure Nerve Block Provider #1 Bedside Time Out Claudia Cloud RN Provider #2 Bedside Time Out CYRUS GUADARRAMA APRN-SERVICING REP Patient ID Band on and Verified Yes 05/07/2022 8:46 EST SN - Preop - CTm Pt Ready for OR/Proced 05/07/2022 8:40 05/07/2022 8:40 EST celecoxib 400 mg mg Lactated Ringers Injection 1,000 mL mL 05/07/2022 8:39 EST famotidine Not Done: Other (Not Done) 05/07/2022 8:38 EST citric acid-sodium citrate Not Done: Other (Not Done) 05/07/2022 8:36 EST Individuals Taught Patient, Spouse Learning Readiness Willing to learn Barriers to Learning None evident Teaching Method Explanation Preferred Written Language Citizen Of [place] Family/Caregiver Prefer Written Language Citizen [place] Preferred Spoken Language Citizen Of [place] Family/Caregiver Prefer Spoken Language Citizen Of [place] Pre Procedure/Surgery Education Appropriate expectations Ed-Communication Verbalizes/Nonverbally indicates understanding Ed-DVT Prophylaxis Verbalizes/Nonverbally indicates understanding 05/07/2022 8:12 EST Height 162.6 cm Admission Weight 75.5 kg [place] Body Weight 54.74 kg Admission Body Mass Index 28.56 m2 Temperature Temporal Artery 36.3 DegC Peripheral Pulse Rate 78 bpm Respiratory Rate 15 br/min Systolic Blood Pressure NBP 129 mmHg Diastolic Blood Pressure NBP 78 mmHg Primary Pain Location Knee Primary Pain Laterality Right Primary Pain Intensity 10 Pain Scale Type 0-10 Pain scale Nail Bed Color [place] Capillary Refill < 2 seconds Heart Rhythm Regular Edema Generalized None Oxygen Therapy Room air Oxygen Saturation 97 % Abdomen Description Non-distended, Soft Bowel Sounds All Quadrants Present Urinary Elimination Voiding, no difficulties Skin Temperature Warm Skin Description [place], Normal for ethnicity, Dry Skin Integrity Intact Skin Moisture General Dry IV Present Present Wrist Left 05/07/2022 20 gauge Peripheral IV Activity: Insert new site Peripheral IV Site Condition: No complications Peripheral IV Equipment: Manual, Extension set, PRN Adaptor Peripheral IV Number of Attempts: 2 Neurological Symptoms Numbness, Tingling Extremity Movement Equal Characteristics of Speech Clear Level of Consciousness Alert Strength All Extremities Strong Affect/Behavior Appropriate Orientation Oriented x 4 Allergies Yes Treasury Assistant On Yes Consent Form Signed Yes Patient Dressed In Hospital gown CHG Preoperative Wash/Wipe Night before procedure, Day of procedure Preop Nasal Swab Povidone-Iodine CHG Skin Prep Completed for Eligible Surgery History & Physical Update On Chart Yes History & Physical On Chart Yes Obstructive Sleep Apnea Assess Completed Yes Orientation Assessment Oriented x 4 Belongings At Bedside Walker Activity Status ADL Ambulating in carrera, Ambulating in room, Awake, Repositions self, Resting Assistive Device Walker SCD On/Re-applied left knee high Antiembolism Stocking On/Re-applied left thigh high NPO Status Maintained Standard Safety ID band on, Allergy Band on, Call device within reach, Bed in low position, Wheels locked, Visitor at bedside, Safety level maintained Allergy Band on and Verified Yes Patient ID Band on and Verified Yes Implants Verified Yes Pacemaker/AICD Verified Yes Anesthesia Consent Signed Yes Blood Consent Signed Yes Last Fluid Intake 05/06/2022 21:30 Last Food Intake 05/06/2022 18:30 Last Void 05/07/2022 8:20 Patient Cleared for Surgery By NADINE SINGH APRN 05/07/2022 8:11 EST Privacy Restrictions Requested None Body Mass Index In Error kg/m2 (In Error) Vilma [id number] [facility] Video Viewed No Teaching Evaluation No further teaching needed Admission Note-Nursing Same Day Patient History (Modified) 05/07/2022 7:56 EST SN - Preop - CTm Pt in SDS Room 05/07/2022 7:56 . Assessment and Plan [place] [employer]esthesiologists (ASA) physical status classification: Class III. Anesthetic Preoperative Plan Anesthetic technique: Spinal. Regional: Spinal. Postoperative pain management: adductor canal block. Risks discussed: nausea, vomiting, headache, hypotension, allergic reaction, serious complications. Informed consent: signed by patient. Digitally Signed by CYRUS GUADARRAMA APRN-SERVICING REP on 05/07/2022 09:17 AM [facility] Note HNO ID: [id number] Author: Brandt Josue MD Service: ? Author Type: Physician Type: Progress Notes Filed: 03/01/2022 3:21 PM Note Text: CC: neuropathy fu; last seen 9 months ago S: Neuropathy started 7 years ago. Was taking vitamins at that time. No hx of gastric bypass, chrons disease. Currently taking: pregabalin 150 mg AM, 225 mg PM. Duloxetine 60 mg daily The duloxetine helped in the beginning, no longer helpful. Her current symptoms. She hurts all the time with the fibromyalgia, so stiff, hard to get out of bed in the morning. It hurts everywhere. Nothing specific in her feet or legs. Vitals: BP 131/79 Pulse 75 Temp 36.9 ?C (98.5 ?F) Resp 16 Ht 162.6 cm (5' 4 ) Wt 75.3 kg (166 lb) SpO2 97% BMI 28.49 kg/m? Gen: well appearing, in no acute distress MSK: reduced bulk below knees BL. Deltoid Triceps Biceps Wrist ext. Hand intrinsic Hip flexion Knee flexion Knee Ext. Rayo. Flex Pl. flex Right 5 5 5 5 5 5 5 5 5 5 Left 5 5 5 5 5 5 5 5 5 5 Gait: antalgic w/ cane EMG complete Electrodiagnostic examination of the left upper and lower extremities demonstrates findings most consistent with: 1. 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 2. Left ulnar neuropathy, nonlocalizable on the current study, mild in degree electrically, without active denervation. Assessment/Plan: Sensorimotor axonal polyneuropathy, relatively mild based on EMG findings, non localizable ulnar neuropathy (mild in degree electrically) She no longer has foot drop findings on exam. Diffuse body pain, with current diagnosis of fibromyalgia For her neuropathic symptoms she was taking 600 mg gabapentin twice daily, she unable to tolerate higher doses. She then switched to pregabalin d/t stomach issues w/ gpn Last appointment added prescription for duloxetine for further control of her symptoms; it is not helping her symptoms. Current medications are: pregabalin 150 mg AM, 225 mg PM. Duloxetine 60 mg daily She has done PT, aquatic therapy in the past. Labs were unremarkable: spep/lucie, syphilis, folate, b12, thiamine Copper was not drawn [facility] comprehensive neuropathies panel unremarkable 10/19 (1 vus in AR gene) Overall, this is likely an idiopathic sensorimotor polyneuropathy, relatively mild in degree, but her main problems relate more to her diffuse body pain and fibromyalgia and does not have neuropathy specific symptoms in her feet and legs. Plan: Continue pregabalin Discontinue duloxetine (was not helping) Start amitriptyline 25 mg HS We discussed sleep hygiene measures to address her fatigue and hypersomnolence. Referral rheumatology for fibromyalgia and OA. RTC 6 months [facility] 03-01-2022 History of Presen t illness Narrative CC: neuropathy fu; last seen 9 months ago S: Neuropathy started 7 years ago. Was taking vitamins at that time. No hx of gastric bypass, chrons disease. Currently taking: pregabalin 150 mg AM, 225 mg PM. Duloxetine 60 mg daily The duloxetine helped in the beginning, no longer helpful. Her current symptoms. She hurts all the time with the fibromyalgia, so stiff, hard to get out of bed in the morning. It hurts everywhere. Nothing specific in her feet or legs. Vitals: BP 131/79 Pulse 75 Temp 36.9 C (98.5 F) Resp 16 Ht 162.6 cm (5' 4 ) Wt 75.3 kg (166 lb) SpO2 97% BMI 28.49 kg/m Gen: well appearing, in no acute distress MSK: reduced bulk below knees BL. Deltoid Triceps Biceps Wrist ext. Hand intrinsic Hip flexion Knee flexion Knee Ext. Rayo. Flex Pl. flex Right 5 5 5 5 5 5 5 5 5 5 Left 5 5 5 5 5 5 5 5 5 5 Gait: antalgic w/ cane EMG complete Electrodiagnostic examination of the left upper and lower extremities demonstrates findings most consistent with: 1. 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 2. Left ulnar neuropathy, nonlocalizable on the current study, mild in degree electrically, without active denervation. Assessment/Plan: Sensorimotor axonal polyneuropathy, relatively mild based on EMG findings, non localizable ulnar neuropathy (mild in degree electrically) She no longer has foot drop findings on exam. Diffuse body pain, with current diagnosis of fibromyalgia For her neuropathic symptoms she was taking 600 mg gabapentin twice daily, she unable to tolerate higher doses. She then switched to pregabalin d/t stomach issues w/ gpn Last appointment added prescription for duloxetine for further control of her symptoms; it is not helping her symptoms. Current medications are: pregabalin 150 mg AM, 225 mg PM. Duloxetine 60 mg daily She has done PT, aquatic therapy in the past. Labs were unremarkable: spep/lucie, syphilis, folate, b12, thiamine Copper was not drawn [facility] comprehensive neuropathies panel unremarkable 10/19 (1 vus in AR gene) Overall, this is likely an idiopathic sensorimotor polyneuropathy, relatively mild in degree, but her main problems relate more to her diffuse body pain and fibromyalgia and does not have neuropathy specific symptoms in her feet and legs. Plan: Continue pregabalin Discontinue duloxetine (was not helping) Start amitriptyline 25 mg HS We discussed sleep hygiene measures to address her fatigue and hypersomnolence. Referral rheumatology for fibromyalgia and OA. RTC 6 months documented in this encounter [facility] 07-02-2021 Note HNO ID: [id number] Author: Brandt Josue MD Service: ? Author Type: Physician Type: Progress Notes Filed: 07/02/2021 9:42 AM Note Text: UNIVERSAL PROTOCOL / SAFETY CHECKLIST Procedure to be Performed: EMG Sign In: A Moment of CARE was completed. Personnel directly involved with the procedure wore the appropriate PPE (Personal Protective Equipment). Patient/Surrogate Stated/Verified: PATIENT VERIFIED(optional for EMERGENT procedures): Patient name, Date of , Relevant allergies and The intended procedure Time Out Communication: Intended patient and procedure match the source documents. Correct side/site marked and visible. Sign Out: SIGN OUT (optional for EMERGENT procedures): Post-procedure follow-up management communicated and Plan of Care Visit completed when applicable. Marietta Josue MD [facility] 04-20-2021 Note HNO ID: [id number] Author: Brandt Josue MD Service: ? Author Type: Physician Type: Progress Notes Filed: 07/02/2021 9:40 AM Note Text: HPI: This is Ms. Stone Gomez a 65 year old female from who presents to the [facility] neurology department with a chief complaint of neuropathy Referral is from [facility]. She has bilateral foot drop, and related unsteady gait. She walks with a cane. She has tingling in both legs and feet, worse on the left lateral leg, and burning pains which are worse higher up in the leg around the knee area. Those symptoms tend to be worse at night. She has numbness in bilateral lower legs. She noticed her symptoms around 5 years ago after she had knee replacement surgery on the right. She has high arched feet and hammertoes. She has no family history of neuropathy. She does note that her father walked abnormally in his older age, but she had attributed that to arthritis in the past. She has a sister may have had some recent onset of gait difficulty but she is not sure about it. She is not in alcohol on a regular basis. She has no history of diabetes. She had extensive work-up in the past with a neurologist in [place] and was told that she had a regular neuropathy, she was clarity in her diagnosis as well as consideration of further treatment of her symptoms. Prior neurologist: sandra kapoor, records reviewed EMG 2020 bilateral s1 radiculopathy and sensorimotor PN - mixed type and mild to moderate in degree Had afo ordered in past. Labs: b12, folate, heavy metal, hiv, RF to be performed no results available. REIMBURSEMENT CONSULTANT negative, baird negative, heavy metals normal Dr olmedo did both emgs. Both done at [facility]. She was told that she did have neuropathy, she has CMT. She doesn't remember if any labs were drawn. Prior medications: gpn 600 mg bid. She declined TCA trial PMH: HLD, hypothyroid, HTN, lumbar spondylosis, fatty liver, fibromyalgia, polyneuropathy. R knee replacement. Medications: Current Outpatient Medications Medication Sig Dispense Refill - INV VITAMIN D3 5000 UNITS CAPSULE (IRB [id number]) Take 5,000 Units by mouth once daily. For Investigational Drug Use Only. PI: Margarita Pérez, PhD. Take one capsule by mouth daily for 3 months prior to surgery and 3 months after surgery. - therapeutic multivitamin (THERA) tablet Multivitamins,Therapeutic Active 1 TABLET DAILY October 05, 2013 1:48pm - Ibuprofen 200 mg cap Take 400 mg by mouth every 6 hours as needed. - fexofenadine (DOMINIQUE ALLERGY) 180 mg tablet Dominique Allergy Active 1 TAB DAILY February 15, 2015 10:13am - gabapentin (NEURONTIN) 300 mg capsule Take 300 mg by mouth twice daily. - levothyroxine (SYNTHROID) 112 mcg tablet 112 mcg. - lisinopril (ZESTRIL, PRINIVIL) 20 mg tablet 20 mg once daily. - pravastatin (PRAVACHOL) 40 mg tablet 40 mg once daily. - pantoprazole DR (PROTONIX) 40 mg tablet 40 mg once daily. - montelukast (SINGULAIR) 10 mg tablet 10 mg. (Patient not taking: Reported on 04/20/2021 ) No current facility-administered medications for this visit. Allergies: ALLERGIES Not on File Social History: Social History Tobacco Use - Smoking status: Not on file Substance Use Topics - Alcohol use: Not on file - Drug use: Not on file Family History: No family history on file. ROS: A complete review of systems was performed. All systems negative other than those mentioned in HPI. Physical Exam: Vitals: There were no vitals taken for this visit. General appearance: no acute distress. Neurological Exam: MSE: Alert and oriented to person, place, and time. Speech is fluent without dysarthria or aphasia. Recall is intact to recent and remote events. Attention and concentration are intact. Fund of knowledge is intact. CN: Pupils equally round and reactive to light. Extraoccular muscles intact. Visual garcia full. Facial sensation deferred d/t covid. Facial muscles symmetric. Hearing intact to voice. Tongue/palate deferred d/t covid. Shoulder shrug 5/5 bilaterally. MSK: reduced bulk below knees BL. Deltoid Triceps Biceps Wrist ext. Hand intrinsic Hip flexion Knee flexion Knee Ext. Rayo. Flex Pl. flex Right 5 5 5 5 5 5 4+ 4+ 4 4- Left 5 5 5 5 5 5 4+ 4+ 4 4- Sensation: reduced to light touch, pinprick, and vibration from below mid shins BL Reflexes: R L Biceps 2 0 Triceps 2 2 Brachioradialis 0 0 Patellar 0 0 Achilles 0 0 Toes mute bilaterally Cerebellar: Intact finger to nose bilaterally. Gait: steppage. Labs: Outside records reviewed as above. Assessment/Plan : . Bilateral foot drop, pes cavus, hammertoes, no known family history of neuropathy. Associated neuropathic pain and tingling. 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 Neuropathy labs ordered. EMG ordered to further characterize. If other causes are eliminated, would proceed to genetic test (more content not included)... [facility] Evaluation + Plan note Future Appointments Appointment Date:05/10/2022 08:30:00 AM Scheduled Provider: Location:[facility] Appointment Type:PT Outpatient Evaluation [facility] documented in this encounter [facility] course Narrative No data available for this section [facility] Hospital Discharge instructions No data available for this section [facility] Progress note No data available for this section [facility] Summary Purpose Family History No Family History Records FoundNo Family History Records FoundNo Family History Records FoundNo Family History Records Found Advance Directives No Advanced Directives Records FoundNo Advanced Directives Records FoundNo Advanced Directives Records FoundNo Advanced Directives Records Found Reason for Referral Specialty Diagnoses / Procedures Referred By Marcelino smith Referred To Contact Rheumatology Diagnoses Fibromyalgia Osteoarthritis of carpometacarpal (CMC) joint of left thumb, unspecified osteoarthritis type Procedures CONSULT TO RHEUM/IMMUN DISEASE OFFICE/OUTPATIENT NEW HIGH MDM 60-74 MINUTES Brandt Josue MD [address] [facility] [address] [place] [address] Referral ID Status Reason Start Date Expiration Date Visits Requested Visits Authorized [id number] Authorized PCP Requested Referral 03/01/2022 03/01/2023 1 1 Additional Source Comments INFORMATION SOURCE (unrecogn ized section and content) DATE CREATED AUTHOR AUTHOR'S ORGANIZ ATION 03/02/2022 [facility] DATE CREATED AUTHOR AUTHOR'S ORGANIZ ATION 07/16/2022 [facility] ([place]) DATE CREATED AUTHOR AUTHOR'S ORGANIZ ATION 04/19/2023 [facility] nter Source Comments (unrecognize d section and content) In the event this informatio n is protected by the Federal Confidentiality of Alcohol and Drug Abuse Patient Records regulations: The Federal rules restrict any use of the information to criminally investigate or prosecute any alcohol or drug abuse patient.[facility] the event this information is protected by the Federal Confidentiality of Alcohol and Drug Abuse Patient Records regulations: The Federal rules restrict any use of the information to criminally investigate or prosecute any alcohol or drug abuse patient.[facility] the event this information is protected by the Federal Confidentiality of Alcohol and Drug Abuse Patient Records regulations: The Federal rules restrict any use of the information to criminally investigate or prosecute any alcohol or drug abuse patient.[facility] the event this information is protected by the Federal Confidentiality of Alcohol and Drug Abuse Patient Records regulations: The Federal rules restrict any use of the information to criminally investigate or prosecute any alcohol or drug abuse patient.[facility] Reason for Visit (unrecogniz ed section and content) Care Teams (unrecognized sec tion and content) Fixing Carpenter Relationship Specialty Start Date End Date Nadine Singh APRN.PLASTER CASTER [address] [place] [address] PCP - General Family Medicine 03/13/22 Care Team (unrecognized sect ion and content) Care Team Personnel Name: Aaliayh, Accounts Receivable Representative Angelina PT Position: P3 Scheduling - Grounds Restoration Specialist Advanced Member Role: Other Name: NADINE SINGH APRN Member Role: Primary Care Physician Address: Address: [address] [place] [address] Care Team Related Persons Name: RACHAEL GOMEZ Address: Home [address] [place] [address] Care Team Personnel Name: Pam Fischer Clerk Angelina PT Position: P3 Scheduling - Grounds Restoration Specialist Advanced Member Role: Other Name: NADINE SINGH APRN Member Role: Primary Care Physician Address: Address: [address] [place] [address] Care Team Related Persons Name: RACHAEL GOMEZ Address: Home [address] Care Team Personnel Name: Pam Fischer Clerk Angelina PT Position: P3 Scheduling - Grounds Restoration Specialist Advanced Member Role: Other Name: NADINE SINGH APRN Member Role: Primary Care Physician Address: Address: [address] [place] [address] Care Team Related Persons Name: RACHAEL GOMEZ Address: Home [address] FOR RECORDS PERTAINING TO PATIENTS WHO ARE OR HAVE BEEN ENROLLED IN A CHEMICAL DEPENDENCY/SUBSTANCEABUSE PROGRAM, SOME INFORMATION MAY BE OMITTED. This clinical summary was aggregated from multiple sources. Caution should be exercised in using it in the provision of clinical care. This summary normalizes information from multiple sources, and as a consequence, information in this document may materially change the coding, format and clinical context of patient data. In addition, data may be omitted in some cases. CLINICAL DECISIONS SHOULD BE BASED ON THE PRIMARY CLINICAL RECORDS. [facility] [employer] [facility]. provides no warranty or guarantee of the accuracy or completeness of information in this document.
[2023-07-14 17:40] LABS: Absolute Lymphocyte Count 1.53 X10^3/uL (0.83-4.51); Basophil# 0.03 X10^3/uL; Basophil% 0.6 % (0-1); Eosinophil# 0.15 X10^3/uL; Eosinophils% 2.8 % (0-5); Hematocrit 38.3 % (37-47); Hemoglobin 12.1 g/dL (12.0-15.0); Lymphocyte # 1.53 X10^3/ul (0.83-4.51); Mean Corp Hgb Conc 31.6 g/dL (32-36); Mean Corpuscular Hgb 29.1 pg (27.0-32.0); Mean Corpuscular Volume 92.1 fL (81-99); Mean Platelet Vol. 10.1 fl (6.2-12.0); Monocyte# 0.57 X10^3/uL; Monocyte% 10.8 % (0-10); NRBC Flagged by Analyzer 0 % (0-5); Neutrophil # 2.98 X10^3/uL (2.7-7.7); Neutrophil % 56.6 % (47-70); Platelet Count 207 K/mm3 (150-450); RBC Distribution Width CV 14.6 % (11.6-14.6); RBC Distribution Width SD 49.7 fl (35.1-43.9); Red Blood Count 4.16 M/mm3 (4.2-5.4); White Blood Count 5.3 K/mm3 (4.4-11.0)
[2023-07-14 17:54] LABS: Erythrocyte Sedimentation Rate 22 mm/hr (0-30)
== END | disposition home or self-care (01) ==
PROVIDERS: Referring Provider Physician Assistant Surgical; Visit Provider Physician Assistant Surgical
DX: T84.022D Instability of internal right knee prosthesis, subsequent encounter (principal); Z96.653 Presence of artificial knee joint, bilateral; X58.XXXA Exposure to other specified factors, initial encounter
CPT/HCPCS: 36415; 85025; 85652; 86140

== ENCOUNTER → 2024-10-25 | Outpatient (CLI) | payer MEDICARE, OTHER, SELFPAY ==
[2024-10-25 12:37] LABS: SERUM TEARS COLLECTION SPECIMEN PROCESSED
== END | disposition home or self-care (01) ==
LOC: LAB 10:07
PROVIDERS: Referring Provider Ophthalmology; Visit Provider Ophthalmology
DX: H04.123 Dry eye syndrome of bilateral lacrimal glands (principal)
CPT/HCPCS: 36415